=== PATIENT | female | born 1955 | race Caucasian/White ===

== ENCOUNTER 2018-09-23 00:39 | Emergency (ER) | payer BC, OTHER ==
[2018-09-23] MEDS ORDERED: ACETAMINOPHEN 500 MG TAB ONE (01:13)
--- NOTE | 2018-09-23 01:33 | ER ---
Nurse's Notes [facility] Name: Kecia Schilling Age: 63 yrs Sex: Female : 1955 Arrival Date: 09/23/2018 Time: 00:40 Bed 18 Private MD: Lizzette Guerrero R Diagnosis: Fracture distal left radius. Fracture of the left L2 transverse process Presentation: 09/23 01:00 Presenting complaint: Patient states: Reports she tripped and caught herself with her ea left hand and injured her left wrist. Transition of care: patient was not received from another setting of care. Onset of symptoms was September 23, 2018. Risk Assessment: Do you want to hurt yourself or someone else? Patient reports no desire to harm self or others. Initial Sepsis Screen: Does the patient meet any 2 criteria? No. Patient's initial sepsis screen is negative. Does the patient have a suspected source of infection? No. Patient's initial sepsis screen is negative. Care prior to arrival: None. 01:00 Method Of Arrival: Ambulatory ea 01:00 Acuity: RISSA 4 ea Triage Assessment: 01:10 General: Appears uncomfortable, Behavior is calm, cooperative, appropriate for age. ea Pain: Complains of pain in left wrist Pain does not radiate. Pain currently is 9 out of 10 on a pain scale. Quality of pain is described as aching. Neuro: Level of Consciousness is awake, alert, obeys commands, Oriented to person, place, time, situation. Cardiovascular: Patient's skin is warm and dry. Respiratory: Airway is patent Respiratory effort is even, unlabored, Respiratory pattern is regular, symmetrical. Musculoskeletal: Range of motion: limited in left wrist Swelling present in left wrist. Injury Description: swelling noted to left wrist. Historical: - Allergies: 01: Iodine; ea :26 Codeine; pt reports it causes nausea; ea - Home Meds: 01: acyclovir 400 mg Oral tab 1 tab every 8 hours [Active]; alprazolam 1 mg Oral tab 1 tab ea Q HS [Active]; aspirin 81 mg Oral chew 1 tab once daily [Active]; atenolol 100 mg Oral tab 1 tab once daily [Active]; atorvastatin 40 mg oral tab 1 tab once daily [Active]; bupropion HCl 150 mg Oral TbER 1 tab 2 times per day [Active]; furosemide 20 mg Oral tab 1 tab once daily [Active]; gabapentin 300 mg oral cap [Active]; - PMHx: :26 Hypothyroidism; Hypertension; ea - PSHx: :26 None; ea - Immunization history:: Adult Immunizations up to date. - Social history:: Smoking status: Patient/guardian denies using tobacco. - Ebola Screening: : No symptoms or risks identified at this time. Screenin:14 Abuse screen: Denies threats or abuse. Nutritional screening: No deficits noted. ea Tuberculosis screening: No symptoms or risk factors identified. Fall Risk Fall in past 12 months (25 points). Assessment: 02:06 Reassessment: Patient and/or family updated on plan of care and expected duration. Pain ea level reassessed. Patient is alert, oriented x 3, equal unlabored respirations, skin warm/dry/pink. Discharge instruction given to patient, verbalized the understanding of instruction. 02:15 Reassessment: Patient and/or family updated on plan of care and expected duration. Pain ea level reassessed. Upon discharge pt complaining of left hip pain. Charge nurse notified, provider at bedside assessing pt. 03:53 Reassessment: Patient and/or family updated on plan of care and expected duration. Pain ea level reassessed. Patient is alert, oriented x 3, equal unlabored respirations, skin warm/dry/pink. Discharge instruction given to patient, verbalized the understanding of instruciton. Vital Signs: 01:14 BP 147 / 88; Pulse 58; Resp 18; Temp 97.6; Pulse Ox 98% ; Weight 90.72 kg; Height 5 ft. ea 6 in. (167.64 cm); Pain 9/10; 03:45 BP 138 / 70; Pulse 60; Resp 18; Temp 97.6; Pulse Ox 99% ; ea 01:14 Body Mass Index 32.28 (90.72 kg, 167.64 cm) ea ED Course: 00:40 Patient arrived in ED. ds1 00:40 Lizzette Guerrero MD is Private Physician. ds1 00:41 Nimesh Vázquez MD is Attending Physician. pkl 01:00 Arm band placed on right wrist. Patient placed in an exam room, on a stretcher, on ea pulse oximetry. 01:00 Patient has correct armband on for positive identification. Bed in low position. Call ea light in reach. Side rails up X 1. 01:06 X-ray completed. Portable x-ray completed in exam room. Patient tolerated procedure kw well. 01:08 Wrist Left (3 View) XRAY In Process Unspecified. EDMS 01:13 Heather Bryant RN is Primary Nurse. ea 01:16 Triage completed. ea 01:45 Orthoglass splint: Sugar tong splint applied on left arm. Sling applied to left arm. ea 02:06 No provider procedures requiring assistance completed. Patient did not have IV access ea during this emergency room visit. 02:17 Primary Nurse role handed off by Heather Bryant RN bb 02:32 Heather Bryant RN is Primary Nurse. ea 02:38 Patient moved to radiology via wheelchair. kw 02:38 X-ray completed. Patient tolerated procedure well. kw 03:07 XRAY Hip LEFT 2 view In Process Unspecified. EDMS 03:07 XRAY Pelvis In Process Unspecified. EDMS 03:[address] via wheelchair. kw1 03:18 CT Lumbar Spine Wo Con In Process Unspecified. EDMS 03:19 CT completed. Patient tolerated procedure well. Patient moved back from CT. kw1 Administered Medications: 01:13 Drug: Tylenol 1000 mg Route: PO; ea 02:08 Follow up: Response: Pain is decreased ea 01:54 Drug: Zofran 4 mg Route: PO; ea 02:10 Follow up: Response: Medication administered at discharge. ea 01:55 Drug: [place] 5 mg-325 mg 1 tabs Route: PO; ea 02:08 Follow up: Response: Medication administered at discharge. ea Outcome: 01:32 Discharge ordered by . pkfred 02:06 Discharged to home ambulatory, with family. ea 02:06 Condition: improved 02:06 Discharge instructions given to patient, Instructed on discharge instructions, follow up and referral plans. medication usage, Demonstrated understanding of instructions, follow-up care, medications, Prescriptions given X 2. 02:08 Patient left the ED. ea 03:54 Patient left the ED. ea Signatures: Dispatcher [employer] EDNimesh Simmons MD MD pkl [place]ford, Demi ds1 Brittanie Sanchez RN RN bb Whitley, Kimberlee kw Heather Bryant RN RN ea Wilhelm, Esperanza kw1
--- NOTE | 2018-09-23 01:33 | EDPHYS ---
Physician Documentation [facility] Name: Kecia Schilling Age: 63 yrs Sex: Female : 1955 Arrival Date: 09/23/2018 Time: 00:40 Bed 18 Private MD: Lizzette Guerrero R ED Physician Nimesh Vázquez HPI: 09/23 00:51 This 63 yrs old Female presents to ER via Unassigned with complaints of Wrist pkl Injury. 00:51 The patient or guardian reports injury, pain. The complaints affect the left wrist pkl diffusely. Context: resulted from a fall. Onset: The symptoms/episode began/occurred just prior to arrival, 1 hour(s) ago. Associated signs and symptoms: The patient has no apparent associated signs or symptoms. Historical: - Allergies: : Iodine; ea 01: Codeine; pt reports it causes nausea; ea - Home Meds: : acyclovir 400 mg Oral tab 1 tab every 8 hours [Active]; alprazolam 1 mg Oral tab 1 tab ea Q HS [Active]; aspirin 81 mg Oral chew 1 tab once daily [Active]; atenolol 100 mg Oral tab 1 tab once daily [Active]; atorvastatin 40 mg oral tab 1 tab once daily [Active]; bupropion HCl 150 mg Oral TbER 1 tab 2 times per day [Active]; furosemide 20 mg Oral tab 1 tab once daily [Active]; gabapentin 300 mg oral cap [Active]; - PMHx: 01:26 Hypothyroidism; Hypertension; ea - PSHx: : None; ea - Immunization history:: Adult Immunizations up to date. - Social history:: Smoking status: Patient/guardian denies using tobacco. - Ebola Screening: : No symptoms or risks identified at this time. ROS: 00:51 Eyes: Negative for injury, pain, redness, and discharge, ENT: Negative for injury, pkl pain, and discharge, Neck: Negative for injury, pain, and swelling, Cardiovascular: Negative for chest pain, palpitations, and edema, Respiratory: Negative for shortness of breath, cough, wheezing, and pleuritic chest pain, Abdomen/GI: Negative for abdominal pain, nausea, vomiting, diarrhea, and constipation, Back: Negative for injury and pain, : Negative for injury, bleeding, discharge, and swelling, Skin: Negative for injury, rash, and discoloration, Neuro: Negative for headache, weakness, numbness, tingling, and seizure. 00:51 MS/extremity: Positive for injury or acute deformity, pain, of the left wrist. Exam: 00:51 Head/Face: Normocephalic, atraumatic. Eyes: Pupils equal round and reactive to light, pkl extra-ocular motions intact. Lids and lashes normal. Conjunctiva and sclera are non-icteric and not injected. Cornea within normal limits. Periorbital areas with no swelling, redness, or edema. ENT: Nares patent. No nasal discharge, no septal abnormalities noted. Tympanic membranes are normal and external auditory canals are clear. Oropharynx with no redness, swelling, or masses, exudates, or evidence of obstruction, uvula midline. Mucous membranes moist. Neck: Trachea midline, no thyromegaly or masses palpated, and no cervical lymphadenopathy. Supple, full range of motion without nuchal rigidity, or vertebral point tenderness. No Meningismus. Chest/axilla: Normal chest wall appearance and motion. Nontender with no deformity. No lesions are appreciated. Cardiovascular: Regular rate and rhythm with a normal S1 and S2. No gallops, murmurs, or rubs. Normal PMI, no JVD. No pulse deficits. Respiratory: Lungs have equal breath sounds bilaterally, clear to auscultation and percussion. No rales, rhonchi or wheezes noted. No increased work of breathing, no retractions or nasal flaring. Abdomen/GI: Soft, non-tender, with normal bowel sounds. No distension or tympany. No guarding or rebound. No evidence of tenderness throughout. Back: No spinal tenderness. No costovertebral tenderness. Full range of motion. Skin: Warm, dry with normal turgor. Normal color with no rashes, no lesions, and no evidence of cellulitis. Neuro: Awake and alert, GCS 15, oriented to person, place, time, and situation. Cranial nerves II-XII grossly intact. Motor strength 5/5 in all extremities. Sensory grossly intact. Cerebellar exam normal. Normal gait. 00:51 Musculoskeletal/extremity: Extremities: grossly normal except: noted in the left wrist: pain, tenderness. Vital Signs: 01:14 BP 147 / 88; Pulse 58; Resp 18; Temp 97.6; Pulse Ox 98% ; Weight 90.72 kg; Height 5 ft. ea 6 in. (167.64 cm); Pain 9/10; 03:45 BP 138 / 70; Pulse 60; Resp 18; Temp 97.6; Pulse Ox 99% ; ea 01:14 Body Mass Index 32.28 (90.72 kg, 167.64 cm) ea Procedures: 01:35 Splinting: Splint applied to left wrist using sling, sugar tong splint. applied by pkl tech. Examined by me, post splint application: neurovascular intact, 2+ distal pulses palpable, brisk capillary refill noted, Patient tolerated well. MDM: 00:41 Patient medically screened. pkl 01:31 Data reviewed: vital signs, nurses notes, radiologic studies, plain films. pkl 03:33 ED course: Patient now complain of left pelvic and low back pain. Xrays left hip and pkl pelvis showed no fractures. CT Scan of lumbar showed fracture of the left L2 transverse process. 09/23 00:51 Order name: Wrist Left (3 View) XRAY pkl 09/23 02:18 Order name: XRAY Hip LEFT 2 view 09/23 02:22 Order name: XRAY Pelvis 09/23 02:53 Order name: CT Lumbar Spine Wo Con pkl 09/23 01:35 Order name: Splint - Sugar Tong - Forearm; Complete Time: 02:08 pkl 09/23 01:35 Order name: Sling; Complete Time: 02:08 pkl Administered Medications: 01:13 Drug: Tylenol 1000 mg Route: PO; ea 02:08 Follow up: Response: Pain is decreased ea 01:54 Drug: Zofran 4 mg Route: PO; ea 02:10 Follow up: Response: Medication administered at discharge. ea 01:55 Drug: [place] 5 mg-325 mg 1 tabs Route: PO; ea 02:08 Follow up: Response: Medication administered at discharge. ea Disposition: 09/23/18 01:32 Discharged to Home. Impression: Fracture distal left radius. Fracture of the left L2 transverse process. - Condition is Stable. - Prescriptions for Ultram 50 mg Oral Tablet - take 1 tablet by ORAL route every 8 hours As needed; 20 tablet. Zofran 4 mg Oral Tablet - take 1 tablet by ORAL route every 12 hours As needed; 10 tablet. - Medication Reconciliation Form, Thank You Letter, Antibiotic Education, Prescription Opioid Use form. - Follow up: Private Physician; When: 1 - 2 days; Reason: Re-evaluation by your physician. - Problem is new. - Symptoms have improved. Signatures: Dispatcher [employer] EDMS Nimesh Vázquez MD MD pkl Heather Bryant RN JOSE ea Corrections: (The following items were deleted from the chart) 02:08 01:32 09/23/2018 01:32 Discharged to Home. Impression: Fracture distal left radius. ea Condition is Stable. Forms are Medication Reconciliation Form, Thank You Letter, Antibiotic Education, Prescription Opioid Use. Follow up: Private Physician; When: 1 - 2 days; Reason: Re-evaluation by your physician. Problem is new. Symptoms have improved. pkl 03:37 02:08 09/23/2018 01:32 Discharged to Home. Impression: Fracture distal left radius. pkl Condition is Stable. Prescriptions for Ultram 50 mg Oral Tablet - take 1 tablet by ORAL route every 8 hours As needed; 20 tablet, Zofran 4 mg Oral Tablet - take 1 tablet by ORAL route every 12 hours As needed; 10 tablet. and Forms are Medication Reconciliation Form, Thank You Letter, Antibiotic Education, Prescription Opioid Use. Follow up: Private Physician; When: 1 - 2 days; Reason: Re-evaluation by your physician. Problem is new. Symptoms have improved. ea 03:54 03:37 09/23/2018 01:32 Discharged to Home. Impression: Fracture distal left radius. ea Fracture of the left L2 transverse process. Condition is Stable. Prescriptions for Ultram 50 mg Oral Tablet - take 1 tablet by ORAL route every 8 hours As needed; 20 tablet, Zofran 4 mg Oral Tablet - take 1 tablet by ORAL route every 12 hours As needed; 10 tablet. and Forms are Medication Reconciliation Form, Thank You Letter, Antibiotic Education, Prescription Opioid Use. Follow up: Private Physician; When: 1 - 2 days; Reason: Re-evaluation by your physician. Problem is new. Symptoms have improved. pkl
[2018-09-23] MEDS ORDERED: HYDROCODONE/APAP 5/325 MG TAB ONE (01:59)
[2018-09-23] MEDS ORDERED: ONDANSETRON 4 MG (ODT) TAB ONE (02:00)
--- NOTE | 2018-09-23 08:29 | RAD REPORT ---
EXAM DESCRIPTION: RAD - Wrist Left 3 View - 09/23/2018 1:08 am CLINICAL HISTORY: fall;Pain Pain COMPARISON: No comparisons FINDINGS: Mildly impacted fracture of the distal radial metaphysis is present. Soft tissue swelling is noted without dislocation seen.
--- NOTE | 2018-09-23 08:48 | RAD REPORT ---
EXAM DESCRIPTION: RAD - Hip Left 2 View - 09/23/2018 2:41 am CLINICAL HISTORY: PAIN Fall, trauma, left hip pain COMPARISON: None FINDINGS: AP pelvis and left hip, multiple projections are submitted No fracture, dislocation or AVN is seen. No aggressive bone lesion.
--- NOTE | 2018-09-23 08:53 | RAD REPORT ---
EXAM DESCRIPTION: CT - Spine Lumbar Wo Con - 09/23/2018 5:54 am CLINICAL HISTORY: Radiculopathy. fall;Lower back pain COMPARISON: No comparisons TECHNIQUE: Axial noncontrast CT imaging of the lumbar spine was performed with coronal and sagittal re-formatted images. All CT scans are performed using dose optimization technique as appropriate and may include automated exposure control or mA/KV adjustment according to patient size. FINDINGS: Fracture of the left L2 transverse process is noted. No additional fracture seen. No aggre ssive marrow pattern or malalignment. Paraspinal tissues are normal in thickness. No paraspinal abscess or hematoma seen. Mild spondylosis is present at L2-3 with a posterior disc bulge. IMPRESSION: Fracture of left L2 transverse process. Consider MRI follow-up for assessment of disc disease if clinically desired.
--- NOTE | 2018-09-23 09:42 | RAD REPORT ---
EXAM DESCRIPTION: RAD - Pelvis - 09/23/2018 2:44 am CLINICAL HISTORY: PAIN Fall, trauma, left hip pain COMPARISON: None FINDINGS: AP pelvis and left hip, multiple projections are submitted No fracture, dislocation or AVN is seen. No aggressive bone lesion.
== END 2018-09-23 03:54 | disposition home or self-care (01) ==
LOC: ER 00:39
PROC: 2W3DX1Z Immobilization of Left Lower Arm using Splint (ICD-10-PCS; principal; 2018-09-23)
DX: S52.502A Unspecified fracture of the lower end of left radius, initial encounter for closed fracture (principal); S32.028A Other fracture of second lumbar vertebra, initial encounter for closed fracture; W18.40XA Slipping, tripping and stumbling without falling, unspecified, initial encounter; E03.9 Hypothyroidism, unspecified; I10 Essential (primary) hypertension; Z79.82 Long term (current) use of aspirin; Z79.899 Other long term (current) drug therapy
CPT/HCPCS: 72131; 72170; 99284

== ENCOUNTER 2019-01-05 08:36 | Inpatient (IN) | payer BC ==
--- OUTSIDE RECORDS SUMMARY | 2019-01-05 08:38 | XMS REPORT ---
:1955 [facility] Address [address] [place] [address] Care Team Providers Name Role Phone Unavailable Unavailable Unavailable Problems This patient has no known problems. Allergies, Adverse Reactions, Alerts This patient has no known allergies or adverse reactions. Medications This patient has no known medications.
--- OUTSIDE RECORDS SUMMARY | 2019-01-05 08:38 | XMS REPORT ---
:1955 Author Organization [employer] Care Team Providers Name Role Phone Rc Griffin Provider Role Unavailable Allergies, Adverse Reactions, Alerts Substance Reaction Event Type codeine nausea and vomiting Drug Allergy Problems Problem Type Condition Code Onset Dates Condition Status Problem Acute pain of left wrist M25.532 Active Problem Closed torus fracture of distal S52.522A Active end of left radius, initial encounter Problem Torus fracture of lower end of S52.522D Active left radius, subsequent encounter for fracture with routine healing Assessment Torus fracture of lower end of S52.522D Active left radius, subsequent encounter for fracture with routine healing Assessment Acute pain of left wrist M25.532 Active Medications Medication Code System Code Instructions Start End Date Status Dosage Date Gabapentin NDC 0 Active not defined Tramadol HCl NDC 0 Active not defined HydrALAZINE HCl [facility] 13958-91 Active not defined 34-15 Atenolol NDC 0 Active not defined Ranitidine NDC 0 [place] [address]-10 Active not defined 67-75 [place] [address]-83 Active not defined Calcium 57-98 Vitamin E [facility] 36386-82 Active not defined 685 [place] [address]-12 Active not defined Potassium-HCTZ 69-10 potassium NDC 0 Active not defined Oscal 500/200 D-3 [facility] 28545-49 Active not defined 51-07 Aspirin 81 [facility] 56040-51 Active not defined 381 [place] [address]-22 Active not defined 25-11 BuPROPion HCl ER [facility] 65078-28 Active not defined (SR) 45-13 Acyclovir [facility] 69951-03 Active not defined 49-01 Fluticasone [facility] 45601-81 Active not defined Propionate 75-01 Mucinex [facility] 77499-09 Active not defined 45-20 [place] [address]-35 Active not defined 39-10 [place] [address]-35 Active not defined 82-20 Levothyroxine [facility] 76968-40 Active not defined Sodium 01-01 Results No Known Results Summary Purpose [employer] Submission
--- OUTSIDE RECORDS SUMMARY | 2019-01-05 08:38 | XMS REPORT ---
:1955 Author Organization [employer] Care Team Providers Name Role Phone Rc Griffin Provider Role Unavailable Allergies, Adverse Reactions, Alerts Substance Reaction Event Type codeine nausea and vomiting Drug Allergy Problems Problem Type Condition Code Onset Dates Condition Status Assessment Encounter for other orthopedic Z47.89 Active aftercare Problem Torus fracture of lower end of S52.522D Active left radius, subsequent encounter for fracture with routine healing Problem Acute pain of left wrist M25.532 Active Problem Encounter for other orthopedic Z47.89 Active aftercare Assessment Acute pain of left wrist M25.532 Active Assessment Torus fracture of lower end of S52.522D Active left radius, subsequent encounter for fracture with routine healing Problem Closed torus fracture of distal S52.522A Active end of left radius, initial encounter Medications Medication Code System Code Instructions Start End Date Status Dosage Date BuPROPion HCl ER [facility] 02104-24 Active not defined (SR) 45-13 Gabapentin [facility] 22495-27 Active not defined 40-01 HydrALAZINE HCl [facility] 04690-25 Active not defined 34-15 Tramadol HCl NDC 0 Active not defined Mucinex [facility] 24591-91 Active not defined 45-20 Fluticasone [facility] 14398-64 Active not defined Propionate 75-01 Acyclovir [facility] 25993-70 Active not defined 49-01 Oscal 500/200 D-3 [facility] 56236-81 Active not defined 51-07 Furosemide [facility] 65769-13 Active not defined 39-10 Ranitidine NDC 0 Active not defined Vitamin E [facility] 85477-62 Active not defined 685 Aspirin 81 [facility] 65317-25 Active not defined 381 Fish Oil [facility] 49431-46 Active not defined 67-75 Atorvastatin [facility] 11635-22 Active not defined Calcium 57-98 potassium NDC 0 Active not defined Alprazolam [facility] 60723-72 Active not defined 25-11 Levothyroxine [facility] 11681-93 Active not defined Sodium 01-01 Ventolin HFA [facility] 31507-41 Active not defined 82-20 Atenolol ND 0 Active not defined Losartan [facility] 94610-65 Active not defined Potassium-HCTZ 69-10 Results No Known Results Summary Purpose [employer] Submission
--- OUTSIDE RECORDS SUMMARY | 2019-01-05 08:38 | XMS REPORT ---
[...] Instructions Start End Date Status Dosage Date Losartan [facility] 70255-49 Active not defined Potassium-HCTZ 69-10 Furosemide [facility] 74048-97 Active not defined 39-10 Alprazolam [facility] 30217-05 Active not defined 25-11 Fluticasone [facility] 55477-02 Active not defined Propionate 75-01 Gabapentin [facility] 49089-04 Active not defined 40-01 Oscal 500/200 D-3 [facility] 52736-56 Active not defined 51-07 HydrALAZINE HCl [facility] 95126-09 Active not defined 34-15 BuPROPion HCl ER [facility] 97013-48 Active not defined (SR) 45-13 Levothyroxine [facility] 28870-41 Active not defined Sodium 01-01 Atorvastatin [facility] 88305-35 Active not defined Calcium 57-98 Tramadol HCl NDC 0 Active not defined potassium NDC 0 Active not defined Vitamin E [facility] 43793-16 Active not defined 685 Atenolol NDC 0 Active not defined Ventolin HFA [facility] 44787-82 Active not defined 82-20 Ranitidine NDC 0 Active not defined Acyclovir [facility] 33090-81 Active not defined 49-01 Aspirin 81 [facility] 15050-09 Active not defined 381 Fish Oil [facility] 20581-52 Active not defined 67-75 Mucinex [facility] 60720-33 Active not defined 45-20 Results No Known Results Summary Purpose [employer] Submission
[2019-01-05 09:18] LABS: Absolute Lymphocytes (CBC) 1.5 K/uL (0.7-4.9); Absolute Monocytes 2.3 K/uL (0.1-1.3); Absolute Neutrophil 15.7 K/uL (1.8-8.0); Basophils % 0.1 % (0-1.3); Eosinophils % 0.7 % (0-4.4); Lymphocytes % 7.8 % (15.3-44.8); MPV 7.7 fL (7.6-11.3); Monocytes % 11.9 % (3.3-12.3); RBC Red Blood Cell Count 4.18 M/uL (3.86-4.86)
[2019-01-05] MEDS ORDERED: NA CHLORIDE 0.9% 1,000 ML ONE ×3 (09:18→16:07)
[2019-01-05 09:44] LABS: BUN Blood Urea Nitrogen 6 mg/dL (7-18); Bicarbonate 29 mmol/L (21-32); Glucose Level 133 mg/dL (74-106); Potassium 2.6 mmol/L (3.5-5.1)
[2019-01-05 09:49] LABS: Sodium Level 113 mmol/L (136-145)
[2019-01-05] MEDS ORDERED: POTASSIUM CL SA 10 MEQ TAB PO ONE (10:11)
[2019-01-05] MEDS ORDERED: KCL 20 MEQ/100 mL IVPB 0 MEQ/0 ML BAG IV ONE (10:12)
[2019-01-05] MEDS ORDERED: HYDROCODONE/APAP 5/325 MG TAB ONE ×2 (10:12→16:52)
[2019-01-05] MEDS ORDERED: ONDANSETRON 4 MG/2 ML VIAL ONE ×2 (10:12→18:25)
--- NOTE | 2019-01-05 10:35 | ER ---
Nurse's Notes [facility] Name: Kecia Schilling Age: 63 yrs Sex: Female : 1955 Arrival Date: 01/05/2019 Time: 08:39 Bed 19 Private MD: Lizzette Guerrero R Diagnosis: Hyponatremia;Hypokalemia;Weakness;Influenza due to identified novel influenza A virus Presentation: 01/05 08:56 Presenting complaint: Patient states: Flu like symptoms/body aches, cough, congestion for the past 7 days, taking tamiflu and cefuroxime 500 mg bid, now c/o difficulty starting her urine stream.c/o generalized body aches. Transition of care: patient was not received from another setting of care. Onset of symptoms was December 29, 2018. Risk Assessment: Do you want to hurt yourself or someone else? Patient reports no desire to harm self or others. Initial Sepsis Screen: Does the patient meet any 2 criteria? No. Patient's initial sepsis screen is negative. Does the patient have a suspected source of infection? No. Patient's initial sepsis screen is negative. Care prior to arrival: None. 08:56 Method Of Arrival: Wheelchair 08:56 Acuity: RISSA 3 Triage Assessment: 08:58 General: Appears in no apparent distress. comfortable, Behavior is fussy. Pain: Complains of pain in head, neck, chest, abdomen, pelvis, right arm, right hand, left arm, left hand, right leg, right foot, left leg, left foot, back of head, back of left arm, back of right arm, posterior chest, buttocks, back of left leg, back of right leg, left heel, right heel and back Pain currently is 7 out of 10 on a pain scale. EENT: Reports nasal congestion nasal discharge. Respiratory: Reports cough that is Airway is patent Respiratory effort is even, unlabored. Historical: - Allergies: 08:58 Codeine; pt reports it causes nausea; ch 08:58 Iodine; ch - Home Meds: 09:22 acyclovir 400 mg Oral tab 1 tab every 8 hours [Active]; alprazolam 1 mg Oral tab 1 tab ch Q hs [Active]; aspirin 81 mg oral TbEC 1 tab once daily [Active]; atenolol 100 mg Oral tab 1 tab once daily [Active]; atorvastatin 40 mg Oral tab 1 tab once daily [Active]; bupropion HCl 150 mg Oral TbER 1 tab 2 times per day [Active]; Claritin 10 mg Oral tab 1 tab once daily [Active]; Fish Oil oral oral [Active]; fluticasone 50 mcg/actuation nasal spsn 1 spray 2 times per day [Active]; furosemide 20 mg Oral tab 1 tab every other day-edema [Active]; gabapentin 300 mg Oral cap 1 cap twice a day [Active]; gabapentin 600 mg oral tab 1 tab 3 times per day [Active]; hydralazine 50 mg Oral tab 1 tab three times a day [Active]; levothyroxine 137 mcg tab 1 tab once daily [Active]; losartan-hydrochlorothiazide 100-25 mg oral tab 1 tab once daily [Active]; Mucinex 1,200 mg oral Ta12 [Active]; oscal 500mg one tab bid [Active]; ranitidine HCl 150 mg Oral cap 1 cap 2 times per day [Active]; Ventolin Rotahaler/Rotacaps Inhl two inhalations every 6 hours prn [Active]; vitamin E 400 unit Oral cap three times a day [Active]; - PMHx: 08:58 Hypertension; Hypothyroidism; Chronic pain; ch 09:33 mitral valve prolapse; Hyperlipidemia; trigeminal neuralgia; "allergies-severe"; edema ch R leg occasionally; neck pain; - PSHx: 09:33 Hysterectomy; neck; ch - Immunization history:: Adult Immunizations up to date, Flu vaccine status is unknown. - Social history:: Smoking status: Patient/guardian denies using tobacco, Patient/guardian denies using alcohol, street drugs. - Ebola Screening: : Patient negative for fever greater than or equal to 101.5 degrees Fahrenheit, and additional compatible Ebola Virus Disease symptoms Patient denies exposure to infectious person Patient denies travel to an Ebola-affected area in the 21 days before illness onset No symptoms or risks identified at this time. Screenin:22 Abuse screen: Denies threats or abuse. Denies injuries from another. Nutritional ch screening: No deficits noted. Tuberculosis screening: No symptoms or risk factors identified. Fall Risk None identified. Assessment: 09:13 Reassessment: awaiting lab results prior to medicating pt with tordal. ch 10:00 Reassessment: Patient appears in no apparent distress at this time. Patient and/or family updated on plan of care and expected duration. Pain level reassessed. Patient is alert, oriented x 3, equal unlabored respirations, skin warm/dry/pink. Patient states symptoms have not improved. 11:00 Reassessment: Patient appears in no apparent distress at this time. No changes from previously documented assessment. Patient and/or family updated on plan of care and expected duration. Pain level reassessed. Patient is alert, oriented x 3, equal unlabored respirations, skin warm/dry/pink. pt labs returned, pt medicated per order, placed on tele, ekg, medications administered. pt c/o pain, medicated for that as well. pt verb understanding of admission. 12:00 Reassessment: Patient appears in no apparent distress at this time. No changes from previously documented assessment. Patient and/or family updated on plan of care and expected duration. Pain level reassessed. Patient is alert, oriented x 3, equal unlabored respirations, skin warm/dry/pink. 13:00 Reassessment: Patient appears in no apparent distress at this time. 14:00 Reassessment: Patient appears in no apparent distress at this time. pt is admitted to ICU, er hold, started at 1400. see [facility] for details. 01/06 07:00 Reassessment: RECD REPORT FROM VIN GARCIA. 63YO WF P/W FLU-LIKE S/S. ICU ADMIT IN PROCESS bp FOR INFLUENZA AND HYPONATREMIA. SEE [facility] FOR FURTHER DOCUMENTATION. Vital Signs: 01/05 08:58 BP 138 / 60; Pulse 54; Resp 14; Temp 97.4(O); Pulse Ox 99% ; Weight 90.72 kg; Height 5 ft. 4 in. (162.56 cm); Pain 7/10; 09:12 BP 125 / 58; Pulse 64; Resp 14; Temp 97.6; Pulse Ox 99% on R/A; Pain 7/10; ch 10:28 BP 146 / 78; Pulse 54; Resp 16; Temp 97.9; Pulse Ox 96% on R/A; Pain 7/10; ss 11:25 BP 149 / 62; Pulse 58; Resp 18; Temp 97.6; Pulse Ox 96% on R/A; Pain 6/10; ch 12:25 BP 151 / 78; Pulse 56; Resp 16; Pulse Ox 96% on R/A; Pain 6/10; ch 13:15 BP 151 / 73; Pulse 61; Resp 19; Temp 97.4; Pulse Ox 96% on R/A; Pain 5/10; ch 08:58 Body Mass Index 34.33 (90.72 kg, 162.56 cm) ch ED Course: 08:39 Patient arrived in ED. mr 08:40 Lizzette Guerrero MD is Private Physician. mr 08:40 Rosemary Cardenas [facility]-C [facility]. kb 08:40 Felix Lopez MD is Attending Physician. kb 08:56 Marcela Chavis, JOSE is Primary Nurse. ch 08:58 Triage completed. ch 08:58 Arm band placed on left wrist. Patient placed in an exam room, on a stretcher, on pulse ch oximetry. 09:00 Inserted saline lock: 18 gauge in right antecubital area, using aseptic technique. Blood collected. 09:12 Basic Metabolic Panel Sent. ch 09:12 CBC with Diff Sent. ch 09:22 Patient has correct armband on for positive identification. Bed in low position. Call light in reach. Side rails up X2. Adult w/ patient. Pulse ox on. NIBP on. Warm blanket given. Pillow given. PO fluids given. 09:22 No provider procedures requiring assistance completed. ch 09:24 X-ray completed. la2 09:24 Chest Pa And Lat (2 Views) XRAY In Process Unspecified. EDMS 10:28 Urine Osmolality Sent. ss 10:28 Osmolality, Serum Sent. ss 10:28 Urine Sodium Random Sent. ss 10:28 Phosphorus Sent. ss 10:33 Narcisa Vasquez MD is Hospitalizing Provider. kb 12:00 Inserted saline lock: 22 gauge in left hand, using aseptic technique. ch 12:00 Patient admitted, IV remains in place. ch 13:00 No apparent distress. Resting quietly. ch 13:00 hospital monitor on. ch 19:28 Phosphorus Sent. ch 19:28 BMP Sent. ch 19:28 Magnesium Sent. ch 19:28 Urine Potassium Random Sent. ch 01/06 07:30 Patient moved to radiology via wheelchair. jb2 07:41 X-ray completed. Patient tolerated procedure well. Patient moved back from radiology. jb2 Administered Medications: 01/05 09:11 Drug: NS 0.9% 1000 ml Route: IV; Rate: 1000 ml; Site: right antecubital; ch 09:45 Follow up: IV Status: Completed infusion; IV Intake: 1000ml ch 09:52 CANCELLED (Other Intervention Used): NS 0.9% with KCl 40 mEq/L 1000 ml IV at 250 ml/hr kb continuous 10:05 Drug: Zofran 4 mg Route: IVP; Site: right antecubital; ss 12:50 Follow up: Response: No adverse reaction ch 10:08 Drug: NS 0.9% 1000 ml Route: IV; Rate: 75 ml/hr; Site: right antecubital; ss 13:29 Follow up: IV Status: Infusion continued upon admission; IV Intake: 300ml ch 10:10 Drug: [place] 5 mg-325 mg 1 tabs Route: PO; ss 13:26 Follow up: Response: No adverse reaction; Marked relief of symptoms ch 10:15 Drug: Potassium Chloride 20 mEq Route: IV; Rate: calculated rate; Site: right ss antecubital; 13:27 Follow up: IV Status: Completed infusion; IV Intake: 100ml ch 10:17 Drug: Potassium Chloride 40 mEq Route: PO; ss 13:28 Follow up: Response: No adverse reaction; No change in condition ch 13:05 Drug: Gabapentin 600 mg Route: PO; ch 16:30 Follow up: Response: No adverse reaction ch 13:05 Drug: morphine 2 mg Route: IVP; Site: right antecubital; ch 16:29 Follow up: Response: No adverse reaction ch 13:15 Drug: Potassium Phosphate 15 mmol Route: IV; Rate: calculated rate; Site: right ch antecubital; 13:28 Follow up: IV Status: Infusion continued upon admission ch 17:20 Drug: Gabapentin 300 mg Route: PO; ch 19:00 Follow up: Response: No adverse reaction ch 17:20 Drug: Atenolol 100 mg Route: PO; ch 19:20 Follow up: Response: No adverse reaction ss Intake: 09:45 IV: 1000ml; Total: 1000ml. ch 13:27 IV: 100ml; Total: 1100ml. ch 13:29 IV: 300ml; Total: 1400ml. ch Outcome: 10:34 Decision to Hospitalize by Provider. kb 03/11 16:33 Admitted to ICU accompanied by nurse, via stretcher, room 3, on monitor, with chart, bp Report called to MAYA GARCIA Condition: stable Instructed on the need for admit. 16:34 Patient left the ED. bp Signatures: Dispatcher [employer] EDMS Rosemary Cardenas, DAMAGE ASSESSOR-C DAMAGE ASSESSOR-Marcela Durham, RN RN Kady Torres Jesse jb2 Deisi Cruz RN RN Jannette Scanlon Brian, RN RN bp Corrections: (The following items were deleted from the chart) 01/05 09:24 09:23 X-ray completed. Portable x-ray completed in exam room. Patient tolerated la2 procedure well. la2 01/06 08:06 07:30 BP 149 / 65; Pulse 71bpm; Resp 16bpm; Pulse Ox 97%; bp bp
--- NOTE | 2019-01-05 10:35 | EDPHYS ---
Physician Documentation [facility] Name: Kecia Schilling Age: 63 yrs Sex: Female : 1955 Arrival Date: 01/05/2019 Time: 08:39 Bed 19 Private MD: Lizzette Guerrero R ED Physician Felix Lopez HPI: 01/05 10:35 This 63 yrs old Female presents to ER via Wheelchair with complaints of Flu kb Symptoms. 10:35 The patient or guardian reports cough, that is intermittent, described as moderate, kb with no sputum, flu symptoms, arthralgias, low-grade fever, myalgias, no appetite. Onset: The symptoms/episode began/occurred 1 week(s) ago. Severity of symptoms: At their worst the symptoms were moderate, in the emergency department the symptoms are unchanged. Modifying factors: The symptoms are alleviated by nothing, the symptoms are aggravated by nothing. Associated signs and symptoms: Pertinent positives: fever, rhinorrhea, sore throat, Pertinent negatives: chest pain, diarrhea, ear ache, nausea, vomiting. The patient has not experienced similar symptoms in the past. The patient has been recently seen by a physician: the patient's primary care provider, Dr. Barnes 4 day(s) ago, with similar presenting complaints, and apparently given a diagnosis of flu A, bronchitis, and sinus infection, was given a prescription for antibiotics. Historical: - Allergies: 08:58 Codeine; pt reports it causes nausea; ch 08:58 Iodine; ch - Home Meds: 09:22 acyclovir 400 mg Oral tab 1 tab every 8 hours [Active]; alprazolam 1 mg Oral tab 1 tab ch Q hs [Active]; aspirin 81 mg oral TbEC 1 tab once daily [Active]; atenolol 100 mg Oral tab 1 tab once daily [Active]; atorvastatin 40 mg Oral tab 1 tab once daily [Active]; bupropion HCl 150 mg Oral TbER 1 tab 2 times per day [Active]; Claritin 10 mg Oral tab 1 tab once daily [Active]; Fish Oil oral oral [Active]; fluticasone 50 mcg/actuation nasal spsn 1 spray 2 times per day [Active]; furosemide 20 mg Oral tab 1 tab every other day-edema [Active]; gabapentin 300 mg Oral cap 1 cap twice a day [Active]; gabapentin 600 mg oral tab 1 tab 3 times per day [Active]; hydralazine 50 mg Oral tab 1 tab three times a day [Active]; levothyroxine 137 mcg tab 1 tab once daily [Active]; losartan-hydrochlorothiazide 100-25 mg oral tab 1 tab once daily [Active]; Mucinex 1,200 mg oral Ta12 [Active]; oscal 500mg one tab bid [Active]; ranitidine HCl 150 mg Oral cap 1 cap 2 times per day [Active]; Ventolin Rotahaler/Rotacaps Inhl two inhalations every 6 hours prn [Active]; vitamin E 400 unit Oral cap three times a day [Active]; - PMHx: 08:58 Hypertension; Hypothyroidism; Chronic pain; ch 09:33 mitral valve prolapse; Hyperlipidemia; trigeminal neuralgia; "allergies-severe"; edema ch R leg occasionally; neck pain; - PSHx: 09:33 Hysterectomy; neck; ch - Immunization history:: Adult Immunizations up to date, Flu vaccine status is unknown. - Social history:: Smoking status: Patient/guardian denies using tobacco, Patient/guardian denies using alcohol, street drugs. - Ebola Screening: : Patient negative for fever greater than or equal to 101.5 degrees Fahrenheit, and additional compatible Ebola Virus Disease symptoms Patient denies exposure to infectious person Patient denies travel to an Ebola-affected area in the 21 days before illness onset No symptoms or risks identified at this time. ROS: 10:34 ENT: Negative for injury, pain, and discharge, Neck: Negative for injury, pain, and kb swelling, Cardiovascular: Negative for chest pain, palpitations, and edema, Abdomen/GI: Negative for abdominal pain, nausea, vomiting, diarrhea, and constipation, Back: Negative for injury and pain, : Negative for injury, bleeding, discharge, and swelling, MS/Extremity: Negative for injury and deformity, Skin: Negative for injury, rash, and discoloration, Neuro: Negative for headache, weakness, numbness, tingling, and seizure. 10:34 Constitutional: Positive for body aches, chills, fatigue, fever, malaise, Negative for poor PO intake, weight loss. 10:34 Respiratory: Positive for cough, Negative for dyspnea on exertion, hemoptysis, orthopnea, pleurisy, shortness of breath, sputum production, wheezing. Exam: 10:34 Constitutional: This is a well developed, well nourished patient who is awake, alert, kb and in no acute distress. Head/Face: Normocephalic, atraumatic. ENT: Nares patent. No nasal discharge, no septal abnormalities noted. Tympanic membranes are normal and external auditory canals are clear. Oropharynx with no redness, swelling, or masses, exudates, or evidence of obstruction, uvula midline. Mucous membranes moist. Neck: Trachea midline, no thyromegaly or masses palpated, and no cervical lymphadenopathy. Supple, full range of motion without nuchal rigidity, or vertebral point tenderness. No Meningismus. Chest/axilla: Normal chest wall appearance and motion. Nontender with no deformity. No lesions are appreciated. Cardiovascular: Regular rate and rhythm with a normal S1 and S2. No gallops, murmurs, or rubs. Normal PMI, no JVD. No pulse deficits. Respiratory: Lungs have equal breath sounds bilaterally, clear to auscultation and percussion. No rales, rhonchi or wheezes noted. No increased work of breathing, no retractions or nasal flaring. Abdomen/GI: Soft, non-tender, with normal bowel sounds. No distension or tympany. No guarding or rebound. No evidence of tenderness throughout. Back: No spinal tenderness. No costovertebral tenderness. Full range of motion. Skin: Warm, dry with normal turgor. Normal color with no rashes, no lesions, and no evidence of cellulitis. MS/ Extremity: Pulses equal, no cyanosis. Neurovascular intact. Full, normal range of motion. Neuro: Awake and alert, GCS 15, oriented to person, place, time, and situation. Cranial nerves II-XII grossly intact. Motor strength 5/5 in all extremities. Sensory grossly intact. Cerebellar exam normal. Normal gait. Vital Signs: 08:58 BP 138 / 60; Pulse 54; Resp 14; Temp 97.4(O); Pulse Ox 99% ; Weight 90.72 kg; Height 5 ch ft. 4 in. (162.56 cm); Pain 7/10; 09:12 BP 125 / 58; Pulse 64; Resp 14; Temp 97.6; Pulse Ox 99% on R/A; Pain 7/10; ch 10:28 BP 146 / 78; Pulse 54; Resp 16; Temp 97.9; Pulse Ox 96% on R/A; Pain 7/10; ss 11:25 BP 149 / 62; Pulse 58; Resp 18; Temp 97.6; Pulse Ox 96% on R/A; Pain 6/10; ch 12:25 BP 151 / 78; Pulse 56; Resp 16; Pulse Ox 96% on R/A; Pain 6/10; ch 13:15 BP 151 / 73; Pulse 61; Resp 19; Temp 97.4; Pulse Ox 96% on R/A; Pain 5/10; ch 08:58 Body Mass Index 34.33 (90.72 kg, 162.56 cm) ch MDM: 08:40 Patient medically screened. kb 10:32 Data reviewed: vital signs, nurses notes. Data interpreted: Pulse oximetry: on room air kb is 96 %. Interpretation: normal. Counseling: I had a detailed discussion with the patient and/or guardian regarding: the historical points, exam findings, and any diagnostic results supporting the discharge/admit diagnosis, lab results, radiology results, the need for further work-up and treatment in the hospital. Physician consultation: Narcisa Vasquez MD was contacted at 10:32, regarding admission, to the telemetry unit. patient's condition, and will see patient in ED, shortly. 01/05 08:50 Order name: CBC with Diff; Complete Time: 10:39 kb 01/05 08:50 Order name: Basic Metabolic Panel; Complete Time: 09:50 kb 01/05 09:25 Order name: CBC Smear Scan; Complete Time: 10:39 EDMS 01/05 09:52 Order name: Phosphorus; Complete Time: 10:48 kb 01/05 09:52 Order name: Urine Sodium Random; Complete Time: 10:51 kb 01/05 09:52 Order name: Osmolality, Serum; Complete Time: 10:50 kb 01/05 09:52 Order name: Urine Osmolality; Complete Time: 10:50 kb 01/05 10:32 Order name: Blood Culture Adult (2) kb 01/05 10:32 Order name: Procalcitonin; Complete Time: 11:36 kb 01/05 10:32 Order name: Lactate; Complete Time: 11:46 kb 01/05 10:33 Order name: Urine Dipstick--Ancillary (enter results); Complete Time: 11:11 ms 01/05 11:10 Order name: CKMB Creatine Kinase MB; Complete Time: 16:35 EDMS 01/05 11:10 Order name: Creatine Phosphokinase; Complete Time: 16:35 EDMS 01/05 11:10 Order name: Sputum Culture EDMS 01/05 08:50 Order name: Chest Pa And Lat (2 Views) XRAY; Complete Time: 11:24 kb 01/05 11:10 Order name: Urinalysis; Complete Time: 15:05 EDMS 01/05 13:48 Order name: Urine Potassium Random ss 01/05 14:01 Order name: UR POTASSIUM; Complete Time: 14:05 EDMS 01/05 16:29 Order name: Magnesium ch 01/05 16:29 Order name: BMP ch 01/05 16:29 Order name: Phosphorus ch 01/05 18:31 Order name: Basic Metabolic Panel; Complete Time: 15:05 EDMS 01/05 18:31 Order name: Phosphorus; Complete Time: 15:05 EDMS 01/05 18:31 Order name: Magnesium; Complete Time: 15:05 EDMS 01/06 00:22 Order name: Urine Microscopic Only; Complete Time: 15:05 EDMS 01/06 05:41 Order name: CBC with Automated Diff; Complete Time: 15:05 EDMS 01/06 06:03 Order name: Comprehensive Metabolic Panel; Complete Time: 15:05 EDMS 01/06 06:03 Order name: Phosphorus; Complete Time: 15:05 EDMS 01/06 06:03 Order name: Magnesium; Complete Time: 15:05 EDMS 01/06 16:31 Order name: Basic Metabolic Panel; Complete Time: 16:55 EDMS 01/05 08:50 Order name: IV Start; Complete Time: 09:42 kb 01/05 08:50 Order name: Urine Dipstick-Ancillary (obtain specimen); Complete Time: 10:28 kb 01/05 09:53 Order name: EKG; Complete Time: 09:53 kb 01/05 09:53 Order name: EKG - Nurse/Tech; Complete Time: 10:27 kb 01/06 08:39 Order name: RAD; Complete Time: 15:05 EDMS Administered Medications: 09:11 Drug: NS 0.9% 1000 ml Route: IV; Rate: 1000 ml; Site: right antecubital; ch 09:45 Follow up: IV Status: Completed infusion; IV Intake: 1000ml ch 09:52 CANCELLED (Other Intervention Used): NS 0.9% with KCl 40 mEq/L 1000 ml IV at 250 ml/hr kb continuous 10:05 Drug: Zofran 4 mg Route: IVP; Site: right antecubital; ss 12:50 Follow up: Response: No adverse reaction ch 10:08 Drug: NS 0.9% 1000 ml Route: IV; Rate: 75 ml/hr; Site: right antecubital; ss 13:29 Follow up: IV Status: Infusion continued upon admission; IV Intake: 300ml ch 10:10 Drug: [place] 5 mg-325 mg 1 tabs Route: PO; ss 13:26 Follow up: Response: No adverse reaction; Marked relief of symptoms ch 10:15 Drug: Potassium Chloride 20 mEq Route: IV; Rate: calculated rate; Site: right ss antecubital; 13:27 Follow up: IV Status: Completed infusion; IV Intake: 100ml ch 10:17 Drug: Potassium Chloride 40 mEq Route: PO; ss 13:28 Follow up: Response: No adverse reaction; No change in condition ch 13:05 Drug: Gabapentin 600 mg Route: PO; ch 16:30 Follow up: Response: No adverse reaction ch 13:05 Drug: morphine 2 mg Route: IVP; Site: right antecubital; ch 16:29 Follow up: Response: No adverse reaction ch 13:15 Drug: Potassium Phosphate 15 mmol Route: IV; Rate: calculated rate; Site: right ch antecubital; 13:28 Follow up: IV Status: Infusion continued upon admission ch 17:20 Drug: Gabapentin 300 mg Route: PO; ch 19:00 Follow up: Response: No adverse reaction ch 17:20 Drug: Atenolol 100 mg Route: PO; ch 19:20 Follow up: Response: No adverse reaction ss Disposition: 01/07 06:18 Co-signature as Attending Physician, Felix Lopez MD I agree with the assessment and isacc plan of care. Disposition: 01/05/19 10:34 Hospitalization ordered by Narcisa Vasquez for Inpatient Admission. Preliminary diagnosis are Hyponatremia, Hypokalemia, Weakness, Influenza due to identified novel influenza A virus. - Bed requested for Intensive Care Unit. - Status is Inpatient Admission. bp - Condition is Stable. - Problem is new. - Symptoms are unchanged. UTI on Admission? No Signatures: Dispatcher [employer] EDMS Rosemary Cardenas, GROUND LAYER-C GROUND LAYER-Ckb Marcela Duffy Marcela Chavis, Sun [place] RN, ch, RN RN aj1 Felix Lopez MD MD cha Solis, Maria ms Nancy, Deisi, JOSE RN ss Larry Cai, JOSE RN bp Corrections: (The following items were deleted from the chart) 01/05 09:52 09:50 NS 0.9% with KCl 40 mEq/L 1000 ml IV at 250 ml/hr continuous ordered. kb kb 13:39 10:34 Hospitalization Ordered by Narcisa Vasquez MD for Inpatient Admission. Preliminary ms diagnosis is Hyponatremia; Hypokalemia; Weakness; Influenza due to identified novel influenza A virus. Bed requested for Telemetry/MedSurg (Inpatient). Status is Inpatient Admission. Condition is Stable. Problem is new. Symptoms are unchanged. UTI on Admission? No. kb 01/06 14:53 01/05 13:39 01/05/2019 10:34 Hospitalization Ordered by Narcisa Vasquez MD for Inpatient bd Admission. Preliminary diagnosis is Hyponatremia; Hypokalemia; Weakness; Influenza due to identified novel influenza A virus. Bed requested for [facility] ER HOLD. Status is Inpatient Admission. Condition is Stable. Problem is new. Symptoms are unchanged. UTI on Admission? No. ms 01/06 16:34 14:53 01/05/2019 10:34 Hospitalization Ordered by Narcisa Vasquez MD for Inpatient bp Admission. Preliminary diagnosis is Hyponatremia; Hypokalemia; Weakness; Influenza due to identified novel influenza A virus. Bed requested for Intensive Care Unit. Status is Inpatient Admission. Condition is Stable. Problem is new. Symptoms are unchanged. UTI on Admission? No. bd
[2019-01-05 10:36] LABS: Blood Morphology Comment NOT SEEN (NOT SEEN); Platelet Estimate ADEQ; Urine White Blood Cell Casts OK
[2019-01-05 11:09] LABS: Urine Blood 1+ (NEG); Urine Glucose NEGATIVE (NEG); Urine Protein 1+ (NEG); Urine Specific Gravity 1.015 (1.005-1.030)
--- NOTE | 2019-01-05 11:20 | RAD REPORT ---
EXAM DESCRIPTION: RAD - Chest Pa And Lat (2 Views) - 01/05/2019 9:26 am CLINICAL HISTORY: Cough;Congestion Chest pain. COMPARISON: CHEST SINGLE VIEW dated 09/03/2009; CHEST PA AND LAT 2 VIEW dated 11/17/1997 FINDINGS: A few linear areas of subsegmental atelectasis are present in the left lower lobe. The dimas gs are clear of acute infiltrate. The heart is upper limit normal size. No displaced fractures. Cervi brian hardware plate is present.
[2019-01-05] MEDS ORDERED: POTASSIUM PHOS IN 0.9 % NACL 15 MMOL/250 ML BAG IV ONE (13:00)
[2019-01-05] MEDS ORDERED: GABAPENTIN 300 MG CAP ONE ×2 (13:10→17:20)
[2019-01-05] MEDS ORDERED: MORPHINE 2 MG/ML SYR ONE ×2 (13:10→13:17)
--- NOTE | 2019-01-05 13:17 | P.HP ---
Certification for Inpatient Patient admitted to: Inpatient With expected LOS: >2 Midnights Patient will require the following post-hospital care: None Practitioner: I am a practitioner with admitting privileges, knowledge of patient current condition, hospital course, and medical plan of care. Services: Services provided to patient in accordance with Admission requirements found in Title 42 Section 412.3 of the Code of Federal Regulations Patient History Date of Service: 01/05/19 Primary Care Provider: Dr. Bernard History of Present Illness: This is a 63-year-old woman with past medical history of hypertension, hypothyroidism, chronic back pain who presented to the ED complaining of having some body aches generalized weakness and flu-like symptoms. Patient stated that on she went to her primary care doctor's office and was diagnosed with influenza A and was prescribed Tamiflu along with a antibiotics. Patient stated that she however had no resolution of her symptoms and thus decided to come to the ER for further workup. Patient stated that she has not been having adequate oral intake for the past couple of days as well. Patient denied having any fever chills nausea vomiting abdominal tenderness stroke is of breath or any chest pain at this time. In the ER patient was found to have lab work which was consistent with hyponatremia and hypokalemia in dehydration and thus was admitted for further workup. Calcitonin and lactic acid were negative Allergies codeine Allergy (Verified 01/05/19 11:24) Hives/Rash iodine Allergy (Verified 01/05/19 11:24) Hives/Rash Home medications list reviewed: Yes - Past Medical/Surgical History Has patient received pneumonia vaccine in the past: No Diabetic: No -: Hypertension -: Hyperthyroid - Family History Family History: Reviewed- Non-Contributory - Social History Smoking Status: Never smoker Smoking therapy provided: No Patient receptive to therapy: No Alcohol use: No CD- Drugs: No Caffeine use: No Place of Residence: Home Review of Systems 10-point ROS is otherwise unremarkable Physical Examination - Physical Exam General: Alert, In no apparent distress, Mild distress HEENT: Atraumatic, PERRLA, Mucous membr. moist/pink, EOMI, Sclerae nonicteric Neck: Supple, 2+ carotid pulse no bruit, No LAD, Without JVD or thyroid abnormality Respiratory: Normal air movement, Expiratory wheezes, Inspiratory wheezes Cardiovascular: Regular rate/rhythm, Normal S1 S2 Gastrointestinal: Normal bowel sounds, No tenderness Musculoskeletal: No tenderness Integumentary: No rashes Neurological: Normal gait, Normal speech, Normal strength at 5/5 x4 extr, Normal tone, Normal affect Lymphatics: No axilla or inguinal lymphadenopathy - Studies Laboratory Data (last 24 hrs) 01/05/19 10:15: Phosphorus 1.7 L 01/05/19 09:00: Sodium 113 L*, Potassium 2.6 L*, BUN 6 L, Creatinine 0.61, Glucose 133 H 01/05/19 09:00: WBC 19.8 H, Hgb 13.3, Hct 37.0, Plt Count 367 Assessment and Plan - Problems (Diagnosis) (1) Hyponatremia Current Visit: Yes Status: Acute Plan: Hyponatremia along with have became the me most likely secondary to dehydration. -Will admit the patient in the ICU and start patient on IV fluids NS at 100 mL an hr -will consult Nephrology for hyponatremia -will monitor closely - (2) Influenza A Current Visit: Yes Status: Acute Plan: Patient with recent diagnosis of influenza A infection -has finished 3 days of Tamiflu. Will continue with 2 more days here in the hospital (3) Pneumonia Current Visit: Yes Status: Suspected Plan: Suspected possible post influenza pneumonia -chest x-ray with questionable pneumonia -will go ahead and start patient on Zithromax and Rocephin until sputum cultures negative -will monitor patient closely here in the hospital Qualifiers: Pneumonia type: due to unspecified organism Laterality: unspecified laterality Lung location: unspecified part of lung Qualified Code(s): J18.9 - Pneumonia, unspecified organism (4) Hypertension Current Visit: Yes Status: Chronic Plan: Will restart home med at Qualifiers: Hypertension type: essential hypertension Qualified Code(s): I10 - Essential (primary) hypertension (5) Hypothyroid Current Visit: Yes Status: Chronic Qualifiers: Hypothyroidism type: acquired Qualified Code(s): E03.9 - Hypothyroidism, unspecified (6) Chronic back pain Current Visit: Yes Status: Chronic Qualifiers: Back pain location: low back pain Back pain laterality: unspecified Sciatica presence: unspecified whether sciatica present Qualified Code(s): M54.5 - Low back pain; G89.29 - Other chronic pain - Plan Admit patient to the ICU for hypernatremic close monitoring of the neurological status. Will consult nephrology at this time. Will treat patient presumably for possible pneumonia until cultures return. Discharge Plan: Home Plan to discharge in: 48 Hours - Advance Directives Does patient have a Living Will: No Does patient have a Durable POA for Healthcare: No - Code Status/Comfort Care Code Status Assessed: Yes Critical Care: No
[2019-01-05] MEDS ORDERED: NA CHLORIDE 0.9% 500 ML IV SCH (14:00)
[2019-01-05] MEDS ORDERED: ONDANSETRON 4 MG/2 ML VIAL IV PRN (14:31)
[2019-01-05] MEDS: CEFTRIAXONE/SWI 1gm 1 GM/10 ML SYR IVP SCH (15:00)
[2019-01-05 15:24] VITALS: BMI 34.9
[2019-01-05] MEDS: ENOXAPARIN 40 MG/0.4 ML SQ SCH (15:25)
[2019-01-05] MEDS: NA CHLORIDE 0.9% 1,000 ML IV SCH ×2 (15:28→22:00)
[2019-01-05] MEDS: AZITHROMYCIN IV 500 MG in NA CHLORIDE 0.9% 250 ML IVPB SCH (15:29)
[2019-01-05] MEDS ORDERED: CEFTRIAXONE 1000 MG/VIAL ONE (16:06)
[2019-01-05] MEDS ORDERED: ENOXAPARIN 100 MG/ML SYR SQ ONE ×2 (16:07→16:20)
[2019-01-05] MEDS ORDERED: HYDROCODONE/APAP 5/325 MG TAB PO ONE ×2 (16:33→17:00)
[2019-01-05] MEDS ORDERED: ATENOLOL 50 MG TAB ONE (17:20)
[2019-01-05 17:56] LABS: BUN Blood Urea Nitrogen 6 mg/dL (7-18); Bicarbonate 27 mmol/L (21-32); Glucose Level 126 mg/dL (74-106); Magnesium 1.9 mg/dL (1.8-2.4); Phosphorus 2.1 mg/dL (2.5-4.9); Potassium 3.5 mmol/L (3.5-5.1)
--- NOTE | 2019-01-05 18:09 | CON ---
Date of Consultation: 01/05/2019 Reason For Consultation: Hyponatremia, hypokalemia, hypomagnesemia, hypophosphatemia. History Of Present Illness: This is a pleasant 63-year-old female with significant past medical hist ory of hypertension, neuropathy, and mitral valve prolapse. The patient was in her usual state of he alth, was diagnosed by Dr. Guerrero, primary care, of flu A, started on treatment. The p atient did not feel well, has nausea without any vomiting, started feeling weak. For that reason, re ported to the emergency room. In the emergency room, a primary workup showed hypophosphatemia, hypok alemia, and hyponatremia, sodium down to 113. For that reason, we have been consulted the patient de nied taking any nonsteroidal. The patient denied change in her medication except the treatment for t he flu. The patient had some seizure without any chills. The patient at home on Neurontin. The patient was started on IV fluid. Past Medical History: 1.Hypertension. 2.Mitral valve prolapse. 3.Neuropathy, on Neurontin. Family History: Positive for hypertension. Social History: Denies smoking. Denies drinking. Denies drug abuse. Allergies: CODEINE AND IODINE. Medications: Current medications in the hospital include KCl, normal saline at 75 with Lovenox 40. Review of Systems: Head and Neck: No red eye. No ear pain. GI: She has nausea. No vomiting. : No polyuria. No dysuria. No hematuria. [employer]: No vaginal discharge. Respiratory: She has cough. Cardiovascular: No chest pain. Endocrine: No polydipsia. Skin: No rash. Neuro: She has neuropathy. Musculoskeletal: Fatigue. Physical Examination: Vital Signs: When I saw the patient, blood pressure 151/70, pulse of 60, afebrile. Chest: Clear to auscultation. Heart: S1, S2 regular. Abdomen: Soft, nontender. Extremities: No edema. Laboratory Data: Sodium 113, potassium 2.6, chloride 72, bicarb 29, BUN 6, creatinine 0.6, glucose 1 33, calcium 8.4, phosphorus 1.7. WBC 19.8, H and H 13.3/37, platelets 367. Assessment And Plan: 1.Hyponatremia, mostly depletional. No neurologic symptoms. I again agree with current hydration. I will bolus the patient with 500 of normal saline. We will repeat the labs in 3 hours from now and we will follow up. I going to go ahead and get TSH and cortisol with urine electrolyte. 2.Hypokalemia and hypophosphatemia. The patient started on supplement. I am going to check for mag nesium level. 3.Hypertension, currently controlled. Hold blood pressure medication for the time being. 4.Flu as by primary. MAMI/MARY Voice ID: [id number] Report ID: [id number]
[2019-01-05 18:30] LABS: Sodium Level 116 mmol/L (136-145)
[2019-01-05] MEDS: TRAMADOL HCL 50 MG TAB PO PRN (20:08)
[2019-01-05] MEDS ORDERED: ALPRAZOLAM 1 MG TABLET ONE (20:15)
[2019-01-05] MEDS ORDERED: TRAMADOL HCL 50 MG TAB ONE (20:16)
[2019-01-05] MEDS: ACYCLOVIR 400 MG TABLET PO SCH (20:42)
[2019-01-05] MEDS: GABAPENTIN 300 MG CAP PO SCH ×2 (20:42)
[2019-01-05] MEDS ORDERED: ACYCLOVIR 400 MG TABLET ONE (20:51)
[2019-01-05] MEDS ORDERED: ALBUTEROL INHALER 60 PUFF/8 GM IH PRN (20:58)
[2019-01-05] MEDS: GUAIFENESIN 600 MG SA TAB PO SCH (21:00)
[2019-01-05] MEDS: ALPRAZOLAM 1 MG TABLET PO PRN (21:47)
[2019-01-05 22:10] LABS: Urine Appearance CLEAR; Urine Bilirubin NEGATIVE (NEG); Urine Blood 1+ (NEG); Urine Color YELLOW; Urine Glucose 1+ (NEG); Urine Protein TRACE (NEG); Urine Specific Gravity 1.015 (1.005-1.030); Urine Urobilinogen 0.2 mg/dL (0.2-1.0); Urine pH 6.5 (5.0-7.0)
[2019-01-05 22:14] LABS: Urine Microscopic Reflex ORDER UMIC
[2019-01-05] MEDS ORDERED: FAMOTIDINE 20 MG TAB PO SCH (23:00)
[2019-01-05] MEDS ORDERED: RANITIDINE 150 MG TABLET PO SCH (23:00)
[2019-01-06 00:22] LABS: Urine Bacteria <20 /HPF (<20); Urine Culture Reflex Order NOT NEEDED; Urine RBC 20-50 /HPF (NONE SEEN)
[2019-01-06] MEDS ORDERED: NA CHLORIDE 0.9% 1,000 ML ONE ×2 (01:02→09:24)
[2019-01-06] MEDS: TRAMADOL HCL 50 MG TAB PO PRN ×2 (02:00→10:47)
[2019-01-06] MEDS ORDERED: TRAMADOL HCL 50 MG TAB ONE ×2 (02:02→10:50)
[2019-01-06] MEDS ORDERED: NITROGLYCERIN 0.4 MG/TAB SL ONE (04:47)
[2019-01-06 05:37] LABS: Absolute Lymphocytes (CBC) 1.5 K/uL (0.7-4.9); Absolute Monocytes 2.2 K/uL (0.1-1.3); Absolute Neutrophil 15.1 K/uL (1.8-8.0); Basophils % 0.2 % (0-1.3); Eosinophils % 0.9 % (0-4.4); Hematocrit 33.3 % (36.0-45.0); Lymphocytes % 7.8 % (15.3-44.8); MPV 7.7 fL (7.6-11.3); Monocytes % 11.4 % (3.3-12.3); RBC Red Blood Cell Count 3.74 M/uL (3.86-4.86)
[2019-01-06 06:01] LABS: ALT/SGPT 33 U/L (12-78); AST/SGOT 42 U/L (15-37); Albumin 2.9 g/dL (3.4-5.0); Alkaline Phosphatase 99 U/L (45-117); BUN Blood Urea Nitrogen 4 mg/dL (7-18); Bicarbonate 29 mmol/L (21-32); Bilirubin Total 0.5 mg/dL (0.2-1.0); Glucose Level 102 mg/dL (74-106); Magnesium 1.9 mg/dL (1.8-2.4); Phosphorus 1.2 mg/dL (2.5-4.9); Potassium 3.7 mmol/L (3.5-5.1)
[2019-01-06 06:02] LABS: Sodium Level 119 mmol/L (136-145)
[2019-01-06] MEDS ORDERED: POTASSIUM PHOS IN 0.9 % NACL 15 MMOL/250 ML BAG IV ONE (06:41)
[2019-01-06] MEDS: NA CHLORIDE 0.9% 1,000 ML IV SCH ×3 (08:00→23:00)
--- NOTE | 2019-01-06 08:39 | RAD REPORT ---
EXAM DESCRIPTION: RAD - Chest Pa And Lat (2 Views) - 01/06/2019 7:43 am CLINICAL HISTORY: SOB Chest pain. COMPARISON: Chest Pa And Lat (2 Views) dated 01/05/2019; CHEST SINGLE VIEW dated 09/03/2009; CHEST PA AND LAT 2 VIEW dated 11/17/1997 FINDINGS: The lungs are clear. Trace bilateral pleural effusions are present. The heart is mildly en larged in size. No displaced fractures. Cervical hardware plate is present. IMPRESSION: Trace bilateral pleural effusions.
--- NOTE | 2019-01-06 08:39 | EKG ---
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
[2019-01-06] MEDS ORDERED: KCL 20 MEQ/100 mL IVPB 20 MEQ/100 ML BAG IV SCH (09:00)
[2019-01-06] MEDS: CEFTRIAXONE/SWI 1gm 1 GM/10 ML SYR IVP SCH (09:00)
[2019-01-06] MEDS: ASPIRIN EC 81 MG TAB PO SCH (09:00)
[2019-01-06] MEDS: GUAIFENESIN 600 MG SA TAB PO SCH ×2 (09:00→22:31)
[2019-01-06] MEDS: ENOXAPARIN 40 MG/0.4 ML SQ SCH (09:00)
[2019-01-06] MEDS: AZITHROMYCIN IV 500 MG in NA CHLORIDE 0.9% 250 ML IVPB SCH (09:00)
[2019-01-06] MEDS: GABAPENTIN 300 MG CAP PO SCH ×5 (09:00→22:32)
[2019-01-06] MEDS: FAMOTIDINE 20 MG TAB PO SCH ×2 (09:00→22:33)
[2019-01-06] MEDS: ACYCLOVIR 400 MG TABLET PO SCH ×3 (09:00→22:33)
[2019-01-06] MEDS ORDERED: ACYCLOVIR 400 MG TABLET ONE ×2 (09:23→15:44)
[2019-01-06] MEDS ORDERED: ASPIRIN EC 81 MG TAB PO ONE (09:23)
[2019-01-06] MEDS ORDERED: CEFTRIAXONE 1000 MG/VIAL ONE (09:23)
[2019-01-06] MEDS ORDERED: AZITHROMYCIN 500 MG INJ IVPB ONE (09:24)
[2019-01-06] MEDS ORDERED: FAMOTIDINE 20 MG TAB ONE (09:24)
[2019-01-06] MEDS ORDERED: NA CHLORIDE 0.9% 100 ML IV ONE (09:24)
[2019-01-06] MEDS ORDERED: ENOXAPARIN 40 MG/0.4 ML SQ ONE (09:25)
[2019-01-06] MEDS ORDERED: ALBUTEROL INHALER 60 PUFF/8 GM IH PRN (10:00)
[2019-01-06] MEDS: OSELTAMIVIR 75 MG CAP PO SCH ×2 (11:15→22:33)
[2019-01-06] MEDS ORDERED: OSELTAMIVIR 75 MG CAP ONE (12:19)
--- NOTE | 2019-01-06 13:36 | P.PN ---
Subjective Date of Service: 01/06/19 Primary Care Provider: Dr. Bernard Subjective: No C/O voiced, Tolerating diet, Improving, Doing well Review of Systems 10-point ROS is otherwise unremarkable Physical Examination - Vital Signs Temperature: 99 F Blood Pressure: 126/64 Pulse: 64 Respirations: 18 Pulse Ox (%): 95 - Physical Exam General: Alert, In no apparent distress HEENT: Atraumatic, PERRLA, EOMI Neck: Supple, JVD not distended Respiratory: Clear to auscultation bilaterally, Normal air movement Cardiovascular: Regular rate/rhythm, Normal S1 S2 Gastrointestinal: Normal bowel sounds, No tenderness Musculoskeletal: No tenderness Integumentary: No rashes Neurological: Normal speech, Normal tone, Normal affect Lymphatics: No axilla or inguinal lymphadenopathy - Studies Microbiology Data (last 24 hrs): 01/05/19 11:00 Blood - Blood Anaerobic Blood Culture - Final Medications List Reviewed: Yes Assessment And Plan - Current Problems (Diagnosis) (1) Hyponatremia Current Visit: Yes Status: Acute Plan: Hyponatremia along with have became the me most likely secondary to dehydration. -Currently on IV fluids NS at 100 mL an hr -Nephrology consulted. Appreciated Reccs -NA improved to 119 today -Will continue to monitor in ICU (2) Influenza A Current Visit: Yes Status: Acute Plan: Patient with recent diagnosis of influenza A infection -Tamiflu started 01/31 (3) Pneumonia Current Visit: Yes Status: Suspected Plan: Suspected possible post influenza pneumonia -chest x-ray with questionable pneumonia -patient on Zithromax and Rocephin until sputum cultures negative -will monitor patient closely here in the hospital Qualifiers: Pneumonia type: due to unspecified organism Laterality: unspecified laterality Lung location: unspecified part of lung Qualified Code(s): J18.9 - Pneumonia, unspecified organism (4) Hypertension Current Visit: Yes Status: Chronic Plan: Will restart home med at Qualifiers: Hypertension type: essential hypertension Qualified Code(s): I10 - Essential (primary) hypertension (5) Hypothyroid Current Visit: Yes Status: Chronic Qualifiers: Hypothyroidism type: acquired Qualified Code(s): E03.9 - Hypothyroidism, unspecified (6) Chronic back pain Current Visit: Yes Status: Chronic Qualifiers: Back pain location: low back pain Back pain laterality: unspecified Sciatica presence: unspecified whether sciatica present Qualified Code(s): M54.5 - Low back pain; G89.29 - Other chronic pain - Plan Pending Clinical Improvement. NA is improved to 119 today. Will continue with NS @100/hr and recheck Na. Will f.u on culture. Discharge Plan: Home Plan to discharge in: 72 Hours - Code Status/Comfort Care Code Status Assessed: Yes Critical Care: Yes
[2019-01-06] MEDS: VITAMIN E 400 IU CAP PO SCH ×2 (14:00→22:31)
[2019-01-06] MEDS: HYDRALAZINE HCL 25 MG TABLET PO SCH ×2 (14:00→22:30)
[2019-01-06] MEDS ORDERED: GABAPENTIN 300 MG CAP ONE (15:45)
[2019-01-06 16:30] LABS: BUN Blood Urea Nitrogen 4 mg/dL (7-18); Bicarbonate 28 mmol/L (21-32); Glucose Level 103 mg/dL (74-106); Potassium 3.5 mmol/L (3.5-5.1); Sodium Level 120 mmol/L (136-145)
[2019-01-06] MEDS ORDERED: GUAIFENESIN 1200 MG PO SCH (21:00)
[2019-01-06] MEDS: ATORVASTATIN 40 MG TAB PO SCH (22:31)
[2019-01-06] MEDS: CALCIUM CARB 500MG/VIT D 200 IU TAB PO SCH (22:33)
[2019-01-06] MEDS: BUPROPION HCL XL 150 MG TAB PO SCH (22:33)
[2019-01-06] MEDS: ALPRAZOLAM 1 MG TABLET PO PRN (22:43)
--- NOTE | 2019-01-07 02:19 | PN ---
Date of Progress Note: 01/06/2019 Chief Complaint: Severe hyponatremia, hypo-osmolar. The patient presented to the hospital because of generalized weakness. She was complaining of cough, fever and malaise. She was found to have severe hyponatremia. Sodium level was 113 on January 05. Electrolytes were evaluated and she was found to have hypokalemia, potassium of 2.6, chloride 92, bicarbonate 29, BUN 6, creatinine 0.61. She was found to have hypophosphatemia, phosphorus 1.7 and magnesium was 1.9. The patient was started on IV fluids with normal saline for hydration. The patie nt had multiple electrolyte abnormalities including severe hyponatremia. She was found to have influ osiris and was started on influenza treatment. She has history of hypertension, mitral valve prolapse, peripheral neuropathy on Neurontin. She was found to have depletional hyponatremia and received rep lacement with electrolytes, was treated for hypokalemia and hypophosphatemia. Potassium level has im proved over last 24 hours, sodium level gradually improved to 119, and subsequently this afternoon so dium level is 120. Review of Systems: The patient is complaining of generalized weakness, malaise. Denies nausea, vomiting. Denies headac he, vision changes. Denies tremor or seizure. Physical Examination: Lungs: Clear to auscultation bilaterally. Heart: S1, S2. Abdomen: Soft, benign. Extremities: Minimal edema in both ankles. Laboratory Data: Blood work shows sodium 120, potassium 3.5, chloride 86, CO2 of 28, BUN 4, creatini ne 0.48, calcium 7.8, phosphorus 1.2, calcium 7.5, magnesium 1.9, albumin 2.9, total protein 7.0. Ur inalysis showed specific gravity 1.015, ketones 1+, blood 1+, rbc's from 20-50, wbc's less than 5. U rine protein 1+. Urine random potassium 19, urine osmolality 322. Impression And Plan: 1.Depletional hyponatremia associated with multiple electrolyte abnormalities. Monitor potassium le linda, magnesium and phosphorus. Continue replacement. Continue IV hydration with normal saline. Mon itor electrolytes closely. Address treatment with IV fluids accordingly. 2.Hypertension. Blood pressure control, avoid HCTZ. 3.Generalized weakness, malaise. Avoid nonsteroidal anti-inflammatory medication. EB/MODL Voice ID: [id number] Report ID: [id number]
[2019-01-07 05:21] LABS: Absolute Lymphocytes (CBC) 1.6 K/uL (0.7-4.9); Absolute Monocytes 2.6 K/uL (0.1-1.3); Absolute Neutrophil 14.6 K/uL (1.8-8.0); Basophils % 0.3 % (0-1.3); Hematocrit 31.9 % (36.0-45.0); Lymphocytes % 8.5 % (15.3-44.8); MPV 7.7 fL (7.6-11.3); Monocytes % 13.3 % (3.3-12.3); RBC Red Blood Cell Count 3.54 M/uL (3.86-4.86)
[2019-01-07 05:40] LABS: ALT/SGPT 30 U/L (12-78); AST/SGOT 31 U/L (15-37); Albumin 2.7 g/dL (3.4-5.0); Alkaline Phosphatase 97 U/L (45-117); BUN Blood Urea Nitrogen 4 mg/dL (7-18); Bicarbonate 28 mmol/L (21-32); Bilirubin Total 0.3 mg/dL (0.2-1.0); Glucose Level 102 mg/dL (74-106); Magnesium 2.2 mg/dL (1.8-2.4); Phosphorus 1.6 mg/dL (2.5-4.9); Potassium 3.3 mmol/L (3.5-5.1); Protein, Total 6.5 g/dL (6.4-8.2); Sodium Level 126 mmol/L (136-145)
[2019-01-07] MEDS ORDERED: POTASSIUM CL SA 10 MEQ TAB PO ONE ×2 (06:25→10:31)
[2019-01-07] MEDS: LEVOTHYROXINE SOD 0.025 MG TAB PO SCH (06:55)
[2019-01-07] MEDS: LEVOTHYROXINE SOD 0.112 MG TAB PO SCH (06:55)
[2019-01-07] MEDS ORDERED: POTASSIUM PHOS IN 0.9 % NACL 15 MMOL/250 ML BAG IV ONE (08:00)
[2019-01-07] MEDS ORDERED: ASPIRIN 81 MG CHEWABLE TABLET PO SCH (09:00)
[2019-01-07] MEDS ORDERED: POTASSIUM CL 40 MEQ in NA CHLORIDE 0.9% 500 ML IV SCH (10:00)
[2019-01-07] MEDS: CEFTRIAXONE/SWI 1gm 1 GM/10 ML SYR IVP SCH (10:01)
[2019-01-07] MEDS: AZITHROMYCIN IV 500 MG in NA CHLORIDE 0.9% 250 ML IVPB SCH (10:01)
[2019-01-07] MEDS: ENOXAPARIN 40 MG/0.4 ML SQ SCH (10:02)
[2019-01-07] MEDS: LORATADINE 10 MG TAB PO SCH (10:03)
[2019-01-07] MEDS: ATENOLOL 50 MG TAB PO SCH (10:03)
[2019-01-07] MEDS: ASPIRIN EC 81 MG TAB PO SCH (10:03)
[2019-01-07] MEDS: BUPROPION HCL XL 150 MG TAB PO SCH ×2 (10:04→21:06)
[2019-01-07] MEDS: OSELTAMIVIR 75 MG CAP PO SCH ×2 (10:05→21:06)
[2019-01-07] MEDS: FAMOTIDINE 20 MG TAB PO SCH ×2 (10:05→21:06)
[2019-01-07] MEDS: HYDRALAZINE HCL 25 MG TABLET PO SCH ×3 (10:05→21:07)
[2019-01-07] MEDS: GUAIFENESIN 600 MG SA TAB PO SCH ×2 (10:06→21:06)
[2019-01-07] MEDS: GABAPENTIN 300 MG CAP PO SCH ×5 (10:06→21:06)
[2019-01-07] MEDS: VITAMIN E 400 IU CAP PO SCH ×3 (10:07→21:06)
[2019-01-07] MEDS: ACYCLOVIR 400 MG TABLET PO SCH ×3 (10:07→21:06)
[2019-01-07] MEDS: CALCIUM CARB 500MG/VIT D 200 IU TAB PO SCH ×2 (10:08→21:06)
[2019-01-07] MEDS: DOCOSAHEXANOIC AC/EPA 1000 MG PO SCH (10:08)
[2019-01-07] MEDS: NA CHLORIDE 0.9% 1,000 ML IV SCH (11:12)
[2019-01-07] MEDS ORDERED: NA CHLORIDE 0.9% 1,000 ML IV SCH (14:00)
[2019-01-07] MEDS ORDERED: HYDRALAZINE HCL 25 MG TABLET PO SCH (14:00)
[2019-01-07] MEDS ORDERED: HOME MED 1 EA UNK (Hydralazine Hcl [Apresoline] 25 MG) PO SCH (14:24)
--- NOTE | 2019-01-07 16:40 | P.PN ---
Subjective Date of Service: 01/07/19 Primary Care Provider: Dr. Bernard Pt seen and examined at bedside. Chart Reviewed. Case DW with Cardiology. On round pt was doing well no c/o overnight. However around 1425 received a call from Floor Nurse regarding pt having chest pain. Orders given to Get STAT EKG, Troponin x2 and to notify cardiology. Vitals at that time with BP 184/86. Ordered given for hydralazine PO, Losartan., Gabapentin PPX at that time. EKG with normal sinus rhythm. Troponin x elevated to 1.6. Got call again 1611 regarding elevated Troponin notified to call Dr Villa and to continue monitoring patient on Tele and place pt on oxygen. Asked for vitals at that time , Nurse unable to provide with vitals and stated will call back with vitals. No meds ppx due to last vitals in chart Record with low BP and HR. Called back to the nurse at 1638 to ask for vitals. Still no Vitals. Went up to see the patient at that time again. Review of Systems 10-point ROS is otherwise unremarkable Physical Examination - Vital Signs Temperature: 97.6 F Blood Pressure: 113/66 Pulse: 61 Respirations: 18 Pulse Ox (%): 97 - Physical Exam General: Alert, In no apparent distress HEENT: Atraumatic, PERRLA, EOMI Neck: Supple, JVD not distended Respiratory: Clear to auscultation bilaterally, Normal air movement Cardiovascular: Regular rate/rhythm, Normal S1 S2 Gastrointestinal: Normal bowel sounds, No tenderness Musculoskeletal: No tenderness Integumentary: No rashes Neurological: Normal speech, Normal tone, Normal affect Lymphatics: No axilla or inguinal lymphadenopathy - Studies Medications List Reviewed: Yes Assessment And Plan - Current Problems (Diagnosis) (1) NSTEMI (non-ST elevated myocardial infarction) Current Visit: Yes Status: Acute Plan: Pt c/o Chest Pain with Normal Sinus EKG and Elevated troponin -Cardiology consulted. Appreciated Reccs -Cardiac Cath denzel AM -ACS meds - BB, Lipitor, oxygen -Given SL nitrox1 (2) Hyponatremia Current Visit: Yes Status: Acute Plan: Hyponatremia along with have became the me most likely secondary to dehydration. -Currently on IV fluids NS at 100 mL an hr -Nephrology consulted. Appreciated Reccs -NA improved to 126 today (3) Influenza A Current Visit: Yes Status: Acute Plan: Patient with recent diagnosis of influenza A infection -Tamiflu started 03/02 (4) Pneumonia Current Visit: Yes Status: Suspected Plan: Suspected possible post influenza pneumonia -chest x-ray with questionable pneumonia -patient on Zithromax and Rocephin until sputum cultures negative -will monitor patient closely here in the hospital Qualifiers: Pneumonia type: due to unspecified organism Laterality: unspecified laterality Lung location: unspecified part of lung Qualified Code(s): J18.9 - Pneumonia, unspecified organism (5) Hypertension Current Visit: Yes Status: Chronic Plan: Will restart home med Qualifiers: Hypertension type: essential hypertension Qualified Code(s): I10 - Essential (primary) hypertension (6) Hypothyroid Current Visit: Yes Status: Chronic Qualifiers: Hypothyroidism type: acquired Qualified Code(s): E03.9 - Hypothyroidism, unspecified (7) Chronic back pain Current Visit: Yes Status: Chronic Qualifiers: Back pain location: low back pain Back pain laterality: unspecified Sciatica presence: unspecified whether sciatica present Qualified Code(s): M54.5 - Low back pain; G89.29 - Other chronic pain - Plan Pending Clinical Improvement. NA is improved to 119 today. Will continue with NS @100/hr and recheck Na. Will f.u on culture.
[2019-01-07] MEDS ORDERED: NITROGLYCERIN 0.4 MG/TAB SL PRN (16:47)
[2019-01-07] MEDS ORDERED: predniSONE 20 MG TAB PO ONE (17:39)
--- NOTE | 2019-01-07 18:35 | PN ---
Date of Progress Note: 01/07/2019 Subjective: The patient was admitted with symptomatic hyponatremia, flu. The patient status post hy ponatremia secondary to hydrochlorothiazide, dehydration. Physical Examination: Vital Signs: When I saw the patient, blood pressure of 100/60, pulse of 88. Chest: Clear to auscultation. Heart: S1, S2. Regular. Abdomen: Soft, nontender. Extremity: No edema. Laboratory Data: WBC 19.2, H and H 11.3/31.9, platelets 338. Sodium 126, potassium 3.3, bicarb 28, BUN 4, creatinine 0.4, calcium 7.8, phosphorus 1.6. Current Medication: Normal saline at 100 per hour, Tamiflu, acyclovir, Z-Kaden, ceftriaxone, loratadin e, atenolol, hydralazine 50 t.i.d., gabapentin, Pepcid, Zofran, tramadol. Assessment And Plan: 1.Hyponatremia, drug-induced secondary to hydrochlorothiazide superimposed with dehydration supporte d with urine electrolyte recover, appropriate trend on the sodium. I am going to continue IV fluid. We will decrease it to 50 per hour. We will continue to monitor the patient. 2.Hypertension, controlled, currently on the lower side. Decrease hydralazine to 25 t.i.d. Keep av oiding hydrochlorothiazide. 3.Flu. We will follow up with the primary. Continue current antibiotic. 4.Hypokalemia, hypophosphatemia. We will supplement. SOIF Voice ID: [id number] Report ID: [id number]
--- NOTE | 2019-01-07 19:05 | CON ---
A 63-year-old woman. Chief Complaint: Chest pain. History Of Present Illness: Ms. Schilling has been having chest pain like this off and on for 6 months. She reports a very remotely she might have had a heart attack. She was told there was a scar on a nuclear medicine image of the heart. She never had a heart catheterization or stent or bypass surger y. She has never used tobacco. She is originally in the hospital because of influenza wi th dehydration for 3 days here. She was profoundly hyponatremic and hypokalemic, now those are much better. Medications: Outpatient medications have been gabapentin, atenolol, hydralazine, vitamin E, ranitidi ne, losartan, hydrochlorothiazide, Claritin, levothyroxine, guaifenesin, furosemide, fluticasone, EPA fish oil, calcium carbonate, bupropion, atorvastatin, aspirin, alprazolam, and albuterol. Allergies: SHE IS ALLERGIC TO CODEINE AND IODINE. SHE WILL BE PRETREATED BEFORE SHE UNDERGOES ANY CARDIAC CATH PROCEDURE. TODAY WHILE SHE COMPLAINED O F CHEST PAIN, AN EKG WAS DONE THAT WAS NORMAL. HER CHEST PAIN HAS NOW GONE. THE TROPONIN WAS DRAWN AND IT IS 1.61 CONSISTENT WITH PROBABLY MYOCARDIAL NECROSIS THAT OCCURRED SEVERAL DAYS AGO NOT DURING THE CHEST PAIN. Physical Examination: Vital Signs: 5 feet 4 inches, 203 pounds. HEENT: Normal. Lungs: Clear. Cardiac Exam: Normal. Abdomen: Soft. Extremities: Normal distal pulses. Social History: She uses no tobacco, alcohol, or illegal drugs. Impression: The patient has acute coronary syndrome. I think we should give prednisone tonight, [place] u-Medrol before the cath, do a left heart catheterization, possible stent tomorrow. The patient seem s to understand the procedure, potential benefits, indications, risks, and agrees to proceed. PALAK/MARY Voice ID: [id number] Report ID: [id number]
[2019-01-07] MEDS ORDERED: HOME MED 1 EA UNK (Hydralazine Hcl [Apresoline] 50 MG) PO SCH (21:00)
[2019-01-07] MEDS: ATORVASTATIN 40 MG TAB PO SCH (21:07)
[2019-01-08 04:17] LABS: Absolute Lymphocytes (CBC) 1.2 K/uL (0.7-4.9); Absolute Monocytes 1.8 K/uL (0.1-1.3); Absolute Neutrophil 16.5 K/uL (1.8-8.0); Basophils % 0.2 % (0-1.3); Eosinophils % 0.1 % (0-4.4); Hematocrit 32.4 % (36.0-45.0); Lymphocytes % 6.4 % (15.3-44.8); MPV 7.6 fL (7.6-11.3); RBC Red Blood Cell Count 3.55 M/uL (3.86-4.86)
[2019-01-08 04:36] LABS: ALT/SGPT 52 U/L (12-78); AST/SGOT 54 U/L (15-37); Albumin 2.7 g/dL (3.4-5.0); Alkaline Phosphatase 129 U/L (45-117); BUN Blood Urea Nitrogen 3 mg/dL (7-18); Bicarbonate 30 mmol/L (21-32); Bilirubin Total 0.3 mg/dL (0.2-1.0); Glucose Level 129 mg/dL (74-106); Magnesium 2.4 mg/dL (1.8-2.4); Phosphorus 1.7 mg/dL (2.5-4.9); Potassium 4.1 mmol/L (3.5-5.1); Sodium Level 134 mmol/L (136-145)
[2019-01-08] MEDS ORDERED: POTASS/SODIUM PHOSPHATE 1 PKT POWD.PACK PO SCH (05:00)
[2019-01-08] MEDS: LEVOTHYROXINE SOD 0.112 MG TAB PO SCH (05:48)
[2019-01-08] MEDS: LEVOTHYROXINE SOD 0.025 MG TAB PO SCH (05:48)
[2019-01-08] MEDS: ATENOLOL 50 MG TAB PO SCH (06:17)
[2019-01-08] MEDS ORDERED: LIDOCAINE 1% MPF 30 ML VIAL ONE (06:46)
[2019-01-08] MEDS ORDERED: HEPA 1000U/500MLS 2,000 UNIT/1,000 ML BAG IV ONE (06:46)
[2019-01-08] MEDS ORDERED: HEPARIN 5000 UNIT/ML 1 ML VIAL ONE (07:28)
[2019-01-08] MEDS ORDERED: METHYLPREDNISOLONE 125 MG INJ ONE (07:28)
[2019-01-08] MEDS ORDERED: MIDAZOLAM HCL 2 MG/2 ML INJ ONE (07:29)
[2019-01-08] MEDS ORDERED: NICARDIPINE HCL 25 MG/10 ML IV ONE (07:29)
[2019-01-08] MEDS ORDERED: ATROPINE SULF 1 MG/10 ML SYR IV ONE (07:29)
[2019-01-08] MEDS ORDERED: NITROGLYCERIN 100 MCG/ML SYR (for cath lab use only) IV ONE (07:29)
[2019-01-08] MEDS ORDERED: NA CHLORIDE 0.9% 0 ML ONE (07:29)
[2019-01-08] MEDS ORDERED: FENTANYL CITR 100 MCG/2 ML ONE (07:29)
[2019-01-08] MEDS ORDERED: NA CHLORIDE 0.9% 500 ML ONE (07:30)
[2019-01-08] MEDS: ENOXAPARIN 40 MG/0.4 ML SQ SCH (09:00)
[2019-01-08] MEDS: DOCOSAHEXANOIC AC/EPA 1000 MG PO SCH (10:04)
[2019-01-08] MEDS: GUAIFENESIN 600 MG SA TAB PO SCH ×2 (10:05→20:30)
[2019-01-08] MEDS: LORATADINE 10 MG TAB PO SCH (10:05)
[2019-01-08] MEDS: ASPIRIN EC 81 MG TAB PO SCH (10:05)
[2019-01-08] MEDS: POTASS/SODIUM PHOSPHATE 1 PKT POWD.PACK PO SCH ×3 (10:06→13:00)
[2019-01-08] MEDS: GABAPENTIN 300 MG CAP PO SCH ×5 (10:06→20:31)
[2019-01-08] MEDS: LOSARTAN POTASSIUM 50 MG TABLET PO SCH (10:06)
[2019-01-08] MEDS: FAMOTIDINE 20 MG TAB PO SCH ×2 (10:06→20:31)
[2019-01-08] MEDS: HYDRALAZINE HCL 25 MG TABLET PO SCH ×3 (10:06→20:31)
[2019-01-08] MEDS: BUPROPION HCL XL 150 MG TAB PO SCH ×2 (10:07→20:30)
[2019-01-08] MEDS: CEFTRIAXONE/SWI 1gm 1 GM/10 ML SYR IVP SCH (10:08)
[2019-01-08] MEDS: CALCIUM CARB 500MG/VIT D 200 IU TAB PO SCH ×2 (10:08→20:31)
[2019-01-08] MEDS: ACYCLOVIR 400 MG TABLET PO SCH ×3 (10:09→20:31)
[2019-01-08] MEDS: VITAMIN E 400 IU CAP PO SCH ×3 (10:09→20:30)
[2019-01-08] MEDS: AZITHROMYCIN IV 500 MG in NA CHLORIDE 0.9% 250 ML IVPB SCH (10:52)
--- NOTE | 2019-01-08 14:59 | P.PN ---
Subjective Date of Service: 01/08/19 Primary Care Provider: Dr. Bernard Pt seen and examined at bedside. Chart Reviewed. Case DW with Cardiology. On round pt was doing well no c/o overnight. S.p Cardiac Cath now. No intervention at this time. No significant CAD. Review of Systems 10-point ROS is otherwise unremarkable Physical Examination - Vital Signs Temperature: 97.8 F Blood Pressure: 137/69 Pulse: 63 Respirations: 18 Pulse Ox (%): 92 - Physical Exam General: Alert, In no apparent distress HEENT: Atraumatic, PERRLA, EOMI Neck: Supple, JVD not distended Respiratory: Clear to auscultation bilaterally, Normal air movement Cardiovascular: Regular rate/rhythm, Normal S1 S2 Gastrointestinal: Normal bowel sounds, No tenderness Musculoskeletal: No tenderness Integumentary: No rashes Neurological: Normal speech, Normal tone, Normal affect Lymphatics: No axilla or inguinal lymphadenopathy - Studies Medications List Reviewed: Yes Assessment And Plan - Current Problems (Diagnosis) (1) NSTEMI (non-ST elevated myocardial infarction) Current Visit: Yes Status: Acute Plan: Pt c/o Chest Pain with Normal Sinus EKG and Elevated troponin -Cardiology consulted. Appreciated Reccs -S.P cardiac Cath - Negative for ACS -Most Likely elevated Troponin 2.2 to Infection (2) Hyponatremia Current Visit: Yes Status: Acute Plan: Hyponatremia along with have became the me most likely secondary to dehydration. -Nephrology consulted. Appreciated Reccs -NA improved to 134 today -NS stopped today (3) Influenza A Current Visit: Yes Status: Acute Plan: Patient with recent diagnosis of influenza A infection -Tamiflu completed (4) Pneumonia Current Visit: Yes Status: Suspected Plan: Suspected possible post influenza pneumonia -chest x-ray with questionable pneumonia -Switched to PO doxycycline today -WBC elevated awaiting sputum culture Qualifiers: Pneumonia type: due to unspecified organism Laterality: unspecified laterality Lung location: unspecified part of lung Qualified Code(s): J18.9 - Pneumonia, unspecified organism (5) Hypertension Current Visit: Yes Status: Chronic Plan: Will restart home med Qualifiers: Hypertension type: essential hypertension Qualified Code(s): I10 - Essential (primary) hypertension (6) Hypothyroid Current Visit: Yes Status: Chronic Qualifiers: Hypothyroidism type: acquired Qualified Code(s): E03.9 - Hypothyroidism, unspecified (7) Chronic back pain Current Visit: Yes Status: Chronic Qualifiers: Back pain location: low back pain Back pain laterality: unspecified Sciatica presence: unspecified whether sciatica present Qualified Code(s): M54.5 - Low back pain; G89.29 - Other chronic pain - Plan Pending Clinical Improvement. Discharge Plan: Home Plan to discharge in: 48 Hours - Code Status/Comfort Care Code Status Assessed: Yes Critical Care: No
[2019-01-08] MEDS: DOXYCYCLINE 100 MG CAP PO SCH (20:30)
[2019-01-08] MEDS: ATORVASTATIN 40 MG TAB PO SCH (20:31)
--- NOTE | 2019-01-09 04:24 | PN ---
Date of Progress Note: 01/08/2019 Subjective: The patient doing well, was admitted with hyponatremia secondary to dehydration secondar y to hydrochlorothiazide. Started hydration, recovered. Physical Examination: Vital Signs: Blood pressure 139/54, pulse of 62, afebrile. Chest: Clear to auscultation. Heart: S1, S2 regular. Abdomen: Soft, nontender. Extremities: No edema. Laboratory Data: WBC 19.5, H and H 11.2/32.4, platelets 392. Sodium 134, potassium 4.1, bicarb 30, BUN 3, creatinine 0.5, calcium 8.7, magnesium 1.7. Current Medications: Acyclovir, aspirin, atenolol, atorvastatin, calcium carbonate, fish oil, gabape ntin, hydralazine, and losartan. Assessment And Plan: 1.Hyponatremia secondary to prerenal, superimposed with hydrochlorothiazide, recovered, resolved. I am going to discontinue IV fluid. We will monitor the patient. 2.Hypertension, controlled optimal. Continue current medication. Keep holding hydrochlorothiazide. 3.Flu. Continue current treatment. We will follow up with the primary. SOFI Voice ID: [id number] Report ID: [id number]
[2019-01-09 04:44] LABS: BUN Blood Urea Nitrogen 8 mg/dL (7-18); Bicarbonate 31 mmol/L (21-32); Glucose Level 96 mg/dL (74-106); Phosphorus 2.5 mg/dL (2.5-4.9); Potassium 3.8 mmol/L (3.5-5.1); Sodium Level 136 mmol/L (136-145)
[2019-01-09] MEDS ORDERED: POTASSIUM CL SA 10 MEQ TAB PO ONE (05:05)
[2019-01-09] MEDS: LEVOTHYROXINE SOD 0.112 MG TAB PO SCH (05:40)
[2019-01-09] MEDS: POTASS/SODIUM PHOSPHATE 1 PKT POWD.PACK PO SCH ×3 (05:40→09:51)
[2019-01-09] MEDS: LEVOTHYROXINE SOD 0.025 MG TAB PO SCH (05:40)
[2019-01-09] MEDS: GABAPENTIN 300 MG CAP PO SCH ×2 (09:52→09:53)
[2019-01-09] MEDS: ASPIRIN EC 81 MG TAB PO SCH (09:52)
[2019-01-09] MEDS: CALCIUM CARB 500MG/VIT D 200 IU TAB PO SCH (09:53)
[2019-01-09] MEDS: DOXYCYCLINE 100 MG CAP PO SCH (09:53)
[2019-01-09] MEDS: GUAIFENESIN 600 MG SA TAB PO SCH (09:53)
[2019-01-09] MEDS: FAMOTIDINE 20 MG TAB PO SCH (09:53)
[2019-01-09] MEDS: DOCOSAHEXANOIC AC/EPA 1000 MG PO SCH (09:53)
[2019-01-09] MEDS: LORATADINE 10 MG TAB PO SCH (09:53)
[2019-01-09] MEDS: VITAMIN E 400 IU CAP PO SCH (09:54)
[2019-01-09] MEDS: BUPROPION HCL XL 150 MG TAB PO SCH (09:54)
[2019-01-09] MEDS: LOSARTAN POTASSIUM 50 MG TABLET PO SCH (09:54)
[2019-01-09] MEDS: HYDRALAZINE HCL 25 MG TABLET PO SCH (09:54)
[2019-01-09] MEDS: ATENOLOL 50 MG TAB PO SCH (09:54)
[2019-01-09] MEDS: ACYCLOVIR 400 MG TABLET PO SCH (09:54)
[2019-01-09 09:57] LABS: Absolute Lymphocytes (CBC) 2.9 K/uL (0.7-4.9); Absolute Monocytes 1.2 K/uL (0.1-1.3); Absolute Neutrophil 15.8 K/uL (1.8-8.0); Basophils % 0.3 % (0-1.3); Eosinophils % 1.6 % (0-4.4); Hematocrit 35.9 % (36.0-45.0); Lymphocytes % 14.1 % (15.3-44.8); MPV 7.3 fL (7.6-11.3); RBC Red Blood Cell Count 3.89 M/uL (3.86-4.86)
[2019-01-09] MEDS: ENOXAPARIN 40 MG/0.4 ML SQ SCH (09:58)
--- NOTE | 2019-01-09 10:31 | EKG ---
Test Date: 2019-01-07 Test Time: 14:27:14 Agricultural Adviser: AAN MEASUREMENT RESULTS: Intervals: Rate: 72 CO: 170 QRSD: 100 QT: 446 QTc: 488 [place]: P: 66 CO: 170 QRS: -28 T: 89 INTERPRETIVE STATEMENTS: Normal sinus rhythm Normal ECG Compared to ECG 01/05/2019 09:10:15 Sinus bradycardia no longer present ST (T wave) deviation no longer present Possible ischemia no longer present Prolonged QT interval no longer present Electronically Signed On 01-08-19 08:11:02 CDT by Jg Villa
[2019-01-09 10:41] LABS: Blood Morphology Comment NOT SEEN (NOT SEEN); Platelet Estimate INCR; Platelets, Giant RARE
[2019-01-09 10:55] VITALS: O2SAT 95
[2019-01-09 12:41] VITALS: BP 137/66; TEMP 98.9
--- NOTE | 2019-01-09 16:04 | P.DS ---
Admission Date: 01/05/19 Discharge Date: 01/09/19 Primary Care Provider: Dr. Bernard Disposition: ROUTINE DISCHARGE Discharge Condition: GOOD Consultations: Nephrology cardiology Procedures: Cardiac catheterization-negative for any acute coronary disease - Problems (1) NSTEMI (non-ST elevated myocardial infarction) Status: Acute (2) Hyponatremia Status: Acute (3) Influenza A Status: Acute (4) Pneumonia Status: Suspected Qualifiers: Pneumonia type: due to unspecified organism Laterality: unspecified laterality Lung location: unspecified part of lung Qualified Code(s): J18.9 - Pneumonia, unspecified organism (5) Hypertension Status: Chronic Qualifiers: Hypertension type: essential hypertension Qualified Code(s): I10 - Essential (primary) hypertension (6) Hypothyroid Status: Chronic Qualifiers: Hypothyroidism type: acquired Qualified Code(s): E03.9 - Hypothyroidism, unspecified (7) Chronic back pain Status: Chronic Qualifiers: Back pain location: low back pain Back pain laterality: unspecified Sciatica presence: unspecified whether sciatica present Qualified Code(s): M54.5 - Low back pain; G89.29 - Other chronic pain Brief History of Present Illness: This is a 63-year-old woman with past medical history of hypertension, hypothyroidism, chronic back pain who presented to the ED complaining of having some body aches generalized weakness and flu-like symptoms. Patient stated that on she went to her primary care doctor's office and was diagnosed with influenza A and was prescribed Tamiflu along with a antibiotics. Patient stated that she however had no resolution of her symptoms and thus decided to come to the ER for further workup. Patient stated that she has not been having adequate oral intake for the past couple of days as well. Patient denied having any fever chills nausea vomiting abdominal tenderness stroke is of breath or any chest pain at this time. In the ER patient was found to have lab work which was consistent with hyponatremia and hypokalemia in dehydration and thus was admitted for further workup. Calcitonin and lactic acid were negative Hospital Course: Overall during the hospital stay patient stable The patient was initially admitted to the hospital for hyponatremia most likely secondary to dehydration secondary to influenza and pneumonia. Patient was recently diagnosed with influenza A at urgent care and was discharged home after which he started having progressive weakness and decided to come to the ER. In the ER patient was found to have extensive hyponatremia and thus was admitted to the hospital for further care. Patient was started on normal saline and nephrology was consulted and patient was admitted to the ICU. Patient is sodium was corrected gradually here in the hospital 136 on the day of discharge. Patient also treated for pneumonia while here in the hospital. Patient's pneumonia was most likely secondary to post influenza pneumonia. Patient initially was kept on IV antibiotics and was switched over to oral doxycycline which she did well with overnight and thus was discharged home under stable condition. Patient initially did have elevated white count however it was most likely secondary to steroid use. The patient had elevated troponin here in the hospital and was complaining of chest pain does cardiology was consulted who recommended that patient get a cardiac catheterization done. Patient had cardiac catheterization done here in the hospital which was negative for any acute coronary syndrome. At that time patient was discharged home under stable condition and was asked to follow up with PCP in about 1-2 days post discharge. Patient's hyponatremia was most likely secondary to dehydration and her chest pain is most likely secondary to her fibromyalgia. Patient demonstrated understanding regarding the plan of care and discharge disposition and thus was discharged home under stable condition. Vital Signs/Physical Exam: Temp Pulse Resp BP Pulse Ox 98.9 F 62 20 137/66 98 01/09/19 12:00 01/09/19 12:00 01/09/19 12:00 01/09/19 12:00 01/09/19 12:00 General: Alert, In no apparent distress HEENT: Atraumatic, PERRLA, EOMI Neck: Supple, JVD not distended Respiratory: Clear to auscultation bilaterally, Normal air movement Cardiovascular: Regular rate/rhythm, Normal S1 S2 Gastrointestinal: Normal bowel sounds, No tenderness Musculoskeletal: No tenderness Integumentary: No rashes Neurological: Normal speech, Normal tone, Normal affect Lymphatics: No axilla or inguinal lymphadenopathy Laboratory Data at Discharge: WBC 20.3 K/uL (4.3-10.9) H* 01/09/19 09:50 Hgb 12.5 g/dL (12.0-15.0) 01/09/19 09:50 Hct 35.9 % (36.0-45.0) L 01/09/19 09:50 Plt Count 523 K/uL (152-406) H D 01/09/19 09:50 Sodium 136 mmol/L (136-145) 01/09/19 03:36 Potassium 3.8 mmol/L (3.5-5.1) 01/09/19 03:36 BUN 8 mg/dL (7-18) 01/09/19 03:36 Creatinine 0.64 mg/dL (0.55-1.3) 01/09/19 03:36 Glucose 96 mg/dL (74-106) 01/09/19 03:36 Phosphorus 2.5 mg/dL (2.5-4.9) 01/09/19 03:36 Magnesium 2.4 mg/dL (1.8-2.4) 01/08/19 03:49 Total Bilirubin 0.3 mg/dL (0.2-1.0) 01/08/19 03:49 AST 54 U/L (15-37) H 01/08/19 03:49 ALT 52 U/L (12-78) 01/08/19 03:49 Alkaline Phosphatase 129 U/L (45-117) H 01/08/19 03:49 Troponin I 2.01 ng/mL (0.0-0.045) H* 01/08/19 00:19 Home Medications: Albuterol Inhaler [Ventolin Inhaler*] 2 inh IH Q6HP PRN 01/05/19 Alprazolam [Alprazolam ER] 1 mg PO BEDTIME 01/05/19 Aspirin 81 mg PO DAILY 01/05/19 Atenolol 100 mg PO DAILY 01/05/19 Atorvastatin Calcium [Lipitor] 40 mg PO DAILY 01/05/19 Bupropion *Xl* [Wellbutrin XL*] 150 mg PO BID 01/05/19 Calcium Carbonate/Vitamin D3 [Oscal 500 + Vit D 200 Iu Tab*] 500 mg PO BID 01/05 Docosahexanoic AC/Epa [Fish Oil 1,000 MG*] 1 tab PO DAILY 01/05/19 Fluticasone Furoate [Arnuity Ellipta] 1 spray ALE BID 01/05/19 Furosemide [Lasix*] 20 mg PO DAILY 01/05/19 Gabapentin 300 mg PO BID 01/05/19 Gabapentin 600 mg PO TID 01/05/19 Guaifenesin [Mucinex] 1,200 mg PO BID 01/05/19 Hydralazine HCl 50 mg PO TID 01/05/19 Hydralazine HCl [Apresoline] 50 mg PO TID 01/05/19 Levothyroxine Sodium [Unithroid] 137 mcg PO DAILY 01/05/19 Loratadine [Claritin*] 10 mg PO DAILY 01/05/19 Losartan/Hydrochlorothiazide [Losartan-Hctz 100-25 mg Tab] 1 tab PO DAILY Ranitidine HCl [Acid [employer] Specialist] 150 mg PO BID 01/05/19 Vitamin E 400 unit PO TID 01/05/19 Acyclovir Tab [Zovirax*] 400 mg PO TID #60 tablet 01/09/19 Doxycycline Hyclate 100 mg PO BID #14 capsule 01/09/19 Losartan Potassium [Cozaar*] 50 mg PO DAILY #30 tab 01/09/19 New Medications: Acyclovir Tab [Zovirax*] 400 mg PO TID #60 tablet Doxycycline Hyclate 100 mg PO BID #14 capsule Losartan Potassium [Cozaar*] 50 mg PO DAILY #30 tab Patient Discharge Instructions: Please f.u with PCP and Nephrology in 1 to 2 days post discharge. No New medication Diet: Regular Activity: Ad maggy Followup: Anya Hobbs MD [ACTIVE - CAN ADMIT] - 1 Week
== END 2019-01-09 13:11 | disposition home or self-care (01) | DRG 640 ==
LOC: ER 08:36 → ERHOLD 11:08 → 3RD-ICU 01-06 16:56 → 4TH 01-07 13:30
PROVIDERS: ADMIT Family Medicine; ATTEND Family Medicine
PROC: 4A023N7 Measurement of Cardiac Sampling and Pressure, Left Heart, Percutaneous Approach (ICD-10-PCS; principal; 2019-01-08)
PROC: B211YZZ Fluoroscopy of Multiple Coronary Arteries using Other Contrast (ICD-10-PCS; 2019-01-08)
PROC: B215YZZ Fluoroscopy of Left Heart using Other Contrast (ICD-10-PCS; 2019-01-08)
DX: E87.1 Hypo-osmolality and hyponatremia (principal); J09.X1 Influenza due to identified novel influenza A virus with pneumonia; I21.4 Non-ST elevation (NSTEMI) myocardial infarction; E03.9 Hypothyroidism, unspecified; I10 Essential (primary) hypertension; M54.5 Low back pain; G89.29 Other chronic pain; E87.6 Hypokalemia; E86.0 Dehydration; M79.7 Fibromyalgia; E83.39 Other disorders of phosphorus metabolism; G62.9 Polyneuropathy, unspecified; T50.2X5A Adverse effect of carbonic-anhydrase inhibitors, benzothiadiazides and other diuretics, initial encounter; Y92.019 Unspecified place in single-family (private) house as the place of occurrence of the external cause; I34.1 Nonrheumatic mitral (valve) prolapse; Z88.5 Allergy status to narcotic agent; R07.9 Chest pain, unspecified; R79.89 Other specified abnormal findings of blood chemistry
CPT/HCPCS: 36415; 71046; 80048; 80053; 80069; 81003; 81015; 82550; 82553; 83605; 83735; 83930; 83935; 84100; 84132; 84145; 84300; 84484; 85025; 87040; 93005; 93458; 94760; 96361; 96365; 96366; 96375; 97162; 99285; C1893; J0456; J0583; J0696; J1644; J1650; J2250; J2270; J2405; J2930; J3010; J7030; J7512

== ENCOUNTER 2021-10-24 19:28 | Emergency (ER) | payer BC, OTHER ==
--- OUTSIDE RECORDS SUMMARY | 2021-10-24 19:35 | XMS REPORT | Continuity of Care Document ---
:1955 Author Organization [facility] t Address [address] [place] [address] [address] [place] [address] Care Team Providers Name Role Phone Cesar VALLE Primary Care Physician LOPEZ Attending Clinician Unavailable Philly VALLE Attending Clinician Doctor Unassigned, Name Attending Clinician Unavailable Radiology Attending Clinician Unavailable UNKNOWN Attending Clinician Unavailable Payers Payer Name Policy Type Policy Number Effective Date Expiration Date S ource Problems Condition Condition Condition Status Onset Resolution Last Treating Co mments Source Name Details Category Date Date Treatment Clinician Date Chest pain Chest pain Disease Active 0 U nivers 1-18 ity of 00:00: [address] Obesity Obesity Disease Active [address] [facility] (BMI (BMI 1-18 ity of 30-39.9) 30-39.9) 00:00: [address] Acute pain Acute pain Diagnosis Active [facility] Closed Closed Problem Active [facility] torus torus [facility] fracture fracture [facility] of distal of distal l end of end of Outpati left left ent radius, radius, Clinics initial initial encounter encounter Torus Torus Diagnosis Active [facility] fracture fracture [facility] of lower of lower Memori a end of end of l left left Outpati radius, radius, ent subsequent subsequent Cl inics encounter encounter for for fracture fracture with with routine routine healing healing Encounter Encounter Problem Active [facility] for other for other [facility] - orthopedic orthopedic [place] aftercare aftercare l Outpati ent Clinics Allergies, Adverse Reactions, Alerts Allergy Allergy Status Severity Reaction(s) Onset Inactive Treating Comm ents Source Name Type Date Date Clinician CODEINE DRUG Active N/V [facility] INGREDI 11-15 ity of 00:00: [place] 00 [facility] IODINE DRUG Active Anaphylaxis Unive rs INGREDI 11-15 ity of 00:00: [place] 00 [facility] Codeine Propensi Active Nausea Univers ty to and/or 11-15 ity of adverse Vomiting 00:00: [place] reaction 00 Medical s Branch Iodine Propensi Active Anaphylaxis Uni vers ty to 11-15 ity of adverse 00:00: [place] reaction 00 Medical s Branch codeine Adverse Active nausea and [facility] Reaction [facility] Social History Social Habit Start Date Stop Date Quantity Comments Source Exposure to Not sure [facility] SARS-CoV-2 [place] [facility] (event) [facility] Tobacco use and 2017-11-15 2017-11-15 Never used Universit y of exposure 00:00:00 00:00:00 [facility] Alcohol intake 2017-11-15 2017-11-15 Current University of 00:00:00 00:00:00 non-drinker of [facility] alcohol Branch (finding) History of 2013-11-15 Smoker [place] of tobacco use 00:00:00 [facility] Sex Ass[birth year] At [birth year] [facility] Smoking Status Start Date Stop Date Source Former smoker 2017-11-15 00:00:00 2017-11-15 00:00:00 Universi ty of [facility] Medications Ordered Filled Start Stop Current Ordering Indication Dosage Frequency Signature Comments Components Source Medication Medication Date Date Medication? Clinician (SIG) Name Name losartan-hy Yes 1{tbl} Take 1 Un shel[facility] drochloroth 1-18 tablet by ity of iazide 22:58: mouth [place] 100-25 mg 42 daily. Medical per tablet Branch loratadine Yes 10mg Take 10 mg U nivers (CLARITIN) 1-18 by mouth ity o f 10 mg 22:58: daily. [place] tablet 42 Medical Branch albuterol Yes 2{puff} Inhale 2 U nivers (VENTOLIN 1-18 Puffs ity of HFA) 90 22:58: every 6 [place] mcg/actuati 42 (six) Medical on inhaler hours as Branc h needed for Wheezing or Shortness of Breath. acyclovir 2018-0 Yes 400mg Take 400 Uni vers 400 mg 1-18 mg by ity of tablet 22:58: mouth. [place] [address] Medical Branch ALPRAZolam 2017-0 Yes 1mg Take 1 mg Un shel[facility] 1 mg tablet 1-18 by mouth 3 it y of 22:58: (three) [place] 42 times Medical daily. Branch aspirin 81 2018-0 Yes 81mg Take 81 mg U nivers mg chewable 1-18 by mouth ity of tablet 22:58: daily. [place] [address] Medical Branch atenolol 50 2017-0 Yes 100mg Take 100 U nivers mg tablet 1-18 mg by ity of 22:58: mouth [place] 42 daily. Medical Branch atorvastati 2017-0 Yes 40mg Take 40 mg Univers n 40 mg 1-18 by mouth ity of tablet 22:58: at [place] [address] bedtime. Medical Branch buPROPion 2017-0 Yes 150mg 150 mg 2 Uni vers XL 150 mg 1-18 (two) ity of 24 hr 22:58: times [place] tablet 42 daily. Medical Branch omega 2017-0 Yes Take by Univers 3-dha-epa-f 1-18 mouth. ity of ramo oil 22:58: [place] (FISH OIL) [address] [place] [address] [id number] Branch -600 mg CpDR Fluticasone 2017-0 Yes Inhale. Uni vers Propionate 1-18 ity of 100 22:58: [facility] Medical on Branch inhalation disk furosemide 2017-0 Yes 20mg Take 20 mg U nivers 20 mg 1-18 by mouth ity of tablet 22:58: daily. [place] [address] Medical Branch gabapentin 2018-0 Yes 600mg Take 600 Un [facility] 600 mg 1-18 mg by ity of tablet 22:58: mouth 3 [place] [address] (three) Medical times Branch daily. HYDRALAZINE 2017-0 Yes 50mg Take 50 mg Univers HCL 1-18 by mouth 3 ity of (HYDRALAZIN 22:58: (three) [place] [facility] E ORAL) 42 times Medical daily. Branch Levothyroxi 2017-0 Yes Take by Un shelly ne 137 mcg 1-18 mouth. ity of Cap 22:58: [place] [address] Medical Branch losartan-hy 2018-0 Yes 1{tbl} Take 1 Un [facility] drochloroth 1-18 tablet by ity of iazide 22:58: mouth [place] 100-25 mg 42 daily. Medical per tablet Branch loratadine 0 Yes 10mg Take 10 mg U nivers (CLARITIN) 1-18 by mouth ity o f 10 mg 22:58: daily. [place] tablet Medical Branch albuterol 2017-0 Yes 2{puff} Inhale 2 U nivers (VENTOLIN 1-18 Puffs ity of HFA) 90 22:58: every 6 [place] mcg/actuati 42 (six) Medical on inhaler hours as Branc h needed for Wheezing or Shortness of Breath. acyclovir 2017-0 Yes 400mg Take 400 Uni vers 400 mg 1-18 mg by ity of tablet 22:58: mouth. [place] [address] Medical Branch ALPRAZolam 0 Yes 1mg Take 1 mg Un shel[facility] 1 mg tablet 1-18 by mouth 3 it y of 22:58: (three) [place] 42 times Medical daily. Branch aspirin 81 0 Yes 81mg Take 81 mg U nivers mg chewable 1-18 by mouth ity of tablet 22:58: daily. [place] [address] Medical Branch atenolol 50 0 Yes 100mg Take 100 U nivers mg tablet 1-18 mg by ity of 22:58: mouth [place] 42 daily. Medical Branch atorvastati 0 Yes 40mg Take 40 mg Univers n 40 mg 1-18 by mouth ity of tablet 22:58: at [place] 42 bedtime. Medical Branch buPROPion 0 Yes 150mg 150 mg 2 Uni vers XL 150 mg 1-18 (two) ity of 24 hr 22:58: times [place] tablet 42 daily. Medical Branch omega 0 Yes Take by Univers 3-dha-epa-f 1-18 mouth. ity of ramo oil 22:58: [place] (FISH OIL) Medical [id number] Branch -600 mg CpDR Fluticasone 2017-0 Yes Inhale. Uni vers Propionate 1-18 ity of 100 22:58: [place] mcg/actuati 42 Medical on Branch inhalation disk furosemide 2018-0 Yes 20mg Take 20 mg U nivers 20 mg 1-18 by mouth ity of tablet 22:58: daily. [place] [address] Medical Branch gabapentin 2018-0 Yes 600mg Take 600 Un [facility] 600 mg 1-18 mg by ity of tablet 22:58: mouth 3 [place] 42 (three) Medical times Branch daily. HYDRALAZINE 2017-0 Yes 50mg Take 50 mg Univers HCL 1-18 by mouth 3 ity of (HYDRALAZIN 22:58: (three) [place] E ORAL) 42 times Medical daily. Branch Levothyroxi 0 Yes Take by Un shelly ne 137 mcg 1-18 mouth. ity of Cap 22:58: [place] [address] Medical Branch losartan-hy 0 Yes 1{tbl} Take 1 Un [facility] drochloroth 1-18 tablet by ity of iazide 22:58: mouth [place] 100-25 mg 42 daily. Medical per tablet Branch loratadine 0 Yes 10mg Take 10 mg U nivers (CLARITIN) 1-18 by mouth ity o f 10 mg 22:58: daily. [place] tablet 42 Medical Branch albuterol 0 Yes 2{puff} Inhale 2 U nivers (VENTOLIN 1-18 Puffs ity of HFA) 90 22:58: every 6 [place] mcg/actuati 42 (six) Medical on inhaler hours as Branc h needed for Wheezing or Shortness of Breath. acyclovir 0 Yes 400mg Take 400 Uni vers 400 mg 1-18 mg by ity of tablet 22:58: mouth. [place] [address] Medical Branch ALPRAZolam 0 Yes 1mg Take 1 mg Un [facility] 1 mg tablet 1-18 by mouth 3 it y of 22:58: (three) [place] 42 times Medical daily. Branch aspirin 81 2017-0 Yes 81mg Take 81 mg U nivers mg chewable 1-18 by mouth ity of tablet 22:58: daily. [place] [address] Medical Branch atenolol 50 2017-0 Yes 100mg Take 100 U nivers mg tablet 1-18 mg by ity of 22:58: mouth [place] 42 daily. Medical Branch atorvastati 0 Yes 40mg Take 40 mg Univers n 40 mg 1-18 by mouth ity of tablet 22:58: at [place] 42 bedtime. Medical Branch buPROPion 0 Yes 150mg 150 mg 2 Uni vers XL 150 mg 1-18 (two) ity of 24 hr 22:58: times [place] tablet 42 daily. Medical Branch omega 0 Yes Take by Univers 3-dha-epa-f 1-18 mouth. ity of ramo oil 22:58: [place] (FISH OIL) [address] [place] [address] [id number] Branch -600 mg CpDR Fluticasone 2018-0 Yes Inhale. Uni vers Propionate 1-18 ity of 100 22:58: [facility]/actuati Medical on Branch inhalation disk furosemide 2018-0 Yes 20mg Take 20 mg U nivers 20 mg 1-18 by mouth ity of tablet 22:58: daily. [place] [address] Medical Branch gabapentin 2018-0 Yes 600mg Take 600 Un [facility] 600 mg 1-18 mg by ity of tablet 22:58: mouth 3 [place] 42 (three) Medical times Branch daily. HYDRALAZINE 2017-0 Yes 50mg Take 50 mg Univers HCL 1-18 by mouth 3 ity of (HYDRALAZIN 22:58: (three) [place] E ORAL) 42 times Medical daily. Branch Levothyroxi 2017-0 Yes Take by Un shelly ne 137 mcg 1-18 mouth. ity of Cap 22:58: [place] [address] Medical Branch losartan-hy 2017-0 Yes 1{tbl} Take 1 Un [facility] drochloroth 1-18 tablet by ity of iazide 22:58: mouth [place] 100-25 mg 42 daily. Medical per tablet Branch loratadine 2017-0 Yes 10mg Take 10 mg U nivers (CLARITIN) 1-18 by mouth ity o f 10 mg 22:58: daily. [place] [address] Medical Branch albuterol 2017-0 Yes 2{puff} Inhale 2 U nivers (VENTOLIN 1-18 Puffs ity of HFA) 90 22:58: every 6 [facility]/actuati (six) Medical on inhaler hours as Branc h needed for Wheezing or Shortness of Breath. acyclovir 2018-0 Yes 400mg Take 400 Uni vers 400 mg 1-18 mg by ity of tablet 22:58: mouth. [place] [address] Medical Branch ALPRAZolam 2017-0 Yes 1mg Take 1 mg Un shel[facility] 1 mg tablet 1-18 by mouth 3 it y of 22:58: (three) [place] 42 times Medical daily. Branch aspirin 81 2018-0 Yes 81mg Take 81 mg U nivers mg chewable 1-18 by mouth ity of tablet 22:58: daily. [place] [address] Medical Branch atenolol 50 Yes 100mg Take 100 U nivers mg tablet 1-18 mg by ity of 22:58: mouth [place] 42 daily. Medical Branch atorvastati Yes 40mg Take 40 mg Univers n 40 mg 1-18 by mouth ity of tablet 22:58: at [place] 42 bedtime. Medical Branch buPROPion Yes 150mg 150 mg 2 Uni vers XL 150 mg 1-18 (two) ity of 24 hr 22:58: times [place] tablet 42 daily. Medical Branch omega 0 Yes Take by Univers 3-dha-epa-f 1-18 mouth. ity of ramo oil 22:58: [place] (FISH OIL) Medical [id number] Branch -600 mg CpDR Fluticasone 0 Yes Inhale. Uni vers Propionate 1-18 ity of 100 22:58: [place] mcg/actuati 42 Medical on Branch inhalation disk furosemide Yes 20mg Take 20 mg U nivers 20 mg 1-18 by mouth ity of tablet 22:58: daily. [place] [address] Medical Branch gabapentin 0 Yes 600mg Take 600 Un [facility] 600 mg 1-18 mg by ity of tablet 22:58: mouth 3 [place] 42 (three) Medical times Branch daily. HYDRALAZINE 0 Yes 50mg Take 50 mg Univers HCL 1-18 by mouth 3 ity of (HYDRALAZIN 22:58: (three) [place] E ORAL) 42 times Medical daily. Branch Levothyroxi Yes Take by Un shelly ne 137 mcg 1-18 mouth. ity of Cap 22:58: [place] [address] Medical Branch losartan-hy 0 Yes 1{tbl} Take 1 Un [facility] drochloroth 1-18 tablet by ity of iazide 22:58: mouth [place] 100-25 mg 42 daily. Medical per tablet Branch loratadine 0 Yes 10mg Take 10 mg U nivers (CLARITIN) 1-18 by mouth ity o f 10 mg 22:58: daily. [place] tablet 42 Medical Branch albuterol 0 Yes 2{puff} Inhale 2 U nivers (VENTOLIN 1-18 Puffs ity of HFA) 90 22:58: every 6 [place] mcg/actuati 42 (six) Medical on inhaler hours as Branc h needed for Wheezing or Shortness of Breath. acyclovir 2018-0 Yes 400mg Take 400 Uni vers 400 mg 1-18 mg by ity of tablet 22:58: mouth. [place] [address] Medical Branch ALPRAZolam 2017-0 Yes 1mg Take 1 mg Un shel[facility] 1 mg tablet 1-18 by mouth 3 it y of 22:58: (three) [place] 42 times Medical daily. Branch aspirin 81 2018-0 Yes 81mg Take 81 mg U nivers mg chewable 1-18 by mouth ity of tablet 22:58: daily. [place] [address] Medical Branch atenolol 50 2018-0 Yes 100mg Take 100 U nivers mg tablet 1-18 mg by ity of 22:58: mouth [place] 42 daily. Medical Branch atorvastati 2017-0 Yes 40mg Take 40 mg Univers n 40 mg 1-18 by mouth ity of tablet 22:58: at [place] bedtime. Medical Branch buPROPion 2017-0 Yes 150mg 150 mg 2 Uni vers XL 150 mg 1-18 (two) ity of 24 hr 22:58: times [place] tablet 42 daily. Medical Branch omega 0 Yes Take by Univers 3-dha-epa-f 1-18 mouth. ity of ramo oil 22:58: [place] (FISH OIL) Medical 300-108-162 Branch -600 mg CpDR Fluticasone 2017-0 Yes Inhale. Uni vers Propionate 1-18 ity of 100 22:58: [place] mcg/actuati Medical on Branch inhalation disk furosemide 2017-0 Yes 20mg Take 20 mg U nivers 20 mg 1-18 by mouth ity of tablet 22:58: daily. [place] [address] Medical Branch gabapentin 2018-0 Yes 600mg Take 600 Un shel[facility] 600 mg 1-18 mg by ity of tablet 22:58: mouth 3 [place] 42 (three) Medical times Branch daily. HYDRALAZINE 2018-0 Yes 50mg Take 50 mg Univers HCL 1-18 by mouth 3 ity of (HYDRALAZIN 22:58: (three) [place] E ORAL) 42 times Medical daily. Branch Levothyroxi 2017-0 Yes Take by Un shelly ne 137 mcg 1-18 mouth. ity of Cap 22:58: [place] [address] Medical Branch losartan-hy 2018-0 Yes 1{tbl} Take 1 Un shel[place] drochloroth 1-18 tablet by ity of iazide 22:58: mouth [place] 100-25 mg 42 daily. Medical per tablet Branch loratadine 2017-0 Yes 10mg Take 10 mg U nivers (CLARITIN) 1-18 by mouth ity o f 10 mg 22:58: daily. [place] tablet 42 Medical Branch albuterol 2018-0 Yes 2{puff} Inhale 2 U nivers (VENTOLIN 1-18 Puffs ity of HFA) 90 22:58: every 6 [place] mcg/actuati 42 (six) Medical on inhaler hours as Branc h needed for Wheezing or Shortness of Breath. acyclovir 2018-0 Yes 400mg Take 400 Uni vers 400 mg 1-18 mg by ity of tablet 22:58: mouth. [place] [address] Medical Branch ALPRAZolam 0 Yes 1mg Take 1 mg Un shel[facility] 1 mg tablet 1-18 by mouth 3 it y of 22:58: (three) [place] [address] times Medical daily. Branch aspirin 81 2017-0 Yes 81mg Take 81 mg U nivers mg chewable 1-18 by mouth ity of tablet 22:58: daily. [place] [address] Medical Branch atenolol 50 2017-0 Yes 100mg Take 100 U nivers mg tablet 1-18 mg by ity of 22:58: mouth [place] 42 daily. Medical Branch atorvastati 0 Yes 40mg Take 40 mg Univers n 40 mg 1-18 by mouth ity of tablet 22:58: at [place] 42 bedtime. Medical Branch buPROPion 0 Yes 150mg 150 mg 2 Uni vers XL 150 mg 1-18 (two) ity of 24 hr 22:58: times [place] tablet 42 daily. Medical Branch omega 2017-0 Yes Take by Univers 3-dha-epa-f 1-18 mouth. ity of ramo oil 22:58: [place] (FISH OIL) Medical 300-108-162 Branch -600 mg CpDR Fluticasone 2018-0 Yes Inhale. Uni vers Propionate 1-18 ity of 100 22:58: [place] mcg/actuati 42 Medical on Branch inhalation disk furosemide 2018-0 Yes 20mg Take 20 mg U nivers 20 mg 1-18 by mouth ity of tablet 22:58: daily. [place] [address] Medical Branch gabapentin 2018-0 Yes 600mg Take 600 Un [facility] 600 mg 1-18 mg by ity of tablet 22:58: mouth 3 [place] 42 (three) Medical times Branch daily. HYDRALAZINE 0 Yes 50mg Take 50 mg Univers HCL 1-18 by mouth 3 ity of (HYDRALAZIN 22:58: (three) [place] E ORAL) 42 times Medical daily. Branch Levothyroxi 0 Yes Take by Un [facility] ne 137 mcg 1-18 mouth. ity of Cap 22:58: [place] [address] Medical Branch losartan-hy 0 Yes 1{tbl} Take 1 Un [place] drochloroth 1-18 tablet by ity of iazide 22:58: mouth [place] 100-25 mg 42 daily. Medical per tablet Branch loratadine Yes 10mg Take 10 mg U nivers (CLARITIN) 1-18 by mouth ity o f 10 mg 22:58: daily. [place] tablet 42 Medical Branch albuterol 0 Yes 2{puff} Inhale 2 U nivers (VENTOLIN 1-18 Puffs ity of HFA) 90 22:58: every 6 [place] mcg/actuati 42 (six) Medical on inhaler hours as Branc h needed for Wheezing or Shortness of Breath. acyclovir 0 Yes 400mg Take 400 Uni vers 400 mg 1-18 mg by ity of tablet 22:58: mouth. [place] [address] Medical Branch ALPRAZolam 0 Yes 1mg Take 1 mg Un [facility] 1 mg tablet 1-18 by mouth 3 it y of 22:58: (three) [place] 42 times Medical daily. Branch aspirin 81 Yes 81mg Take 81 mg U nivers mg chewable 1-18 by mouth ity of tablet 22:58: daily. [place] [address] Medical Branch atenolol 50 0 Yes 100mg Take 100 U nivers mg tablet 1-18 mg by ity of 22:58: mouth [place] 42 daily. Medical Branch atorvastati Yes 40mg Take 40 mg Univers n 40 mg 1-18 by mouth ity of tablet 22:58: at [place] 42 bedtime. Medical Branch buPROPion 0 Yes 150mg 150 mg 2 Uni vers XL 150 mg 1-18 (two) ity of 24 hr 22:58: times [place] tablet 42 daily. Medical Branch omega 0 Yes Take by Univers 3-dha-epa-f 1-18 mouth. ity of ramo oil 22:58: [place] (FISH OIL) Medical 300-108-162 Branch -600 mg CpDR Fluticasone 2018-0 Yes Inhale. Uni vers Propionate 1-18 ity of 100 22:58: [place] mcg/actuati 42 Medical on Branch inhalation disk furosemide 2018-0 Yes 20mg Take 20 mg U nivers 20 mg 1-18 by mouth ity of tablet 22:58: daily. [place] [address] Medical Branch gabapentin 2018-0 Yes 600mg Take 600 Un [facility] 600 mg 1-18 mg by ity of tablet 22:58: mouth 3 [place] (three) Medical times Branch daily. HYDRALAZINE 2017-0 Yes 50mg Take 50 mg Univers HCL 1-18 by mouth 3 ity of (HYDRALAZIN 22:58: (three) [place] E ORAL) 42 times Medical daily. Branch Levothyroxi 2017-0 Yes Take by Un shel[place] ne 137 mcg 1-18 mouth. ity of Cap 22:58: [place] [address] Medical Branch losartan-hy 2017-0 Yes 1{tbl} Take 1 Un [place] drochloroth 1-18 tablet by ity of iazide 22:58: mouth [place] 100-25 mg 42 daily. Medical per tablet Branch loratadine 2017-0 Yes 10mg Take 10 mg U nivers (CLARITIN) 1-18 by mouth ity o f 10 mg 22:58: daily. [place] [address] Medical Branch albuterol 2017-0 Yes 2{puff} Inhale 2 U nivers (VENTOLIN 1-18 Puffs ity of HFA) 90 22:58: every 6 [facility]/actuati (six) Medical on inhaler hours as Branc h needed for Wheezing or Shortness of Breath. acyclovir 2017-0 Yes 400mg Take 400 Uni vers 400 mg 1-18 mg by ity of tablet 22:58: mouth. [place] [address] Medical Branch ALPRAZolam 2017-0 Yes 1mg Take 1 mg Un [facility] 1 mg tablet 1-18 by mouth 3 it y of 22:58: (three) [place] 42 times Medical daily. Branch aspirin 81 2018-0 Yes 81mg Take 81 mg U nivers mg chewable 1-18 by mouth ity of tablet 22:58: daily. [place] [address] Medical Branch atenolol 50 2017-0 Yes 100mg Take 100 U nivers mg tablet 1-18 mg by ity of 22:58: mouth [place] daily. Medical Branch atorvastati 0 Yes 40mg Take 40 mg Univers n 40 mg 1-18 by mouth ity of tablet 22:58: at [place] 42 bedtime. Medical Branch buPROPion 0 Yes 150mg 150 mg 2 Uni vers XL 150 mg 1-18 (two) ity of 24 hr 22:58: times [place] tablet 42 daily. Medical Branch omega 0 Yes Take by Univers 3-dha-epa-f 1-18 mouth. ity of ramo oil 22:58: [place] (FISH OIL) Medical 300-108-162 Branch -600 mg CpDR Fluticasone 2017-0 Yes Inhale. Uni vers Propionate 1-18 ity of 100 22:58: [place] mcg/actuati Medical on Branch inhalation disk furosemide 2017-0 Yes 20mg Take 20 mg U nivers 20 mg 1-18 by mouth ity of tablet 22:58: daily. [place] [address] Medical Branch gabapentin 0 Yes 600mg Take 600 Un [place] 600 mg 1-18 mg by ity of tablet 22:58: mouth 3 [place] 42 (three) Medical times Branch daily. HYDRALAZINE 0 Yes 50mg Take 50 mg Univers HCL 1-18 by mouth 3 ity of (HYDRALAZIN 22:58: (three) [place] as E ORAL) 42 times Medical daily. Branch Levothyroxi 0 Yes Take by Un shel[facility] ne 137 mcg 1-18 mouth. ity of Cap 22:58: [place] [address] Medical Branch losartan-hy 0 Yes 1{tbl} Take 1 Un [place] drochloroth 1-18 tablet by ity of iazide 22:58: mouth [place] 100-25 mg 42 daily. Medical per tablet Branch loratadine 0 Yes 10mg Take 10 mg U nivers (CLARITIN) 1-18 by mouth ity o f 10 mg 22:58: daily. [place] tablet 42 Medical Branch albuterol 0 Yes 2{puff} Inhale 2 U nivers (VENTOLIN 1-18 Puffs ity of HFA) 90 22:58: every 6 [place] mcg/actuati 42 (six) Medical on inhaler hours as Branc h needed for Wheezing or Shortness of Breath. acyclovir 2017-0 Yes 400mg Take 400 Uni vers 400 mg 1-18 mg by ity of tablet 22:58: mouth. [place] [address] Medical Branch ALPRAZolam 2018-0 Yes 1mg Take 1 mg Un [facility] 1 mg tablet 1-18 by mouth 3 it y of 22:58: (three) [place] 42 times Medical daily. Branch aspirin 81 2018-0 Yes 81mg Take 81 mg U nivers mg chewable 1-18 by mouth ity of tablet 22:58: daily. [place] [address] Medical Branch atenolol 50 2017-0 Yes 100mg Take 100 U nivers mg tablet 1-18 mg by ity of 22:58: mouth [place] 42 daily. Medical Branch atorvastati 0 Yes 40mg Take 40 mg Univers n 40 mg 1-18 by mouth ity of tablet 22:58: at [place] [address] bedtime. Medical Branch buPROPion 2017-0 Yes 150mg 150 mg 2 Uni vers XL 150 mg 1-18 (two) ity of 24 hr 22:58: times [place] tablet 42 daily. Medical Branch omega 0 Yes Take by Univers 3-dha-epa-f 1-18 mouth. ity of ramo oil 22:58: [place] (FISH OIL) Medical [id number] Branch -600 mg CpDR Fluticasone 2017-0 Yes Inhale. Uni vers Propionate 1-18 ity of 100 22:58: [place] mcg/actuati Medical on Branch inhalation disk furosemide 2017-0 Yes 20mg Take 20 mg U nivers 20 mg 1-18 by mouth ity of tablet 22:58: daily. [place] [address] Medical Branch gabapentin 2017-0 Yes 600mg Take 600 Un [facility] 600 mg 1-18 mg by ity of tablet 22:58: mouth 3 [place] [address] (three) Medical times Branch daily. HYDRALAZINE 2017-0 Yes 50mg Take 50 mg Univers HCL 1-18 by mouth 3 ity of (HYDRALAZIN 22:58: (three) [place] as E ORAL) 42 times Medical daily. Branch Levothyroxi 2017-0 Yes Take by Un [facility] ne 137 mcg 1-18 mouth. ity of Cap 22:58: [place] [address] Medical Branch Tramadol Tramadol [facility] HydrALAZINE HydrALAZINE Yes R[facility] not [facility] HCl HCl [facility] Atenolol Atenolol Yes [facility] Ranitidine Ranitidine Yes Rc not [facility] Fish Oil Fish Oil Yes [facility] Atorvastati Atorvastati Yes Rc not [facility] n Calcium n Calcium [facility] Vitamin E Vitamin E Yes Rc not [facility] Losartan Losartan [facility] Potassium-H Potassium-H [facility] potassium potassium [facility] R[facility] not [facility] Oscal Oscal Yes Rc not [facility] 500/200 D-3 500/200 D-3 [facility] Aspirin 81 Aspirin 81 Yes Rc not [facility] Alprazolam Alprazolam Yes R[facility] not [facility] BuPROPion BuPROPion Yes Rc not [facility] HCl ER (SR) HCl ER (SR) [facility] Acyclovir Acyclovir Yes Rc not [facility] Fluticasone Fluticasone Yes Rc not [facility] Propionate Propionate [facility] Mucinex Mucinex Yes Rc not [facility] Furosemide Furosemide Yes Rc not [facility] Ventolin Ventolin Yes [facility] HFA HFA [facility] Levothyroxi Levothyroxi Yes Rc not [facility] ne Sodium ne Sodium [facility] Gabapentin Gabapentin Yes Rc not [facility] Procedures Procedure Date / Time Performing Clinician Source Performed US ABDOMEN LIMITED 2021-06-30 19:31:16 [facility] [place] ASSIGNMENT OF BENEFITS 2021-06-30 18:48:18 Doctor Unassigned, No [facility] BI ULTRASOUND BREAST 2021-01-18 19:19:03 Requisition, Paper Univ [facility] LIMITED BILATERAL Medical Branch ASSIGNMENT OF BENEFITS 2021-01-18 18:32:50 Doctor Unassigned, No [facility] DEXA AXIAL (HIP AND 2020-12-28 21:10:15 Requisition, Paper [facility] SPINE) Medical Branch BI SCREENING 2020-12-28 20:54:00 Requisition, Paper [facility] TOMOSYNTHESIS BILATERAL Medical Branch ASSIGNMENT OF BENEFITS 2020-12-28 20:29:22 Doctor Unassigned, No [facility] Encounters Start End Encounter Admission Attending Care Care Encounter Source Date/Time Date/Time Type Type Clinicians Facility Department ID 2021-08-09 2021-08-09 Outpatient LOPEZ, [facility] [id number] Amelia 00:00:00 00:00:00 CIERA [address] 2021-08-09 2021-08-09 Outpatient LOPEZ, [facility] [id number] Amelia 00:00:00 00:00:00 CIERA [address] 2021-06-30 2021-06-30 [facility] [id number] Univers 13:50:59 23:59:00 Encounter Wilian Álvarez [id number] ity of [place] [id number] [facility] [id number] [facility] 806 Branch 2021-06-30 2021-06-30 Outpatient R [facility] [id number] -[id number] Univers 14:00:00 14:00:00 [id number] ity of [facility] 2021-06-30 2021-06-30 Outpatient R [facility] [id number] Univers 00:00:00 00:00:00 ity of [facility] 2021-06-30 2021-06-30 Orders Doctor MENEZES 1.2.840.114 [id number] Univers 00:00:00 00:00:00 Only Unassigned, JAYANT [id number] ity of [place] [facility] [id number] James as [phone] [facility] 009 Branch 2021-01-18 2021-01-18 [facility] Radiology [facility] [id number] Univers 13:35:54 23:59:00 Encounter [place] [id number] ity [id number] [id number] [facility] 806 Branch 2021-01-18 2021-01-18 Outpatient R [facility] [id number] -[id number] Univers 00:00:00 00:00:00 [id number] ity of [facility] 2021-01-18 2021-01-18 Outpatient R [facility] [id number] Univers 00:00:00 00:00:00 ity of [facility] 2021-01-18 2021-01-18 Orders Doctor MENEZES [id number] [id number] Univers 00:00:00 00:00:00 Only Unassigned, JAYANT [id number] ity of [place] [facility] [id number] James as [id number] [facility] 009 Branch 2020-12-28 2020-12-28 [facility] Radiology [facility] 1.2.840.114 [id number] Univers 14:20:00 23:59:00 Encounter [place] [id number] ity of [id number] [id number] [facility] 800 Branch 2020-12-28 2020-12-28 [facility] Radiology [facility] [id number] Univers 14:00:00 14:19:00 Encounter [place] [id number] ity of [id number] [id number] [facility] 800 Branch 2020-12-28 2020-12-28 Outpatient R [facility] [id number] Univers 00:00:00 00:00:00 ity of [facility] 2020-12-28 2020-12-28 Outpatient R [facility] [id number] Univers 00:00:00 00:00:00 [id number] ity of [facility] Branch 2020-12-28 2020-12-28 Orders Doctor RIRI [id number] Univers 00:00:00 00:00:00 Only Unassigned, JAYANT [id number] ity of [place] [facility] [id number] James as [id number] [address] 2020-12-14 2020-12-14 Outpatient R [facility] [id number] -[id number] Univers 00:00:00 00:00:00 [id number] ity [facility] 2020-12-09 2020-12-09 Outpatient R [facility] [id number] -[id number] Univers 00:00:00 00:00:00 [id number] ity [facility] 2020-12-09 2020-12-09 Outpatient R UNKNOWN, [facility] [id number] Univers 00:00:00 00:00:00 ATTENDING ity [facility] 2018-12-26 2018-12-26 Outpatient [place]nie Mayt [id number] 10:30:00 10:30:00 [facility] 2018-11-29 2018-11-29 Outpatient [place] [id number] 09:30:00 09:30:00 [facility] 2018-10-25 2018-10-25 Outpatient [place]nie Mayt [id number] 10:00:00 10:00:00 [facility] Results Test Description Test Test Results Result Source Time Comments Comments US ABDOMEN 2021-06-29. ?Mild hepatic Univers ity of LIMITED 02 steatosis. 2. ?No [facility] [place] edical 20:06:59 cholelithiasis. Branch Unremarkable appearance of the gallbladder. EXAM: US ABDOMEN LIMITED HISTORY: 65 years-old Female with Hypothyroidism, unspecified typeDiarrhea, unspecified type . TECHNIQUE: Limited abdominal ultrasound was performed focused on the rightupper quadrant. Main portal vein was evaluated with color Doppler imaging.Merchandise Distributor images were obtained for the record. COMPARISON: None FINDINGS: LIVER: Length: 16.2 cm.Parenchyma: Mild diffuse increase in hepatic parenchymal echogenicity. Nofocal lesion is detected.Portal vein: Hepatopetal flow present in the main portal vein. MPV diameter1 cm GALLBLADDER:No cholelithiasis.Normal gallbladder wall thickness, 3.5 mm.Negative Ellington's sign. BILE DUCTS:No intra- or extrahepatic biliary dilatation.Common Duct diameter: 3 mm. PANCREAS: Limited visualization due to shadowing from bowel gas.. Imagedhead and body of pancreas are unremarkable. AORTA:Abdominal aorta is normal in caliber where visualized. Diameter of theproximal abdominal aorta is 1.8 cm. OTHER: Visualized portions of the right kidney are unremarkable. [facility], Radiant Results Inft User - 06/30/2021 3:08 PM CDT EXAM: US ABDOMEN LIMITEDHISTORY: 65 years-old Female with Hypothyroidism, unspecified typeDiarrhea, unspecified type .TECHNIQUE: Limited abdominal ultrasound was performed focused on the rightupper quadrant. Main portal vein was evaluated with color Doppler imaging.Merchand[employer] Distributor images were obtained for the record.COMPARISON: NoneFINDINGS: LIVER: Length: 16.2 cm.Parenchyma: Mild diffuse increase in hepatic parenchymal echogenicity. Nofocal lesion is detected.Portal vein: Hepatopetal flow present in the main portal vein. MPV diameter1 cmGALLBLADDER:No cholelithiasis.Normal gallbladder wall thickness, 3.5 mm.Negative Ellington's sign.BILE DUCTS:No intra- or extrahepatic biliary dilatation.Common Duct diameter: 3 mm.PANCREAS: Limited visualization due to shadowing from bowel gas.. Imagedhead and body of pancreas are unremarkable.AORTA:Abdo tiffanie aorta is normal in caliber where visualized. Diameter of theproximal abdominal aorta is 1.8 cm.OTHER: Visualized portions of the right kidney are unremarkable.IMPRESSION 1. Mild hepatic steatosis.2. No cholelithiasis. Unremarkable appearance of the gallbladder. US ABDOMEN 2021-06-29. ?Mild hepatic Univers ity of LIMITED 02 steatosis. 2. ?No [facility] [place] ed[facility] 20:06:59 cholelithiasis. Branch Unremarkable appearance of the gallbladder. EXAM: US ABDOMEN LIMITED HISTORY: 65 years-old Female with Hypothyroidism, unspecified typeDiarrhea, unspecified type . TECHNIQUE: Limited abdominal ultrasound was performed focused on the rightupper quadrant. Main portal vein was evaluated with color Doppler imaging.Merchandise Distributor images were obtained for the record. COMPARISON: None FINDINGS: LIVER: Length: 16.2 cm.Parenchyma: Mild diffuse increase in hepatic parenchymal echogenicity. Nofocal lesion is detected.Portal vein: Hepatopetal flow present in the main portal vein. MPV diameter1 cm GALLBLADDER:No cholelithiasis.Normal gallbladder wall thickness, 3.5 mm.Negative Ellington's sign. BILE DUCTS:No intra- or extrahepatic biliary dilatation.Common Duct diameter: 3 mm. PANCREAS: Limited visualization due to shadowing from bowel gas.. Imagedhead and body of pancreas are unremarkable. AORTA:Abdominal aorta is normal in caliber where visualized. Diameter of theproximal abdominal aorta is 1.8 cm. OTHER: Visualized portions of the right kidney are unremarkable. [facility], Radiant Results Inft User - 06/30/2021 3:08 PM CDT EXAM: US ABDOMEN LIMITEDHISTORY: 65 years-old Female with Hypothyroidism, unspecified typeDiarrhea, unspecified type .TECHNIQUE: Limited abdominal ultrasound was performed focused on the rightupper quadrant. Main portal vein was evaluated with color Doppler imaging.Merchandise Distributor images were obtained for the record.COMPARISON: NoneFINDINGS: LIVER: Length: 16.2 cm.Parenchyma: Mild diffuse increase in hepatic parenchymal echogenicity. Nofocal lesion is detected.Portal vein: Hepatopetal flow present in the main portal vein. MPV diameter1 cmGALLBLADDER:No cholelithiasis.Normal gallbladder wall thickness, 3.5 mm.Negative Ellington's sign.BILE DUCTS:No intra- or extrahepatic biliary dilatation.Common Duct diameter: 3 mm.PANCREAS: Limited visualization due to shadowing from bowel gas.. Imagedhead and body of pancreas are unremarkable.AORTA:Abdo tiffanie aorta is normal in caliber where visualized. Diameter of theproximal abdominal aorta is 1.8 cm.OTHER: Visualized portions of the right kidney are unremarkable.IMPRESSION 1. Mild hepatic steatosis.2. No cholelithiasis. Unremarkable appearance of the gallbladder. ULTRASOUND 2020-12- Examination:BI Univers ity of BREAST LIMITED 23 ULTRASOUND BREAST James as Medical BILATERAL 19:48:24 LIMITED BILATERAL Branch History:Patient is 65 year old and is seen for: ?Abnormal mammogram. Right-- 6 mm oval mass with circumscribed margins seen in the upper outer quadrant of the right breast. May represent an intramammary node. ?Left--Questionable prominence of a left axillary lymph node Comparisons: 12/28/2020 SCREENING TOMOSYNTHESIS BILATERAL Findings:RightThere is a benign 6 mm intramammary lymph node seen in the right breast at 9 o'clock, 5 cm from the nipple. The lymph node correlates with the prior mammogram finding. Morphologically normal-appearing lymph nodes are seen in the right axilla. There is no evidence of suspicious masses or other abnormal findings. LeftMorphologically normal-appearing lymph nodes are seen in the left axilla. There is no evidence of suspicious masses or other abnormal findings. Impression:No sonographic evidence of malignancy in either breast. Recommendation:Annual mammographic follow-up - Bilateral BI-RADS Category:Left 1 - NegativeRight 2 - Benign ?These findings and recommendations were discussed with the patient by Dr. Cobb at the conclusion of today's examination. SCREENING 2020-12- Examination:[facility] of TOMOSYNTHESIS 02 SCREENING TOMOSYNTHESIS [facility] BILATERAL 23:32:28 BILATERAL Branch History:Patient is 65 year old and is seen for: ?Screening mammogram, encounter for. Computer-aided detection (CAD) utilized. Comparisons : None available. New baseline. Findings:The breasts have scattered areas of fibroglandular density. RightThere is a 6 mm oval mass with circumscribed margins seen in the upper outer quadrant of the right breast in the middle depth, 6 cm from the nipple. LeftThere is questionable prominence of a left axillary lymph node. Otherwise, there is no evidence of suspicious masses, calcifications, or other abnormal findings in the left breast. Impression:Right-- 6 mm oval mass with circumscribed margins seen in the upper outer quadrant of the right breast in the middle depth, 6 cm from the nipple. May represent an intramammary node. Left--Questionable prominence of a left axillary lymph node. Recommendation:Ultrasou nd - Bilateral BI-RADS Category: Overall: 0 - Incomplete: Needs Additional Imaging Evaluation DEXA AXIAL (HIP 2020-12- HISTORY: TECHNIQUE: University of AND SPINE) 02 Bone density estimation T [facility] Medical 21:12:50 is done using DEXA Branch scan, over the righthip and lumbar spines. FINDINGS: Details of the results are enclosed for your review. The summaryis as follows. RIGHT HIP:BMD value is 0.971 gm/sq cm, with T-score of - 0.3. Estimated BMD in theneck is 0.853 g/sq cm with T score of -1.3. LUMBAR SPINES:Average BMD value from L1 through L4 is 1.196 gm/sq cm, with T-score 0.0. CONCLUSION: No osteoporosis or significant osteopenia detected. ASSESSMENT: WHO-definitions: T-score normal: +/- 1 SD around the meanosteopenia: >1 to 2.4 SD below the meanosteoporosis: >2.5 SD below the meanFracture risk doubles for each 1.5 SD below the mean. [facility], Radiant Results Inft User - 12/28/2020 3:13 PM CSTHISTORY: TECHNIQUE: Bone density estimation is done using DEXA scan, over the righthip and lumbar spines.FINDINGS: Details of the results are enclosed for your review. The summaryis as follows.RIGHT HIP:BMD value is 0.971 gm/sq cm, with T-score of - 0.3. Estimated BMD in theneck is 0.853 g/sq cm with T score of -1.3.LUMBAR SPINES:Average BMD value from L1 through L4 is 1.196 gm/sq cm, with T-score 0.0.CONCLUSION: No osteoporosis or significant osteopenia detected.ASSESSMENT: WHO-definitions: T-scorenormal: +/- 1 SD around the meanosteopenia: >1 to 2.4 SD below the meanosteoporosis: >2.5 SD below the meanFracture risk doubles for each 1.5 SD below the mean.
--- NOTE | 2021-10-24 23:55 | ER ---
Nurse's Notes [facility] Name: Kecia Schilling Age: 66 yrs Sex: Female : 1955 Arrival Date: 10/24/2021 Time: 19:29 Bed Waiting Private MD: Lizzette Guerrero R Diagnosis: Presentation: 10/24 19:37 Chief complaint: Patient states: L sided CP/back/shoulder/L arm pain 40 min SHEEP BONER. SOB ll1 when pain was bad. Coronavirus screen: Vaccine status: Patient reports receiving the 2nd dose of the covid vaccine. Client denies travel out of the [place] in the last 14 days. At this time, the client does not indicate any symptoms associated with coronavirus-19. Ebola Screen: Patient denies travel to an Ebola-affected area in the 21 days before illness onset. Initial Sepsis Screen: Does the patient meet any 2 criteria? No. Patient's initial sepsis screen is negative. Does the patient have a suspected source of infection? No. Patient's initial sepsis screen is negative. Risk Assessment: Do you want to hurt yourself or someone else? Patient reports no desire to harm self or others. Onset of symptoms was October 24, 2021. 19:37 Method Of Arrival: Ambulatory ll1 19:37 Acuity: RISSA 3 ll1 Historical: - Allergies: 19:38 Codeine; pt reports it causes nausea; ll1 19:38 Iodine; ll1 - Home Meds: 19:38 vitamin E 400 unit Oral cap three times a day [Active]; ll1 - PMHx: 19:38 Hyperlipidemia; trigeminal neuralgia; Hypothyroidism; Hypertension; Chronic pain; ll1 "allergies-severe"; mitral valve prolapse; edema R leg occasionally; neck pain; - PSHx: 19:38 hysterectomy; Tonsillectomy; ll1 19:40 Appendectomy; ll1 - Immunization history:: Client reports receiving the 2nd dose of the Covid vaccine, Flu vaccine is up to date. - Social history:: Smoking status: Patient reports the use of cigarette tobacco products, smokes one-half pack cigarettes per day. Vital Signs: 19:37 BP 161 / 89; Pulse 88; Resp 17; Temp 98.1; Pulse Ox 100% ; Height 5 ft. 4 in. (162.56 ll1 cm); Pain 6/10; ED Course: 19:29 Patient arrived in ED. mr 19:29 Lizzette Guerrero MD is Private Physician. mr 19:38 Triage completed. ll1 19:40 Arm band placed on. ll1 21:47 Nimesh Vázquez MD is Attending Physician. pkl 23:54 Patient's name was called from ER lobby. No response. Unable to locate patient. Will bb disposition as left without being seen by a provider. Administered Medications: No medications were administered Outcome: 23:54 Patient left the ED. bb Signatures: Nimesh Vázquez MD MD pkl Kady Torres Brittanie Sanchez, RN RN bb Gabby Murcia RN RN ll
[2021-10-25 00:15] VITALS: BP 161/89; TEMP 98.1; O2SAT 100
== END 2021-10-24 23:54 | disposition left against medical advice (07) ==
LOC: ER 19:28
DX: Z53.21 Procedure and treatment not carried out due to patient leaving prior to being seen by health care provider (principal)
CPT/HCPCS: 93005; 99281

== ENCOUNTER 2022-03-14 16:18 | Inpatient (IN) | payer OTHER ==
--- OUTSIDE RECORDS SUMMARY | 2022-03-14 16:21 | XMS REPORT | Continuity of Care Document ---
:1955 Author Organization [facility] t Address [address] [place] [address] Care Team Providers Name Role Phone ANA Primary Care Physician Unavailable UNKNOWN Attending Clinician Unavailable Unknown Attending Clinician Unavailable Ed Attending Clinician Unavailable Yg GARCIA, B Attending Clinician Unavailable JOHN Attending Clinician Unavailable ANA Admitting Clinician Unavailable Ed Admitting Clinician Unavailable Payers Payer Name Policy Type Policy Number Effective Date Expiration Date S [facility] MEDICARE PART A \\T\\ [id number] 2019 B 00:00:00 [place] [id number] 2019 BENEFITS 00:00:00 Problems Condition Condition Condition Status Onset Resolution Last Treating Co mments Source Name Details Category Date Date Treatment Clinician Date Pulmonary Pulmonary Disease Active Uni vers hypertensi hypertensi 1-04 it y of on on 00:00: [place] 00 Medical Branch Persistent Persistent Disease Active U nivers atrial atrial 1-03 ity of fibrill[place] Coronary Coronary Disease Active Unive rs artery artery 1-03 ity of disease disease 00:00: [place] involving involving 00 Medi brian chitimacha chitimacha Branch coronary coronary artery of artery of chitimacha chitimacha heart with heart with angina angina pectoris pectoris Essential Essential Disease Active Uni vers hypertensi hypertensi 1-03 it y of on on 00:00: [place] [address] Medical Branch Dyslipidem Dyslipidem Disease Active U nivers ia ia 1-03 ity of 00:00: [place] [address] Medical Branch Elevated Elevated Disease Active Unive rs brain brain -03 ity of natriureti natriureti [place] c peptide c peptide 00 Medi brian (BNP) (BNP) Branch level level (HFpEF) (HFpEF) Disease Active Univers heart heart 03 ity of failure failure 00:00: [place] with with 00 Medical preserved preserved Bran ch ejection ejection fraction fraction Atypical Atypical Disease Active Unive rs chest pain chest pain -18 it y of 00:00: [address] Branch Obesity Obesity Disease Active Univers (BMI (BMI 1-18 ity of 30-39.9) 30-39.9) 00:00: [address] Acute pain Acute pain Diagnosis Active Common of left of left Spirit wrist wrist - [facility] Closed Closed Problem Active Common torus torus [facility] fracture fracture - [facility] of distal of distal St end of end of [facility], radius, [place] initial initial encounter encounter Torus Torus Diagnosis Active Common fracture fracture Spirit of lower of lower - [facility] end of end of [facility] radius, radius, [facility] subsequent subsequent Ce nter encounter encounter for for fracture fracture with with routine routine healing healing Encounter Encounter Problem Active Com mon for other for other Spir it orthopedic orthopedic - [facility] aftercare aftercare [facility] Allergies, Adverse Reactions, Alerts Allergy Allergy Status Severity Reaction(s) Onset Inactive Treating Comm ents Source Name Type Date Date Clinician iodine DA Active U [facility] 00:00: [address] codeine DA Active U [facility] 00:00: [address] Codeine Propensi Active Nausea Univers ty to and/or 1-18 ity of adverse Vomiting 00:00: [place] reaction [facility] Iodine Propensi Active Anaphylaxis Uni vers ty to 1-18 ity of adverse 00:00: [place] reaction [facility] CODEINE DRUG Active N/V Univers INGREDI 1-18 ity of 00:00: [place] [facility] IODINE DRUG Active Anaphylaxis Unive rs INGREDI 18 ity of 00:00: [place] 00 Medical Branch codeine Adverse Active nausea and Comm on Reaction vomiting Spirit - [facility] Social History Social Habit Start Date Stop Date Quantity Comments Source Exposure to Not sure [facility] SARS-CoV-2 [facility] (event) Branch Alcohol intake 2021-12-28 2021-12-28 Current [facility] 00:00:00 00:00:00 non-drinker of [facility] alcohol [place] (finding) Education 2021-10-31 2021-10-31 21 University of 00:00:00 00:00:00 [facility] Tobacco use and 2021-10-31 2021-10-31 Never used Universit y of exposure 00:00:00 00:00:00 [facility] Sex [birth year] Universit y of 00:00:00 00:00:00 [facility] Smoking Status Start Date Stop Date Source Light tobacco smoker 2021-10-31 00:00:00 Univers ity of [facility] Medications Ordered Filled Start Stop Current Ordering Indication Dosage Frequency Signature Comments Components Source Medication Medication Date Date Medication? Clinician (SIG) Name Name furosemide 2021- No [id number] 40mg Take 1 Univers 40 mg 11-02- tablet by ity of tablet 00:00: 05:59 mouth [place] 00 :00 daily for Medical 30 days. Branch levothyroxi 2021- No [id number] 137ug Take 1 Univers ne 137 mcg 11-02-05 tablet by ity of tablet 00:00: 05:59 mouth [place] 00 :00 every Medical morning Branch for 30 days. rivaroxaban 2021- No [id number] 20mg Take 1 Uni vers 20 mg 11-02-05 tablet by ity of tablet 00:00: 05:59 mouth [place] 00 :00 daily for Medical 30 days. Branch Indication s: atrial fibrillati on aspirin 81 2021- No [id number] 81mg Take 1 Univers mg chewable 11-02-05 tablet by it y of tablet 00:00: 05:59 mouth [place] 00 :00 daily for Medical 30 days. Branch hydroCHLORO 2021- No [id number] 25mg Take 1 Univers thiazide 25 1-05 02-05 tablet by it y of mg tablet 00:00: 05:59 mouth [place] 00 :00 daily for Medical 30 days. Branch pantoprazol 2021- No [id number] 40mg Take 1 Univers e 40 mg EC 11-02 tablet by ity of tablet 00:00: 05:59 mouth [place] 00 :00 daily for Medical 30 days. Branch albuterol Yes 2{puff} Inhale 2 U nivers (VENTOLIN 1-04 Puffs ity of HFA) 90 15:16: every 6 [place] mcg/actuati 26 (six) Medical on inhaler hours as Branc h needed for Wheezing or Shortness of Breath. acyclovir Yes 400mg Take 400 Uni vers 400 mg 1-04 mg by ity of tablet 15:16: mouth. [place] Medical Branch atenolol 50 Yes 100mg Take 100 U nivers mg tablet 1-04 mg by ity of 15:16: mouth [place] 26 daily. Medical Branch atorvastati Yes 40mg Take 40 mg Univers n 40 mg 1-04 by mouth ity of tablet 15:16: at [place] bedtime. Medical Branch buPROPion Yes 150mg 150 mg 2 Uni vers XL 150 mg 1-04 (two) ity of 24 hr 15:16: times [place] tablet 26 daily. Medical Branch omega Yes Take by Univers 3-dha-epa-f 1-04 mouth. ity of ramo oil 15:16: [place] (FISH OIL) Medical 300-108-162 Branch -600 mg CpDR Fluticasone Yes Inhale. Uni vers Propionate 1-04 ity of 100 15:16: [place] mcg/actuati 26 Medical on Branch inhalation disk HYDRALAZINE Yes 75mg Take 75 mg Univers HCL 1-04 by mouth 3 ity of (HYDRALAZIN 15:16: (three) [place] E ORAL) 26 times Medical daily. Branch losartan-hy Yes 1{tbl} Take 1 Un shelly drochloroth 1-04 tablet by ity of iazide 15:16: mouth [place] 100-25 mg 26 daily. Medical per tablet Branch loratadine Yes 10mg Take 10 mg U nivers (CLARITIN) 1-04 by mouth ity o f 10 mg 15:16: daily. [place] tablet Medical Branch albuterol Yes 2{puff} Inhale 2 U nivers (VENTOLIN 1-04 Puffs ity of HFA) 90 15:16: every 6 [place] mcg/actuati 26 (six) Medical on inhaler hours as Branc h needed for Wheezing or Shortness of Breath. acyclovir Yes 400mg Take 400 Uni vers 400 mg 1-04 mg by ity of tablet 15:16: mouth. Medical Branch atenolol 50 Yes 100mg Take 100 U nivers mg tablet 1-04 mg by ity of 15:16: mouth [place] [address] daily. Medical Branch atorvastati Yes 40mg Take 40 mg Univers n 40 mg 1-04 by mouth ity of tablet 15:16: at [place] [address] bedtime. Medical Branch buPROPion Yes 150mg 150 mg 2 Uni vers XL 150 mg 1-04 (two) ity of 24 hr 15:16: times [place] tablet 26 daily. Medical Branch omega Yes Take by Univers 3-dha-epa-f 1-04 mouth. ity of ramo oil 15:16: [place] (FISH OIL) Medical 300-108-162 Branch -600 mg CpDR Fluticasone Yes Inhale. Uni vers Propionate 1-04 ity of 100 15:16: [place] mcg/actuati Medical on Branch inhalation disk HYDRALAZINE Yes 75mg Take 75 mg Univers HCL 1-04 by mouth 3 ity of (HYDRALAZIN 15:16: (three) [place] E ORAL) 26 times Medical daily. Branch losartan-hy Yes 1{tbl} Take 1 Un shelly drochloroth 1-04 tablet by ity of iazide 15:16: mouth [place] 100-25 mg 26 daily. Medical per tablet Branch loratadine Yes 10mg Take 10 mg U nivers (CLARITIN) 1-04 by mouth ity o f 10 mg 15:16: daily. [place] tablet 26 Medical Branch gabapentin 2021- No [id number] 300mg Take 1 Univers 300 mg 1-04 02-04 capsule by ity of capsule 00:00: 05:59 mouth 2 [place] 00 :00 (two) Medical times Branch daily for 30 days. Tramadol Tramadol Yes Rc not Commo n HCl HCl Elias defined [facility] HydrALAZINE HydrALAZINE Yes Cr not Common HCl HCl Elias defined [facility] Atenolol Atenolol Yes Rc not Commo n Elias defined [facility] Ranitidine Ranitidine Yes Rc not C ommon Elias defined [facility] Fish Oil Fish Oil Yes Rc not Commo n Elias defined [facility] Atorvastati Atorvastati Yes Rc not Common n Calcium n Calcium Elias defined [facility] Vitamin E Vitamin E Yes Rc not Com mon Elias defined [facility] Losartan Losartan Yes Rc not Commo n Potassium-H Potassium-H Elias defined [facility] potassium Yes Rc not Com mon Elias defined [facility] Oscal Oscal Yes Rc not Common 500/200 D-3 500/200 D-3 Elias defined [facility] Aspirin 81 Aspirin 81 Yes Rc not C zhangmon Elias defined [facility] Alprazolam Alprazolam Yes Rc not C ommon Elias defined [facility] BuPROPion BuPROPion Yes Rc not Com mon HCl ER (SR) HCl ER (SR) Elias defined [facility] Acyclovir Acyclovir Yes Rc not Com mon Elias defined [facility] Fluticasone Fluticasone Yes Rc not Common Propionate Propionate Elias defined [facility] Mucinex Mucinex Yes Rc not Common Griffin defined [facility] Furosemide Furosemide Yes Rc not C ommon Elias defined [facility] Ventolin Ventolin Yes Rc not Commo n HFA HFA Elias defined [facility] Levothyroxi Levothyroxi Yes Rc not Common ne Sodium ne Sodium Elias defined [facility] Gabapentin Gabapentin Yes Rc not C ommon Griffin defined [facility] Procedures Procedure Date / Time Performed Performing Clinician Sour e CONSENT/REFUSAL FOR 2021-12-28 19:24:08 Doctor Unassigned, No [facility] DIAGNOSIS AND Name Medical Branch TREATMENT ASSIGNMENT OF BENEFITS 2021-12-28 19:23:22 Doctor Unassigned, No [facility] Name Medical Branch Encounters Start End Encounter Admission Attending Care Care Encounter Source Date/Time Date/Time Type Type Clinicians Facility Department ID 2021-12-28 2021-12-28 Outpatient R UNKNOWN, [facility] [id number] Univers 13:25:12 23:59:00 ATTENDING ity of [facility] 2021-12-28 2021-12-28 Hospital Unknown, [facility] [id number] Univers 13:25:12 23:59:00 Encounter Attending ANUSHKA [id number] nehaly lakes[place]ia [place] [id number] [id number] [facility] 800 Branch 2021-12-28 2021-12-28 Outpatient R [facility] [id number] Univers 14:00:00 14:00:00 [id number] ity of [facility] 2021-11-12 2021-11-13 Inpatient SHAUN SalWMoraima TELE [id number] [facility] 10:15:00 12:00:00 Johana [id number] [facility] 2021-11-12 2021-11-13 Inpatient JARRED Sal TELE [id number] 84 [facility] 10:15:00 12:00:00 Johana 19 [facility] 2021-11-02 2021-11-02 Transition OMAR Ronquillo [id number] Univers 00:00:00 00:00:00 of Care Missy VILLATORO [id number] it y of [id number] [id number] [facility] 403 Branch 2021-08-09 2021-08-09 [facility] [id number] [place] 00:00:00 00:00:00 CIERA Rivera [facility] 2021-08-09 2021-08-09 Outpatient LOPEZ, [facility] [id number] [place] 00:00:00 00:00:00 CIERA Maurer [facility] 2018-12-26 2018-12-26 Outpatient Yadira Culver [id number] Common 10:30:00 10:30:00 [facility] 2018-11-29 2018-11-29 Outpatient Yadira Culver [id number] Common 09:30:00 09:30:00 [facility] 2018-10-25 2018-10-25 Outpatient Yadira Culver 23 [id number] Common 10:00:00 10:00:00 [facility] Results Test Description Test Time Test Comments Results Result Comments Source TSH REFLEX TO FREE T4 2022-01-19 09:04:01 Test Item Value Reference Range Interpretation Comme nts TSH REFLEX TO FREE T4 2.830 UIU/ML 0.400-4.100 UNLESS OTHERWISE (test code = 2834) INDICATED , ALL TESTING PERFORMED AT[facility], [place] [address] LABORATORY DIRE CTOR: DENNY ROBERT M.D. CLIA NUMBER [id number] [facility] [place] [id number] LIPID [id number] 06:18:21 Test Item Value Reference Range Interpretation Comments CHOLESTEROL (test 135 MG/DL <200 code = 2210) TRIGLYCERIDES (test 189 MG/DL <150 H code = 2232) HDL CHOLESTEROL (test 46 MG/DL >39 code = 2220) CALC LDL CHOL (test 63 MG/DL <100 NOTE: C ALCULATED LDL code = 2237) IS BASED ON PAULINA-BRUNO METHOD WHICHINCLUDES ADJUSTABLE TRIGLYCERIDE:VL DL CHOLESTEROL RAT IO.THIS FACTOR VARIES B Y MEASURED TRIGLY CERIDE AND NON-HDLCHOL ESTEROL CONCENTRATIONS WITH INCREASED CALCU LATED LDL SEENIN HIGH ER TRIGLYCERIDE OR LOWER NON-HDL SPECIME NS. FOR MOREINFORMATION , SEE CLIENT ANNOUNCE MENT AT [email or web address] RATIO LDL/HDL 1.37 RATIO <3.22 (test code = 2238) COMPREHENSIVE METABOLIC [id number] 06:18:21 Test Item Value Reference Range Interpretation Comments GLUCOSE (test code = 106 MG/DL 70-99 H 2216) BUN (test code = 11 MG/DL 8-23 2207) CREATININE (test 0.83 MG/DL 0.60-1.30 code = 221) eGFR (2020 CKD-EPI) 77 ML/MIN/1.73 >60 (test code = 51393) CALC BUN/CREAT (test 13 RATIO 6-28 code = 2235) SODIUM (test code = 134 MEQ/L 721-792 7296) POTASSIUM (test code 3.3 MEQ/L 3.5-5.4 L = 2227) CHLORIDE (test code 92 MEQ/L 95-107 L = 2214) CARBON DIOXIDE (test 27 MEQ/L 19-31 code = 220) CALCIUM (test code = 9.7 MG/DL 8.5-10.5 2208) PROTEIN, TOTAL (test 7.4 G/DL 6.1-8.3 code = 2228) ALBUMIN (test code = 4.6 G/DL 3.5-5.2 2200) CALC GLOBULIN (test 2.8 G/DL 1.9-3.7 code = 2240) CALC A/G RATIO (test 1.6 RATIO 1.0-2.6 code = 2234) BILIRUBIN, TOTAL 0.5 MG/DL See_Comment [Automated message] (test code = 220) The syste m which generated this result transmit rudy reference range : <=1.2. The refe rence range was not u sed to interpret th is result as normal/abnormal . ALKALINE PHOSPHATASE 64 U/L 40-142 (test code = 2204) AST (test code = 23 U/L 9-40 2217) ALT (test code = 26 U/L 5-40 2218) CBC W/AUTO DIFF WITH [id number] 05:19:22 Test Item Value Reference Range Interpretation Comments WBC (test code = 8.3 K/UL 3.5-11.0 1001) RBC (test code = 3.93 M/UL 3.80-5.40 1002) HEMOGLOBIN (test code 12.7 G/DL 11.5-15.5 = 1003) HEMATOCRIT (test code 35.6 % 34.0-45.0 = 1004) MCV (test code = 90.6 fL 80.0-99.0 1005) MCH (test code = 32.3 PG 25.0-33.0 1006) MCHC (test code = 35.7 G/DL 31.0-36.0 1007) RDW (test code = 12.5 % 11.5-15.0 1038) NEUTROPHILS (test 58.5 % code = 1008) LYMPHOCYTES (test 22.5 % code = 1010) MONOCYTES (test code 12.2 % = 1011) EOSINOPHILS (test 5.4 % code = 1012) BASOPHILS (test code 1.2 % = 1013) IMMATURE GRANULOCYTES 0.2 % (test code = 1036) NUCLEATED RBCS (test 0.0 /100 See_Comment [Autom ated code = 1065) WBC'S message] The sy stem which generated this result transmitted reference range : 0.0. The refere nce range was not u sed to interpret th is result as normal/abnormal . PLATELET COUNT (test 359 K/UL 130-400 code = 1015) ABSOLUTE NEUTROPHILS 4.84 K/UL 1.50-7.50 (test code = 1066) ABSOLUTE LYMPHOCYTES 1.86 K/UL 1.00-4.00 (test code = 1067) ABSOLUTE MONOCYTES 1.01 K/UL 0.20-1.00 H (test code = 1068) ABSOLUTE EOSINOPHILS 0.45 K/UL 0.00-0.50 (test code = 1040) ABSOLUTE BASOPHILS 0.10 K/UL 0.00-0.20 (test code = 1069) ABS IMMATURE 0.02 K/UL 0.00-0.10 GRANULOCYTES (test code = 1020) ABS NUCLEATED RBCS 0.00 K/UL 0.00-0.11 (test code = 27815) CBC W/AUTO [id number] 06:20:00 Test Item Value Reference Range Interpretation Comments WHITE BLOOD CELL (test code = 16.0 K/MM3 3.8-9.8 H WBC) RED BLOOD CELL (test code = 3.90 M/MM3 3.58-4.97 N RBC) HEMOGLOBIN (test code = HGB) 12.8 G/DL 11.2-14.9 N HEMATOCRIT (test code = HCT) 37.8 % 33.2-43.5 N MEAN CELL VOLUME (test code = 97 fL 80.7-99.1 N MCV) MEAN CELL HGB (test code = MCH) 32.8 pg 27.0-34.1 N MEAN CELL HGB CONCETRATION 33.9 % 32.2-35.7 N (test code = MCHC) RED CELL DISTRIBUTION WIDTH 12.4 % 12.1-15.2 N (test code = RDW) PLATELET COUNT (test code = 414 K/MM3 129-368 H PLT) MEAN PLATELET VOLUME (test code 9.5 fl 7.4-10.4 N = MPV) NEUTROPHIL % (test code = NT%) 74.3 % 43-75 N IMMATURE GRANULOCYTE % (test 0.6 % 0.0-2.0 N code = IG%) LYMPHOCYTE % (test code = LY%) 12.3 % 14-44 L MONOCYTE % (test code = MO%) 11.5 % 4-13 N EOSINOPHIL % (test code = EO%) 0.8 % 0-6 N BASOPHIL % (test code = BA%) 0.5 % 0-2 N NUCLEATED RBC % (test code = 0.0 % 0-1.0 N NRBC%) NEUTROPHIL # (test code = NT#) 11.92 K/mm3 2.0-7.6 H IMMATURE GRANULOCYTE # (test 0.09 x10 3/uL 0-0.03 H code = IG#) LYMPHOCYTE # (test code = LY#) 1.98 K/mm3 1.0-3.8 N MONOCYTE # (test code = MO#) 1.84 K/mm3 0.1-0.8 H EOSINOPHIL # (test code = EO#) 0.13 K/mm3 0.0-0.2 N BASOPHIL # (test code = BA#) 0.08 K/mm3 0.0-0.2 N NUCLEATED RBC # (test code = 0.00 K/mm3 0.0-0.1 N NRBC#) BASIC METABOLIC [id number] 06:16:00 Test Item Value Reference Range Interpretation Comments SODIUM (test code = 134 MMOL/L 137-145 L NA) POTASSIUM (test code = 3.6 MMOL/L 3.5-5.1 N K) CHLORIDE (test code = 98 MMOL/L 98-107 N CL) CARBON DIOXIDE (test 31 MMOL/L 22-30 H code = CO2) GLUCOSE (test code = 114 MG/DL 74-106 H GLU) BLOOD UREA NITROGEN 13 MG/DL 7-17 N (test code = BUN) GLOMERULAR FILTRATION > 60 Report ing units: RATE (test code = GFR) ml/mi n/1.73 m2 (Modified MDRD Formula)Referen ce Range: > or = 6 0 ml/min/1.73 m2 CREATININE (test code 0.80 MG/DL 0.52-1.04 N = CREAT) CALCIUM (test code = 9.0 MG/DL 8.4-10.2 N CA) [id number] 10:01:00 Test Item Value Reference Range Interpretation Comments ACT-ISTAT (test code = ACTI) 279 SEC 74-137 H [id number] 06:20:00 Test Item Value Reference Range Interpretation Comments MAGNESIUM (test code = MAG) 1.9 MG/DL 1.6-2.3 N BASIC METABOLIC [id number] 06:20:00 Test Item Value Reference Range Interpretation Comments SODIUM (test code = 137 MMOL/L 137-145 N NA) POTASSIUM (test code = 3.4 MMOL/L 3.5-5.1 L K) CHLORIDE (test code = 97 MMOL/L 98-107 L CL) CARBON DIOXIDE (test 34 MMOL/L 22-30 H code = CO2) ANION GAP (test code = 9 MMOL/L 14-24 L GAP) GLUCOSE (test code = 119 MG/DL 74-106 H GLU) BLOOD UREA NITROGEN 18 MG/DL 7-17 H (test code = BUN) GLOMERULAR FILTRATION > 60 Report ing units: RATE (test code = GFR) ml/mi n/1.73 m2 (Modified MDRD Formula)Referen ce Range: > or = 6 0 ml/min/1.73 m2 CREATININE (test code 0.90 MG/DL 0.52-1.04 N = CREAT) CALCIUM (test code = 10.0 MG/DL 8.4-10.2 N CA) LIPID PROFILE (CORONARY RISK)2021-11-12 06:20:00 Test Item Value Reference Range Interpretation Comments TRIGLYCERIDES (test 204 MG/DL 150-199 H TRIGLYCE RIDES code = TRIG) REFERENCE RANGE:Normal: < 150 mg/dLBorderline High: 150-199 mg/dLHi gh: 200-499 mg/dLVe ry High: >=500 mg/ dL CHOLESTEROL (test code 138 MG/DL <200 = CHOL) HDL CHOLESTEROL (test 36 MG/DL 40-59 L code = HDL) LIPOPROTEIN LDL (test 57 MG/DL 0-99 N code = LDL) OPTIMAL........ .<100 mg/dLNEAR OPTIMAL/ABOVE OPTIMAL........ .100-12 9 mg/dL BORDERLINE HIGH.........13 0-159 mg/dL HIGH.........16 0-189 mg/dL VERY HIGH...... ...>/= 190 mg/dL CBC W/AUTO [id number] 06:18:00 Test Item Value Reference Range Interpretation Comments WHITE BLOOD CELL (test code = 10.2 K/MM3 3.8-9.8 H WBC) RED BLOOD CELL (test code = 4.27 M/MM3 3.58-4.97 N RBC) HEMOGLOBIN (test code = HGB) 13.7 G/DL 11.2-14.9 N HEMATOCRIT (test code = HCT) 39.4 % 33.2-43.5 N MEAN CELL VOLUME (test code = 92 fL 80.7-99.1 N MCV) MEAN CELL HGB (test code = MCH) 32.1 pg 27.0-34.1 N MEAN CELL HGB CONCETRATION 34.8 % 32.2-35.7 N (test code = MCHC) RED CELL DISTRIBUTION WIDTH 12.2 % 12.1-15.2 N (test code = RDW) PLATELET COUNT (test code = 439 K/MM3 129-368 H PLT) MEAN PLATELET VOLUME (test code 9.8 fl 7.4-10.4 N = MPV) NEUTROPHIL % (test code = NT%) 57.2 % 43-75 N IMMATURE GRANULOCYTE % (test 0.4 % 0.0-2.0 N code = IG%) LYMPHOCYTE % (test code = LY%) 24.1 % 14-44 N MONOCYTE % (test code = MO%) 13.3 % 4-13 H EOSINOPHIL % (test code = EO%) 3.9 % 0-6 N BASOPHIL % (test code = BA%) 1.1 % 0-2 N NUCLEATED RBC % (test code = 0.0 % 0-1.0 N NRBC%) NEUTROPHIL # (test code = NT#) 5.81 K/mm3 2.0-7.6 N IMMATURE GRANULOCYTE # (test 0.04 x10 3/uL 0-0.03 H code = IG#) LYMPHOCYTE # (test code = LY#) 2.45 K/mm3 1.0-3.8 N MONOCYTE # (test code = MO#) 1.35 K/mm3 0.1-0.8 H EOSINOPHIL # (test code = EO#) 0.40 K/mm3 0.0-0.2 H BASOPHIL # (test code = BA#) 0.11 K/mm3 0.0-0.2 N NUCLEATED RBC # (test code = 0.00 K/mm3 0.0-0.1 N NRBC#) PROTHROMBIN [id number] 06:11:00 Test Item Value Reference Range Interpretation Comments PROTHROMBIN TIME 12.0 SECONDS 9.5-12.7 N PATIENT (test code = PTP) INTERNATIONAL NORMAL 1.1 0.86-1.14 N The INR is to be RATIO (test code = used only for INR) monitoring oral anticoagulantth erap y. INDICATION I NR VALUE ---- ---- ---- -------1. Prophylaxis, de ep venous thrombos is, including hig h risk surgery. 2.0 - 3.0 2. Prophylaxis, de ep venous thrombos is, hip surgery, treatment for d eep venous thrombosis or pulmonary prevention of systemic emboli sm in patients wit h valvular heart disease, atrial fibrillation, tissue heart va lve, or acute myocar dial infarction. 2.0 - 3 .0 3. Mechanical prosthesis hear t valves, recurrent syste teo embolism. 3.0 - 4.5 PTT [id number] 06:11:00 Test Item Value Reference Range Interpretation Comments PTT ACTIVATED (test code = APTT) 32.9 SECONDS 25.1-36.5 N COVID 19 Asymptomatic IH [id number] 05:04:00 Test Item Value Reference Range Interpretation Comments COVID 19 NEGATIVE Negative "Negative resul ts from Asymptomatic IH AG patients with symptom (test code = onset beyondfiv e days, COVNONPUIAG) should be juan urdy as presumptive, andconfirmation with a molecular assay , if necessary forpa tient management may be performed. Nega tive results do notr ule out COVID-19 and sh ould not be used as the sole basisfor treatm ent or patient managem ent decisions, includinginfect ion control decisio ns. Negative result s should beconsidered in the context of a pa tients recent exposure s,history, and the presenc e of clinical signs and symptomsconsist ent with COVID-19.This t est detects both vi able andnon-viable S ARS-CoV and SARS CoV-2. Test performance dep endson the amount of virus (antigen) in the sample." Spec Comments: PRE-OP
[2022-03-14 17:14] LABS: Absolute Lymphocytes (CBC) 1.3 K/uL (0.7-4.9); Lymphocytes % 13.7 % (15.3-44.8); MPV 6.9 fL (7.6-11.3); RBC Red Blood Cell Count 3.56 M/uL (3.86-4.86)
[2022-03-14 17:31] LABS: Albumin 3.6 g/dL (3.4-5.0); Bilirubin Total 0.6 mg/dL (0.2-1.0); Potassium 3.3 mmol/L (3.5-5.1); Protein, Total 7.4 g/dL (6.4-8.2)
[2022-03-14] MEDS ORDERED: HYDROMORPHONE HCL 0.5 MG/0.5 ML INJ ONE (17:50)
[2022-03-14] MEDS ORDERED: ONDANSETRON 4 MG/2 ML VIAL ONE (17:50)
[2022-03-14] MEDS ORDERED: NA CHLORIDE 0.9% 500 ML ONE (17:50)
--- NOTE | 2022-03-14 18:04 | RAD REPORT ---
EXAM DESCRIPTION: CT - CTHCSPWOC - 03/14/2022 5:41 pm CLINICAL HISTORY: Trauma, head and neck injury. fall COMPARISON: SPINE CERVICAL AP LAT dated 05/07/2013 TECHNIQUE: Axial 5 mm thick images of the head were obtained. Axial 2 mm thick images of the cervical spine were obtained with sagittal and coronal reconstruction images generated and reviewed. All CT scans are performed using dose optimization technique as appropriate and may include automated exposure control or mA/KV adjustment according to patient size. FINDINGS: CT HEAD WITHOUT CONTRAST: No acute hemorrhage, hydrocephalus or extra-axial collection is identified.No areas of brain edema or midline shift. The paranasal sinuses and mastoids are clear.The calvarium is intact. CT CERVICAL SPINE WITHOUT CONTRAST: No fracture or subluxation.Lower cervical degenerative changes present with hardware in place spannin g C7 and T1.No prevertebral soft tissues swelling is identified. IMPRESSION: No acute intracranial or cervical spine findings.
--- NOTE | 2022-03-14 18:07 | RAD REPORT ---
EXAM DESCRIPTION: RAD - Hand Right 3 View - 03/14/2022 5:30 pm CLINICAL HISTORY: PAIN COMPARISON: No comparisons FINDINGS: There is a large amount of soft tissue swelling along the dorsum of the hand. No acute fra cture or dislocation.
[2022-03-14] MEDS ORDERED: HYDROMORPHONE HCL 1 MG/ML INJ ONE ×2 (18:55→22:54)
--- NOTE | 2022-03-14 19:23 | EDPHYS ---
Physician Documentation [facility] Name: Kecia Schilling Age: 66 yrs Sex: Female : 1955 Arrival Date: 03/14/2022 Time: 16:20 Bed 24 Private MD: Lizzette Guerrero R ED Physician Felix Lopez HPI: 03/14 19:05 This 66 yrs old Female presents to ER via Ambulatory with complaints of Hand isacc Swelling, Hand Pain. 19:05 The patient or guardian reports decreased range of motion, pain, swelling, tenderness. isacc The complaints affect the right hand diffusely. Context: The problem was sustained at home. Onset: The symptoms/episode began/occurred 7 day(s) ago. Modifying factors: The symptoms are alleviated by. Historical: - Allergies: 16:45 Codeine; pt reports it causes nausea; ww 16:45 Iodine; ww - PMHx: 16:45 "allergies-severe"; Chronic pain; Hyperlipidemia; neck pain; trigeminal neuralgia; ww edema R leg occasionally; Hypertension; Hypothyroidism; mitral valve prolapse; - PSHx: 16:45 Appendectomy; hysterectomy; Tonsillectomy; ww - Immunization history:: Adult Immunizations up to date. - Social history:: Smoking status: Patient denies any tobacco usage or history of. ROS: 19:07 Constitutional: Negative for fever, chills, and weight loss, Eyes: Negative for injury, isacc pain, redness, and discharge, ENT: Negative for injury, pain, and discharge, Neck: Negative for injury, pain, and swelling, Cardiovascular: Negative for chest pain, palpitations, and edema, Respiratory: Negative for shortness of breath, cough, wheezing, and pleuritic chest pain, Abdomen/GI: Negative for abdominal pain, nausea, vomiting, diarrhea, and constipation, Back: Negative for injury and pain, : Negative for injury, bleeding, discharge, and swelling, Skin: Negative for injury, rash, and discoloration, Neuro: Negative for headache, weakness, numbness, tingling, and seizure, Psych: Negative for depression, anxiety, suicide ideation, homicidal ideation, and hallucinations, Allergy/Immunology: Negative for hives, rash, and allergies, Endocrine: Negative for neck swelling, polydipsia, polyuria, polyphagia, and marked weight changes, Hematologic/Lymphatic: Negative for swollen nodes, abnormal bleeding, and unusual bruising. 19:07 MS/extremity: Positive for decreased range of motion, pain, swelling, tenderness. Exam: 19:07 Constitutional: This is a well developed, well nourished patient who is awake, alert, isacc and in no acute distress. Head/Face: Normocephalic, atraumatic. Eyes: Pupils equal round and reactive to light, extra-ocular motions intact. Lids and lashes normal. Conjunctiva and sclera are non-icteric and not injected. Cornea within normal limits. Periorbital areas with no swelling, redness, or edema. ENT: Nares patent. No nasal discharge, no septal abnormalities noted. Tympanic membranes are normal and external auditory canals are clear. Oropharynx with no redness, swelling, or masses, exudates, or evidence of obstruction, uvula midline. Mucous membranes moist. Neck: Trachea midline, no thyromegaly or masses palpated, and no cervical lymphadenopathy. Supple, full range of motion without nuchal rigidity, or vertebral point tenderness. No Meningismus. Chest/axilla: Normal chest wall appearance and motion. Nontender with no deformity. No lesions are appreciated. Cardiovascular: Regular rate and rhythm with a normal S1 and S2. No gallops, murmurs, or rubs. Normal PMI, no JVD. No pulse deficits. Respiratory: Lungs have equal breath sounds bilaterally, clear to auscultation and percussion. No rales, rhonchi or wheezes noted. No increased work of breathing, no retractions or nasal flaring. Abdomen/GI: Soft, non-tender, with normal bowel sounds. No distension or tympany. No guarding or rebound. No evidence of tenderness throughout. Back: No spinal tenderness. No costovertebral tenderness. Full range of motion. Female : Normal external genitalia. Skin: Warm, dry with normal turgor. Normal color with no rashes, no lesions, and no evidence of cellulitis. Neuro: Awake and alert, GCS 15, oriented to person, place, time, and situation. Cranial nerves II-XII grossly intact. Motor strength 5/5 in all extremities. Sensory grossly intact. Cerebellar exam normal. Normal gait. Psych: Awake, alert, with orientation to person, place and time. Behavior, mood, and affect are within normal limits. 19:07 Musculoskeletal/extremity: Extremities: noted in the dorsum of right hand and palm of right hand: decreased ROM, erythema, pain, swelling, tenderness, ROM: limited active range of motion due to pain, limited passive range of motion due to pain, Circulation is intact in all extremities. Sensation intact. Compartment Syndrome exam of affected extremity: is normal. Vital Signs: 16:43 BP 126 / 73; Pulse 84; Resp 18; Temp 98.2; Pulse Ox 97% ; Weight 90.72 kg; Height 5 ft. ww 4 in. (162.56 cm); Pain 8/10; 18:50 BP 134 / 78; Pulse 68; Resp 16; Pulse Ox 96% on R/A; iw 16:43 Body Mass Index 34.33 (90.72 kg, 162.56 cm) ww MDM: 16:55 Patient medically screened. [facility] 03/14 16:56 Order name: CBC with Diff; Complete Time: 18:08 [facility] 03/14 16:56 Order name: Comprehensive Metabolic Panel; Complete Time: 18:08 [facility] 03/14 17:10 Order name: Troponin High Sensitivity; Complete Time: 18:08 [facility] 03/14 20:43 Order name: COVID-19 (Coronavirus) Document "Date of Onset" if Symptomatic mw2 03/14 20:45 Order name: COVID-19 SARS RT PCR (Document "Date of Onset" if Symptomatic) 03/15 04:06 Order name: CBC with Automated Diff [facility] 03/14 16:56 Order name: Hand Right 3 View XRAY; Complete Time: 18:08 [facility] 03/14 17:10 Order name: CT Head C Spine; Complete Time: 18:08 [facility] 03/15 04:29 Order name: Basic Metabolic Panel [facility] 03/15 04:29 Order name: Phosphorus [facility] 03/15 04:29 Order name: Lipid Profile [facility] 03/15 04:29 Order name: Magnesium [facility] 03/15 04:29 Order name: Thyroid Stimulating Hormone [facility] 03/15 04:42 Order name: T4 Free [facility] 03/14 17:10 Order name: EKG; Complete Time: 17:10 [facility] 03/14 17:10 Order name: EKG - Nurse/Tech [facility] 03/14 19:11 Order name: Ice pack; Complete Time: 19:46 isacc Administered Medications: 17:54 Drug: Dilaudid (HYDROmorphone) 0.5 mg Route: IVP; Site: left antecubital; iw 17:55 Drug: NS 0.9% 500 ml Route: IV; Rate: bolus; Site: left antecubital; iw 17:55 Drug: Zofran (Ondansetron) 4 mg Route: IVP; Site: left antecubital; iw 18:52 Drug: Dilaudid (HYDROmorphone) 0.5 mg Route: IVP; Site: left antecubital; iw 19:07 Drug: Ancef (cefazolin) 1 grams Route: IVPB; Site: left antecubital; iw 19:46 Drug: fentaNYL (PF) 25 mcg Route: IVP; Site: left forearm; fu 20:55 Drug: fentaNYL (PF) 25 mcg Route: IVP; Site: left antecubital; fu Disposition Summary: 03/14/22 19:22 Hospitalization Ordered Hospitalization Status: Observation isacc Provider: Bruno Llamas cha Condition: Stable isacc Problem: new isacc Symptoms: have improved isacc Bed/Room Type: Standard isacc Location: [facility] ER HOLD(03/14/22 20:19) cg Room Assignment: ERHOLD-(03/14/22 20:19) cg Diagnosis - Fall (on) (from) other stairs and steps - BED isacc - Contusion of right hand - LARGE -DORSAL HEMATOMA isacc - Cellulitis of other parts of limb - HAND isacc - termite treater helper (current) use of anticoagulants - ASPIRIN, XARELTO, PLAVIX isacc Forms: - Medication Reconciliation Form isacc - SBAR form isacc Signatures: Dispatcher [employer] Felix Trent MD MD cha Williams, Irene, RN RN iw Garcia, Cindy, RN RN Jim White RN RN fu Wood, Whitney, RN RN ww Corrections: (The following items were deleted from the chart) 19:22 Telemetry/MedSurg (observation) [facility] : 19:22 [facility]
--- NOTE | 2022-03-14 19:23 | ER ---
Nurse's Notes [facility] Name: Kecia Schilling Age: 66 yrs Sex: Female : 1955 Arrival Date: 03/14/2022 Time: 16:20 Bed 24 Private MD: Lizzette Guerrero R Diagnosis: Fall (on) (from) other stairs and steps-BED;Contusion of right hand-LARGE -DORSAL HEMATOMA;Cellulitis of other parts of limb-HAND;termite control technician (current) use of anticoagulants-ASPIRIN, XARELTO, PLAVIX Presentation: 03/14 16:43 Chief complaint: Patient states: Right hand swelling. Fell a week ago and hit the table ww and right hand is getting worse and swelling. Went to ER in [facility] and was told it was just a hematoma. Coronavirus screen: Client denies travel out of the [place] in the last 14 days. Ebola Screen: Patient denies travel to an Ebola-affected area in the 21 days before illness onset. Initial Sepsis Screen: Does the patient meet any 2 criteria? No. Patient's initial sepsis screen is negative. Does the patient have a suspected source of infection? No. Patient's initial sepsis screen is negative. Risk Assessment: Do you want to hurt yourself or someone else? Patient reports no desire to harm self or others. Onset of symptoms is unknown. 16:43 Method Of Arrival: Ambulatory ww 16:43 Acuity: RISSA 4 ww 17:34 Acuity: RISSA 3 iw Triage Assessment: 16:45 General: Appears uncomfortable, Behavior is cooperative. Pain: Complains of pain in ww right hand. Historical: - Allergies: 16:45 Codeine; pt reports it causes nausea; ww 16:45 Iodine; ww - PMHx: 16:45 "allergies-severe"; Chronic pain; Hyperlipidemia; neck pain; trigeminal neuralgia; ww edema R leg occasionally; Hypertension; Hypothyroidism; mitral valve prolapse; - PSHx: 16:45 Appendectomy; hysterectomy; Tonsillectomy; ww - Immunization history:: Adult Immunizations up to date. - Social history:: Smoking status: Patient denies any tobacco usage or history of. Screenin:00 Abuse screen: Denies threats or abuse. Denies injuries from another. Nutritional iw screening: No deficits noted. Tuberculosis screening: No symptoms or risk factors identified. Fall Risk IV access (20 points). Assessment: 17:30 General: Appears in no apparent distress. Pain: Complains of pain in right hand. Neuro: iw Level of Consciousness is awake, alert, obeys commands, Oriented to person, place, time, situation. Cardiovascular: Patient's skin is warm and dry. Respiratory: Respiratory effort is even, unlabored, Respiratory pattern is regular. Derm: Bruising that is dark purple, on right hand. Musculoskeletal: Swelling present in right hand. 18:40 Reassessment: pt requesting more pain medication. iw Vital Signs: 16:43 BP 126 / 73; Pulse 84; Resp 18; Temp 98.2; Pulse Ox 97% ; Weight 90.72 kg; Height 5 ft. ww 4 in. (162.56 cm); Pain 8/10; 18:50 BP 134 / 78; Pulse 68; Resp 16; Pulse Ox 96% on R/A; iw 16:43 Body Mass Index 34.33 (90.72 kg, 162.56 cm) ww ED Course: 16:20 Patient arrived in ED. am2 16:20 Lizzette Guerrero MD is Private Physician. am2 16:45 Triage completed. ww 16:45 Arm band placed on left wrist. ww 16:55 Felix Lopez MD is Attending Physician. isacc 17:05 Initial lab(s) drawn, by pa, sent to lab. Inserted saline lock: 20 gauge in left kj1 antecubital area, using aseptic technique. Blood collected. 17:32 Hand Right 3 View XRAY In Process Unspecified. EDMS 17:34 Nadiya Haley, RN is Primary Nurse. iw 17:43 CT Head C Spine In Process Unspecified. EDMS 19:11 Bruno Llamas is Hospitalizing Provider. isacc 20:00 Placed in gown. Call light in reach. Side rails up X2. Client placed on continuous fu cardiac and pulse oximetry monitoring. NIBP monitoring applied. bit sander on. Pulse ox on. 20:00 No provider procedures requiring assistance completed. fu 20:45 Patient admitted, IV remains in place. fu Administered Medications: 17:54 Drug: Dilaudid (HYDROmorphone) 0.5 mg Route: IVP; Site: left antecubital; iw 17:55 Drug: NS 0.9% 500 ml Route: IV; Rate: bolus; Site: left antecubital; iw 17:55 Drug: Zofran (Ondansetron) 4 mg Route: IVP; Site: left antecubital; iw 18:52 Drug: Dilaudid (HYDROmorphone) 0.5 mg Route: IVP; Site: left antecubital; iw 19:07 Drug: Ancef (cefazolin) 1 grams Route: IVPB; Site: left antecubital; iw 19:46 Drug: fentaNYL (PF) 25 mcg Route: IVP; Site: left forearm; fu 20:55 Drug: fentaNYL (PF) 25 mcg Route: IVP; Site: left antecubital; fu Outcome: 19:22 Decision to Hospitalize by Provider. isacc 21:07 Admitted to ER Hold. Please see [facility] for further documentation. fu 21:07 Condition: stable 21:07 Instructed on the need for admit. 03/15 10:50 Patient left the ED. Signatures: Dispatcher [employer] EDFelix Sifuentes MD MD cha Williams, Irene, RN JOSE Deisi Cruz RN RN Sadie Coto amJim Healy RN RN fu Jackson, Kandis kj1 Carmen Munoz RN JOSE hutson
[2022-03-14] MEDS ORDERED: FENTANYL CITR 100 MCG/2 ML ONE ×2 (19:45→20:55)
[2022-03-14] MEDS ORDERED: ACETAMINOPHEN 500 MG TAB PO PRN (21:03)
--- NOTE | 2022-03-14 21:49 | P.HP ---
Certification for Inpatient Patient admitted to: Inpatient With expected LOS: <2 Midnights Patient will require the following post-hospital care: None Practitioner: I am a practitioner with admitting privileges, knowledge of patient current condition, hospital course, and medical plan of care. Services: Services provided to patient in accordance with Admission requirements found in Title 42 Section 412.3 of the Code of Federal Regulations <Libby Shaver - Last Filed: 03/14/22 22:24> Patient History Date of Service: 03/14/22 Reason for admission: R Hand Cellulitus/Hematoma History of Present Illness: Patient is a 66-year-old female with past medical history of hypertension, hypothyroidism, HLD, A. fib on chronic anticoagulation, and CA who presented to the ED with complaints of right hand pain and swelling. She states that about a week ago she fell out of bed and hit her face, hand, knees and was evaluated in ED out of town and discharge. She reports that the pain and swelling has subsequently gotten worse. Labs WNL. X-ray showed soft tissue swelling. Dorsum of R hand swollen and tender with cellulitus and possible abscess. June agreed to consult. Given Dilaudid, Zofran, and Ancef in the ED. Will admit patient for further evaluation and treatment. Home medications list reviewed: Yes - Past Medical/Surgical History Diabetic: No -: Hypertension -: Hypothyroid -: trigeminal neuralgia -: mitral valve prolapse -: hyperlipidemia -: seasonal allergies year round -: edema lower leg -: neck pain -: electrolye imbalance 01/14 -: hysterectomy -: Appendectomy -: Carpal Tunnel Release Psychosocial/ Personal History: Patient is and lives at home with her . - Family History Father -: Heart disease Mother -: Hypertension, Liver disease (Hepatitis C) - Social History Smoking Status: Former smoker Alcohol use: No CD- Drugs: No Caffeine use: Yes Place of Residence: Home <Macy Shaveria - Last Filed: 03/14/22 22:24> Date of Service: 03/16/22 <Woody Tamez - Last Filed: 03/16/22 07:27> Allergies codeine Allergy (Verified 03/14/22 21:02) Hives/Rash iodine Allergy (Verified 03/14/22 21:02) Hives/Rash Home Medications: Albuterol Inhaler [Ventolin Inhaler*] 2 inh IH Q6HP PRN 01/05/19 Aspirin 81 mg PO DAILY 01/05/19 Atorvastatin Calcium [Lipitor] 40 mg PO DAILY 01/05/19 Bupropion *Xl* [Wellbutrin XL*] 150 mg PO BID 01/05/19 Docosahexanoic AC/Epa [Fish Oil 1,000 MG*] 1 tab PO DAILY 01/05/19 Fluticasone Furoate [Arnuity Ellipta] 1 spray ALE DAILY 01/05/19 Furosemide [Lasix*] 40 mg PO DAILY 01/05/19 Gabapentin 300 mg PO BID 01/05/19 Gabapentin 600 mg PO TID 01/05/19 Hydralazine HCl [Apresoline] 100 mg PO TID 01/05/19 Levothyroxine Sodium [Unithroid] 175 mcg PO DAILY 01/05/19 Loratadine [Claritin*] 10 mg PO DAILY 01/05/19 Losartan/Hydrochlorothiazide [Losartan-Hctz 100-25 mg Tab] 1 tab PO DAILY 01/05/19 Vitamin E 180 mg PO BID 01/05/19 atenoloL [Atenolol] 100 mg PO DAILY 01/05/19 Acyclovir Tab [Zovirax*] 400 mg PO BID 03/14/22 Calcium Carbonate [Calcium] 1 tab PO BID 03/14/22 Cholecalciferol (Vitamin D3) [Vitamin D3] 25 mcg PO DAILY 03/14/22 Clopidogrel Bisulfate [Plavix] 75 mg PO DAILY 03/14/22 Multivitamin [Multivitamins] 1 each PO DAILY 03/14/22 Pantoprazole [Protonix Tab] 40 mg PO DAILY 03/14/22 Potassium Gluconate [Potassium] 99 mg PO BID 03/14/22 Rivaroxaban [Xarelto] 20 mg PO DAILY 03/14/22 Review of Systems Musculoskeletal: Hand Pain, Leg Pain, As per HPI Integumentary: Bruising, As per HPI <Libby Shaver - Last Filed: 03/14/22 22:24> Physical Examination - Physical Exam General: Alert, In no apparent distress, Oriented x3 HEENT: PERRLA, Mucous membr. moist/pink, Other (bruising L face), EOMI, Sclerae nonicteric Neck: Supple, 2+ carotid pulse no bruit, No LAD, Without JVD or thyroid abnormality Respiratory: Clear to auscultation bilaterally, Normal air movement Cardiovascular: Regular rate/rhythm, Normal S1 S2 Gastrointestinal: Normal bowel sounds, No tenderness Musculoskeletal: Swelling, Erythema, Tenderness, Cast in place Integumentary: No rashes Neurological: Normal speech, Normal strength at 5/5 x4 extr, Normal tone, Sensation intact, Normal affect - Studies Laboratory Data (last 24 hrs) 03/14/22 17:05: Sodium 133 L, Potassium 3.3 L, BUN 13, Creatinine 0.70, Glucose 118 H, Total Bilirubin 0.6, AST 23, ALT 34, Alkaline Phosphatase 61 03/14/22 17:05: WBC 9.2, Hgb 11.5 L, Hct 33.0 L, Plt Count 354 <Libby Shaver - Last Filed: 03/14/22 22:24> Assessment and Plan - Problems (Diagnosis) (1) Cellulitis and abscess of hand Current Visit: Yes Status: Acute (2) Fall Current Visit: Yes Status: Acute Qualifiers: Encounter type: subsequent encounter Qualified Code(s): W19.XXXD - Unspecified fall, subsequent encounter (3) Atrial fibrillation Current Visit: Yes Status: Chronic Qualifiers: Atrial fibrillation type: unspecified Qualified Code(s): I48.91 - Unspecified atrial fibrillation (4) Chronic anticoagulation Current Visit: Yes Status: Chronic (5) Hypertension Current Visit: Yes Status: Chronic Qualifiers: Hypertension type: primary hypertension Qualified Code(s): I10 - Essential (primary) hypertension (6) Hypothyroid Current Visit: No Status: Chronic Qualifiers: Hypothyroidism type: acquired Qualified Code(s): E03.9 - Hypothyroidism, unspecified - Plan -gen surg consultingElio Green was notified and is unavailable. says he will transfer patient if requires further intervention -NPO at midnight -hydralazine PRN BP spikes -cont ancef -dilaudid PRN pain and zofran PRN nausea -reconcile and cont home medications -SCDs for DVT PPx Discharge Plan: Home Plan to discharge in: 48 Hours - Advance Directives Does patient have a Living Will: No Does patient have a Durable POA for Healthcare: No - Code Status/Comfort Care Code Status Assessed: Yes (Full) Critical Care: No Time Spent Managing Pts Care (In Minutes): 70 <Libby Shaver - Last Filed: 03/14/22 22:24> Date of Service: 03/14/22 Subjective: HPI as mentioned above Physical Examination: Vitals: Afebrile vital signs are stable Physical exam: Cardiovascular: Within normal limits. Lungs: Within normal limits Abdomen: Within normal limits Neuro: Awake, alert, oriented to person place and time Assessment: 1. Hematoma Plan: 1. Continue with current plan of care as mentioned above <Woody Tamez - Last Filed: 03/16/22 07:27>
[2022-03-14] MEDS: NA CHLORIDE 0.9% 1,000 ML IV SCH (22:05)
[2022-03-14] MEDS ORDERED: NA CHLORIDE 0.9% 1,000 ML ONE (22:10)
[2022-03-14 22:44] VITALS: BMI 34.3
[2022-03-14] MEDS: HYDROMORPHONE HCL 1 MG/ML INJ IV PRN (22:51)
[2022-03-15] MEDS ORDERED: CEFAZOLIN 1 GM in NA CHLORIDE 0.9% 50 ML IVPB SCH (01:00)
[2022-03-15] MEDS: ONDANSETRON 4 MG/2 ML VIAL IV PRN ×4 (01:10→21:55)
[2022-03-15] MEDS ORDERED: ONDANSETRON 4 MG/2 ML VIAL ONE ×3 (01:12→12:09)
[2022-03-15] MEDS ORDERED: CEFAZOLIN SODIUM 1 GM/VIAL ONE ×2 (01:12→08:16)
[2022-03-15] MEDS ORDERED: NA CHLORIDE 0.9% 50 ML ONE (01:14)
[2022-03-15 04:04] LABS: Absolute Lymphocytes (CBC) 1.3 K/uL (0.7-4.9); Hematocrit 33.4 % (36.0-45.0); Lymphocytes % 8.3 % (15.3-44.8); MPV 7.6 fL (7.6-11.3); RBC Red Blood Cell Count 3.58 M/uL (3.86-4.86)
[2022-03-15 04:23] LABS: Magnesium 1.9 mg/dL (1.8-2.4); Phosphorus 4.2 mg/dL (2.5-4.9); Potassium 3.1 mmol/L (3.5-5.1)
[2022-03-15 04:28] LABS: Thyroid Stimulating Hormone 5.61 uIU/mL (0.360-3.740)
[2022-03-15] MEDS: HYDROMORPHONE HCL 1 MG/ML INJ IV PRN ×4 (04:45→20:30)
[2022-03-15] MEDS ORDERED: HYDROMORPHONE HCL 1 MG/ML INJ ONE ×2 (04:49→08:34)
[2022-03-15] MEDS ORDERED: POTASSIUM CL SA 10 MEQ TAB PO ONE (06:00)
[2022-03-15] MEDS: KCL 20 MEQ/100 mL IVPB 20 MEQ/100 ML BAG IV SCH ×2 (06:17→08:32)
[2022-03-15] MEDS ORDERED: KCL 20 MEQ/100 mL IVPB 100 ML IV ONE ×2 (06:17→08:16)
[2022-03-15] MEDS ORDERED: NA CHLORIDE 0.9% 1,000 ML ONE (08:16)
[2022-03-15] MEDS ORDERED: NA CHLORIDE 0.9% 100 ML IV ONE (08:17)
[2022-03-15] MEDS: CEFAZOLIN 1 GM in NA CHLORIDE 0.9% 100 ML IVPB SCH ×2 (08:31→18:28)
[2022-03-15] MEDS: NA CHLORIDE 0.9% 1,000 ML IV SCH ×2 (08:32→16:55)
[2022-03-15] MEDS ORDERED: BUPIVACAINE 0.25% PF 10 ML VIAL ONE (11:15)
[2022-03-15] MEDS ORDERED: propofoL 200 MG/20 ML VIAL IV ONE (11:33)
[2022-03-15] MEDS ORDERED: LIDOCAINE 2% MPF 5 ML VIAL ONE (11:34)
[2022-03-15] MEDS ORDERED: MIDAZOLAM HCL 2 MG/2 ML INJ ONE (11:34)
[2022-03-15] MEDS ORDERED: FENTANYL CITR 100 MCG/2 ML ONE (11:34)
[2022-03-15] MEDS ORDERED: dexAMETHasone 4 MG/ML VIAL ONE (12:09)
[2022-03-15] MEDS ORDERED: LIDOCAINE 1% W/EPI 1:100,000 10 ML VIAL ONE (12:18)
--- NOTE | 2022-03-15 12:42 | P.OP ---
Preoperative diagnosis: RIGHT Hand Traumatic Hematoma Postoperative diagnosis: RIGHT Hand Traumatic Hematoma Primary procedure: Incision and Drainage of RIGHT Hand Traumatic Hematoma Anesthesia: GETA + Local Estimated blood loss: <5cc Specimen: none Findings: clots with multiple age present Complications: None Transferred to: Recovery Room Condition: Good
[2022-03-15] MEDS: HYDROMORPHONE HCL 1 MG/ML INJ ONE ×4 (12:59→13:27)
[2022-03-15] MEDS ORDERED: NA CHLORIDE 0.9% 100 ML ONE (15:54)
--- NOTE | 2022-03-15 17:42 | CON ---
Date of Consultation: 03/15/2022 Brief History Of Present Illness: The patient is a 66-year-old female with past medical hi story of hypertension, hypothyroidism, hyperlipidemia, atrial fibrillation on chronic Eliquis, and a myocardial infarction, status post coronary artery stent 2 months ago, currently also on Plavix and a spirin, therefore on 3 anticoagulants concurrently, who presents after a fall out of bed after striki ng her face on the left periorbital area and right dorsal hand approximately 7 days ago. She states that the hands swell initially, but has been getting progressively worse over the course of the week with increased tightening, now significant pain. The pain has been getting worse over the past sever al days, but it came to ahead as of yesterday where it became essentially almost unbearable, as such came to the emergency room with the above-stated complaints. She has been continuing her anticoagula tion and had significant swelling to the hand and cellulitic changes. Capillary refill was present, but somewhat more sluggish on examination preoperatively in the emergency room. Past Medical History: Hypertension, hypothyroidism, hyperlipidemia, atrial fibrillation, on chronic Eliquis, myocardial infarction and coronary artery stent 2 months ago, on Plavix and aspirin. She al so has trigeminal neuralgia, mitral valve prolapse, seasonal allergies, edema to the lower extremitie s, chronic neck pain, electrolyte abnormalities. Past Surgical History: Includes hysterectomy, appendectomy, carpal tunnel release. Allergies: TO CODEINE AND IODINE. Home Medications: Include albuterol, aspirin, Lipitor, Wellbutrin, fish oil, fluticasone, Lasix, zhang apentin, Apresoline, Unithroid, Claritin, losartan, atenolol, Zovirax, calcium, vitamin D3, Plavix, m ultivitamin . Social History: She is and lives at home with her . She has a positive history of to bacco. Denies alcohol or recreational drug use. Family History: Significant for heart disease, hypertension, and liver disease including hepatitis C . Review of Systems: Ten-point review of systems other than HPI, denies. Physical Examination: General: At the time of my examination; she is awake, alert, oriented. Psychiatric: She is appropriate, conversive. HEENT: She has bruising and ecchymosis around her left periorbital area, which appears to be an evol ution of clot with yellowish discoloration. Minimal dark bruising is present at this point, predomin antly on the supraorbital aspect. Chest: Normal expansion and excursion. Cardiovascular: Regular rate, irregular rhythm. Pulmonary: Clear to auscultation bilaterally. Abdomen: Soft. Extremities: She has bilateral lower extremity swelling and swelling of the right dorsal hand with s evere tenderness and some cellulitic changes. Capillary refill is sluggish in the area. Palpable ul yesy and palmar arch are present on the palmar aspect. The dorsal hand is significantly swollen and v adan tender as described. Vital Signs: At time of my examination; blood pressure 137/78, pulse is 86, respiratory rate 18, tem perature 98.1. Pain was 9/10 and SpO2 98% on room air. Laboratory Data: She had a laboratory exam, which revealed a white blood cell count of 15.7, hemoglo bin is 11.6, hematocrit 32.4, platelet count was 358. Neutrophils are 83%. Her sodium was 134, pota ssium 3.1, chloride 97, carbon dioxide 32, BUN 14, creatinine 0.9, glucose was 151. Her troponin on admission was 10.1. Her COVID was negative. She had imaging performed, which included a CT head, C- spine on 03/14, officially read as no acute hemorrhage, hydrocephalus or extra-axial fluid collection s identified. No areas of brain edema or midline shift. Paranasal sinuses and mastoids are clear. Calvarium intact. CT C-spine showed no acute intracranial or cervical spine findings. She additiona lly had a hand x-ray of the right hand, which simply showed a large amount of soft tissue swelling on the dorsum of the hand. No acute fracture or dislocation. Assessment And Plan: This is a 66-year-old female, on multiple anticoagulants with a history as desc ribed above. 1.I recommend holding the anticoagulation at this time as it appears to be propagation and continued hematoma of this hand with expansion. 2.I have explained the risks, benefits, and alternatives of incision and drainage of the traumatic h ematoma of the right dorsal hand including, but not limited to bleeding, infection, damage to surroun ding tissues, numbness, paresthesias, decreased hand function, need for further operation and procedu res, ongoing wound care, continued bleeding particularly with her high risk comorbidities which will require ongoing chronic anticoagulation. The patient agrees to proceed as indicated. Thank you for this interesting consult. BREANNE/MARY Voice ID: [id number] Report ID: [id number]
[2022-03-15 22:22] VITALS: O2SAT 100
[2022-03-16] MEDS: HYDROMORPHONE HCL 1 MG/ML INJ IV PRN ×2 (00:05→05:41)
[2022-03-16] MEDS: CEFAZOLIN 1 GM in NA CHLORIDE 0.9% 100 ML IVPB SCH ×2 (00:35→09:35)
[2022-03-16] MEDS: NA CHLORIDE 0.9% 1,000 ML IV SCH (00:35)
--- NOTE | 2022-03-16 01:30 | OP ---
Date of Procedure: 03/15/2022 Surgeon: Shaquille Watkins MD, Brief History Of Present Illness: The patient is a 66-year-old female who had a myocardial infarctio n with stent placement approximately 2 months ago. She has been maintained on aspirin, Plavix, and s he has atrial fibrillation and as well is on Eliquis. She is on triple anticoagulation and ultimatel y had a fall. Head CT was negative. She ultimately did sustain a hematoma of her right hand on the dorsal aspect of her right hand. It is beginning slowly progressively larger, more tender, more pain ful, and causing tingling and severe pain in her hand, which has been getting worse and worse over th e course of time. As such, I was consulted for the above-stated issue. Preoperative Diagnosis: Right hand traumatic hematoma. Postoperative Diagnosis: Right hand traumatic hematoma. Procedure Performed: Incision and drainage of right hand traumatic hematoma. Anesthesia: General endotracheal plus local. Estimated Blood Loss: Less than 5 mL. Specimen: None. Findings: Clots with multiple age present and continued oozing. Complications: None. The patient transferred to recovery room in good condition. Implants: Avitene clotting powder. Procedure In Detail: After informed consent was obtained, the patient was brought to the operating r oom, prepped and draped in the usual sterile fashion after adequate anesthesia was achieved. I check ed a capillary refill which was present, but somewhat sluggish in all 5 digits. There was significan t swelling to the dorsal aspect of the hand. I made a linear incision overlying the hematoma along t he first web space linearly toward the wrist for approximately 0.5 cm. At this point, dark hematoma was appreciated. This was evacuated. I then performed pulse lavage and evacuated the remainder of t he clot. Capillary refill for improved significantly at the end of the procedure. I only evacuated clot. I did not do any electrocautery or resection below the level of the skin. Electrocautery was only used to fulgurate the edges of the skin as this continued to ooze. I injected the area with lid ocaine with epinephrine to assist with hemostasis. There was minimal oozing at the end of the proced ure. As such, the area was irrigated once again and Avitene clotting factor was placed with a piece of Surgicel on top. Pressure was held for approximately 5 minutes and good hemostasis was achieved. I removed the Surgicel at this point, left the Avitene in place and then packed the wound with half- inch plain packing and a sterile dressing placed over top. The patient tolerated the procedure well without evidence of complication and transferred to PACU in good condition. All counts were correct at the end of the case. BREANNE/MARY Voice ID: [id number] Report ID: [id number]
[2022-03-16] MEDS: ONDANSETRON 4 MG/2 ML VIAL IV PRN (05:41)
[2022-03-16 06:37] LABS: Absolute Lymphocytes (CBC) 1.8 K/uL (0.7-4.9); Hematocrit 29.8 % (36.0-45.0); Lymphocytes % 14.5 % (15.3-44.8); RBC Red Blood Cell Count 3.19 M/uL (3.86-4.86)
[2022-03-16 06:49] LABS: Potassium 3.8 mmol/L (3.5-5.1)
--- NOTE | 2022-03-16 07:30 | P.PN ---
Subjective Date of Service: 03/15/22 Subjective: No new changes, No C/O voiced, Improving Review of Systems 10-point ROS is otherwise unremarkable Physical Examination - Vital Signs Temperature: 98.4 F Blood Pressure: 129/57 Pulse: 84 Respirations: 17 Pulse Ox (%): 100 - Physical Exam General: Alert, In no apparent distress, Oriented x3 HEENT: Atraumatic, PERRLA, EOMI Neck: Supple, JVD not distended Respiratory: Clear to auscultation bilaterally, Normal air movement Cardiovascular: Regular rate/rhythm, Normal S1 S2 Gastrointestinal: Normal bowel sounds, Soft and benign, Non-distended, No tenderness Musculoskeletal: No tenderness Integumentary: No rashes Neurological: Normal speech, Normal tone, Normal affect Lymphatics: No axilla or inguinal lymphadenopathy - Studies Medications List Reviewed: Yes Assessment & Plan - Problems (Diagnosis) (1) Cellulitis and abscess of hand Current Visit: Yes Status: Acute (2) Atrial fibrillation Current Visit: Yes Status: Chronic Qualifiers: Atrial fibrillation type: unspecified Qualified Code(s): I48.91 - Unspecified atrial fibrillation (3) Hypertension Current Visit: Yes Status: Chronic Qualifiers: Hypertension type: primary hypertension Qualified Code(s): I10 - Essential (primary) hypertension (4) Hyponatremia Current Visit: No Status: Acute (5) Hypothyroid Current Visit: No Status: Chronic Qualifiers: Hypothyroidism type: acquired Qualified Code(s): E03.9 - Hypothyroidism, unspecified - Plan PLAN: 1. Continue with IV antibiotic 2. Surgical consultation 3. Gentle IV hydration 4. Monitor CBC 5. Pain control 6. GI and DVT prophylaxis - Advance Directives Does patient have a Living Will: No Does patient have a Durable POA for Healthcare: No
[2022-03-16] MEDS ORDERED: ALBUTEROL INHALER 60 PUFF/8 GM IH PRN (07:31)
--- NOTE | 2022-03-16 07:39 | EKG ---
Test Date: 2022-03-15 Test Time: 11:41:26 Distributor Of Directories: [employer] MEASUREMENT RESULTS: Intervals: Rate: 84 SC: QRSD: 98 QT: 408 QTc: 482 [place]: P: SC: QRS: 2 T: 59 INTERPRETIVE STATEMENTS: Atrial fibrillation Nonspecific ST and T wave abnormality, probably digitalis effect Prolonged QT Abnormal ECG Compared to ECG 10/24/2021 19:45:57 ST (T wave) deviation now present Prolonged QT interval now present Myocardial infarct finding no longer present Electronically Signed On 03-16-22 07:37:12 CDT by Timoteo Tejada
--- NOTE | 2022-03-16 07:45 | P.PN ---
Date of Service: 03/16/22 Subjective Subjective: Doing well with no new complaints. Still with some bleeding. Review of Systems 10-point ROS is otherwise unremarkable Physical Examination - Vital Signs Reviewed - Physical Exam General: Alert, In no apparent distress, Oriented x3 Respiratory: Clear to auscultation bilaterally, Normal air movement Cardiovascular: Regular rate/rhythm, Normal S1 S2 Gastrointestinal: Normal bowel sounds, Soft and benign, Non-distended, No tenderness Neurological: Normal speech, Normal tone, Normal affect Skin: Dressing intact on the right hand Assessment & Plan - Problems (Diagnosis) (1) Cellulitis and abscess of hand status post incision and debridement Current Visit: Yes Status: Acute (2) Atrial fibrillation Current Visit: Yes Status: Chronic Qualifiers: Atrial fibrillation type: unspecified Qualified Code(s): I48.91 - Unspecified atrial fibrillation (3) Hypertension Current Visit: Yes Status: Chronic Qualifiers: Hypertension type: primary hypertension Qualified Code(s): I10 - Essential (primary) hypertension (4) Hyponatremia Current Visit: No Status: Acute (5) Hypothyroid Current Visit: No Status: Chronic Qualifiers: Hypothyroidism type: acquired Qualified Code(s): E03.9 - Hypothyroidism, unspecified - Plan PLAN: 1. Continue with IV antibiotic 2. Surgical consultation appreciated 3. Hep-Lock IV 4. Dressing changes 5. Pain control 6. GI and DVT prophylaxis - Advance Directives Does patient have a Living Will: No Does patient have a Durable POA for Healthcare: No
[2022-03-16] MEDS ORDERED: HYDROCODONE/APAP 10/325 TAB PO PRN (07:57)
[2022-03-16] MEDS ORDERED: ALBUTEROL 2.5 MG/3 ML NEB SOL IH PRN ×2 (08:21→09:00)
[2022-03-16] MEDS ORDERED: LORATADINE 10 MG TAB PO SCH (09:00)
[2022-03-16] MEDS ORDERED: BUPROPION HCL XL 150 MG TAB PO SCH (09:00)
[2022-03-16] MEDS ORDERED: FUROSEMIDE 20 MG TABLET PO SCH (09:00)
[2022-03-16] MEDS ORDERED: GABAPENTIN 300 MG CAP PO SCH ×3 (09:00)
[2022-03-16] MEDS ORDERED: atenoloL 50 MG TAB PO SCH (09:00)
[2022-03-16] MEDS ORDERED: DOCOSAHEXANOIC AC/EPA 1000 MG PO SCH (09:00)
[2022-03-16] MEDS ORDERED: CLOPIDOGREL 75 MG TABLET PO SCH ×2 (09:00)
[2022-03-16] MEDS ORDERED: HYDRALAZINE HCL 25 MG TABLET PO SCH (09:00)
[2022-03-16] MEDS ORDERED: VITAMIN D 1000 UNIT TAB PO SCH (09:00)
[2022-03-16] MEDS ORDERED: ACYCLOVIR 400 MG TABLET PO SCH (09:00)
[2022-03-16] MEDS ORDERED: ATORVASTATIN 40 MG TAB PO SCH (09:00)
[2022-03-16] MEDS ORDERED: FLUTICASONE FUROATE 50 MCG NAS SCH (09:00)
[2022-03-16] MEDS ORDERED: ASPIRIN 81 MG CHEWABLE TABLET PO SCH (09:00)
[2022-03-16] MEDS ORDERED: CALCIUM CARBONATE 500 MG TAB PO SCH (09:00)
[2022-03-16] MEDS ORDERED: POTASSIUM CL SA 10 MEQ TAB PO ONE (09:00)
[2022-03-16] MEDS ORDERED: VITAMIN E 400 IU CAP PO SCH (09:00)
[2022-03-16] MEDS ORDERED: LEVOTHYROXINE SOD 0.075 MG TAB PO SCH (09:00)
[2022-03-16] MEDS ORDERED: ALBUTEROL 2.5 MG/3 ML NEB SOL NEB PRN (09:00)
[2022-03-16] MEDS ORDERED: LEVOTHYROXINE SOD 0.1 MG TAB PO SCH ×2 (09:00)
[2022-03-16] MEDS ORDERED: PANTOPRAZOLE 40MG TABLET PO SCH (09:00)
[2022-03-16 12:30] VITALS: BP 136/66; TEMP 97.6
[2022-03-17] MEDS ORDERED: LEVOTHYROXINE SOD 0.1 MG TAB PO SCH (06:30)
[2022-03-17] MEDS ORDERED: LEVOTHYROXINE SOD 0.075 MG TAB PO SCH (06:30)
== END 2022-03-16 13:30 | disposition home or self-care (01) | DRG 605 ==
LOC: ER 16:18 → ERHOLD 20:40 → 4TH 03-15 13:34
PROVIDERS: ADMIT Hospitalist; ATTEND Hospitalist
PROC: 0HCFXZZ Extirpation of Matter from Right Hand Skin, External Approach (ICD-10-PCS; principal; 2022-03-15 09:30)
DX: S60.221A Contusion of right hand, initial encounter (principal); L03.113 Cellulitis of right upper limb; I48.20 Chronic atrial fibrillation, unspecified; E87.1 Hypo-osmolality and hyponatremia; I10 Essential (primary) hypertension; E03.9 Hypothyroidism, unspecified; I34.1 Nonrheumatic mitral (valve) prolapse; E78.5 Hyperlipidemia, unspecified; Z79.01 Long term (current) use of anticoagulants; I25.2 Old myocardial infarction; Z95.5 Presence of coronary angioplasty implant and graft; Z20.822 Contact with and (suspected) exposure to COVID-19
CPT/HCPCS: 36415; 70450; 72125; 80048; 80053; 80061; 83735; 84100; 84439; 84443; 84484; 85025; 93005; 99285; J0690; J1100; J1170; J2250; J2405; J2704; J3010; J3480; J7030; J7040; U0003